=== PATIENT | female | born 2005 | race Caucasian/White ===

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

== ENCOUNTER → 2024-01-12 13:33 | Outpatient (CLI) | payer OTHER, MEDICAID, SELFPAY ==
[2024-01-12 15:16] LABS: Add Manual Diff / Slide Review NO; Basophils Absolute Auto 0 /uL (0-100); Basophils Percent Auto 0.3 % (0-2); Eosinophils Absolute Auto 100 /uL (0-450); Eosinophils Percent Auto 1.5 % (2-4); Hematocrit 49.3 % (36-46); Hemoglobin 16.8 g/dL (12.0-16.0); Lymphocytes Absolute Auto 2100 /uL (1100-4500); Lymphocytes Percent Auto 22.6 % (25-40); Mean Corpuscular Hemoglobin 32.4 PG (26-34); Mean Corpuscular Volume 95.2 fL (80-100); Monocytes Absolute Auto 500 /uL (0-900); Monocytes Percent Auto 5.2 % (3-14); Neutrophils Absolute Auto 6400 /uL (1500-7000); Neutrophils Percent Auto 70.4 % (50-75); Platelet Count 268 X10^3/uL (150-400); Red Blood Cell Count 5.18 X10^6/uL (4.0-5.2); Red Cell Distribution Width 16.1 % (11.6-14.8); White Blood Cell Count 9.2 X10^3/uL (4.5-11.0)
[2024-01-12 15:32] LABS: Alanine Aminotransferase 22 IU/L (<35); Albumin 4.5 g/dL (3.5-5.0); Albumin Globulin Ratio 1.5 (1.0-2.8); Alkaline Phosphatase 75 U/L (38-126); Aspartate Aminotransferase 32 IU/L (14-36); BUN Creatinine Ratio 18.8 (6-22); Bilirubin Total 0.7 mg/dL (0.2-1.3); Blood Urea Nitrogen 12 mg/dL (7-17); Calcium 9.2 mg/dL (8.4-10.2); Carbon Dioxide 27 mmol/L (22-32); Chloride 100 mmol/L (98-107); Estimated Glomerular Filt Rate > 60 mL/min (>60); Glucose 87 mg/dL (70-100); HEMOLYSIS < 15 (0-50); Potassium 3.6 mmol/L (3.4-5.1); Sodium 136 mmol/L (137-145); Total Protein 7.5 g/dL (6.3-8.2)
[2024-01-12 15:55] LABS: Progesterone, Total 4.19 ng/mL
[2024-01-12 16:10] LABS: Ferritin 19 ng/mL (6-137)
[2024-01-12 16:11] LABS: Estradiol, Total 51.7 pg/mL
== END ==
LOC: LAB 13:35
PROVIDERS: PCP Family Medicine; Referring Provider Naturopath; Visit Provider Naturopath
DX: F64.9 Gender identity disorder, unspecified (principal); N94.6 Dysmenorrhea, unspecified
CPT/HCPCS: 36415; 80053; 82670; 82728; 84144; 84402; 84403; 85025

== ENCOUNTER 2024-01-12 18:17 | Emergency (ER) | payer OTHER, MEDICAID, SELFPAY ==
[2024-01-12 18:28] VITALS: BP 138/100; PULSE 92; RESP 18; TEMP 36.8; O2SAT 99; BMI 23.4
[2024-01-12 19:11] LABS: Appearance Urine UA CLEAR; Bilirubin Urine UA NEGATIVE (NEGATIVE); Color Urine UA YELLOW; Glucose Urine UA NEGATIVE (Negative); Ketones Urine UA NEGATIVE (NEGATIVE); Leukocyte Esterase Urine UA 3+ (NEGATIVE); Nitrite Urine UA NEGATIVE (Negative); Occult Blood Urine UA NEGATIVE (Negative); Protein Urine UA NEGATIVE (Negative); Specific Gravity Urine UA <=1.005 (1.000-1.035); Urobilinogen Urine UA 0.2 E.U./dL (0.2)
[2024-01-12 19:15] LABS: pH Urine UA 6.5 (4.5-8.0)
[2024-01-12 19:19] LABS: Bacteria Urine Moderate (10-30); Culture Indicated Urine Specimen Cultured; RBC Urine 0-1/HPF (0-5/HPF); Squamous Epithelial Cell Urine 1-5 /HPF (0-5/HPF); Urine Volume 10mL (spun); WBC Urine 10-30/HPF (0-5/HPF)
--- NOTE | 2024-01-12 21:04 | DI.RAD.S_ITS ---
PROCEDURE: XR LUMBAR SPINE 2-3V INDICATIONS: LUMBAR BACK PAIN 'WANT TO KNOW IF I HAVE SCOLIOSIS' TECHNIQUE: 3 views of the lumbar spine were acquired. COMPARISON: [facility], [place], XR THORACIC SPINE 2V, 01/12/2024, 22:15. FINDINGS: Bones: 5 [id number] vertebrae are present. There is normal bony alignment. No vertebral body compression fractures. No suspicious bony lesions. Soft tissues: Overlying bowel gas pattern is normal. No suspicious soft tissue calcifications. IMPRESSION: No acute bony abnormality. Dictated by: Real De M.D. on 01/12/2024 at 22:58 Approved by: Real De M.D. on 01/12/2024 at 22:59
--- NOTE | 2024-01-12 21:04 | DI.RAD.S_ITS ---
PROCEDURE: XR THORACIC SPINE 2V INDICATIONS: lumbar back pain TECHNIQUE: 2 views of the thoracic spine were acquired. COMPARISON: [facility], [place], XR LUMBAR SPINE 2-3V, 01/12/2024, 22:15. FINDINGS: Bones: No fractures or dislocations. Minimal thoracic scoliosis. No suspicious bony lesions. 12 pairs of ribs are noted, and appear intact where visualized. Soft tissues: No paravertebral stripe thickening. IMPRESSION: Minimal thoracic scoliosis. Dictated by: Real De M.D. on 01/12/2024 at 22:56 Approved by: Real De M.D. on 01/12/2024 at 22:58
--- NOTE | 2024-01-12 21:05 | ED_ITS ---
HPI - Back Pain/Injury General Chief Complaint: Back Pain/Injury Stated Complaint: lower back px Time Seen by Provider: 01/12/24 20:17 Source: patient History of Present Illness HPI Narrative: 18yo FTM transgender patient presents for lower back pain. Patient states tylenol and ibuprofen don't work for pain, and occasionally he has to use a cane to ambulate. Patient states that he seen his primary care doctor for this issue, but ?nothing has been done?. States that he would like imaging to see if he has scoliosis Related Data Home Medications Medication Instructions Recorded Confirmed anastrozole 1 mg tablet 1 mg PO DAILY 08/12/23 11/20/23 testosterone cypionate 200 mg/mL 50 mg SUBCUT QWEEK 11/11/23 11/20/23 intramuscular oil Previous Rx's Medication Instructions Recorded oxcarbazepine 300 mg tablet See Rx Instructions PO BID #90 tabs 08/12/23 (Trileptal) propranolol 10 mg tablet 10 mg PO BID PRN anxiety, rapid 08/12/23 heart rate #60 tabs sertraline 100 mg tablet (Zoloft) 100 mg PO DAILY #90 tabs 10/06/23 dextroamphetamine-amphetamine ER 30 mg PO DAILY 30 days #30 caps 11/11/23 30 mg 24hr capsule,extend release (Adderall XR) lorazepam 0.5 mg tablet 0.25 - 0.5 mg (0.5 - 1 x 0.5 mg) 11/11/23 PO BID PRN anxiety/panic #30 tabs aripiprazole 5 mg tablet (Abilify) 5 mg PO DAILY #30 tabs 12/08/23 dextroamphetamine-amphetamine ER 30 mg PO DAILY #30 caps 12/08/23 30 mg 24hr capsule,extend release (Adderall XR) naltrexone 50 mg tablet 50 mg PO DAILY #30 tabs 12/08/23 methocarbamol 500 mg tablet 500 mg PO TID PRN muscle spasm #30 01/12/24 tabs methylprednisolone 4 mg tablets in See Rx Instructions PO .COMPLEX 01/12/24 a dose pack (Medrol ([place])) #21 ea Allergies Allergy/AdvReac Type Severity Reaction Status Date / Time [place] And Derivatives AdvReac Unknown Rash Uncoded 11/20/23 12:50 Patient History Medical History Alcohol addiction Bipolar 1 disorder Gender dysphoria Bulimia (~2020) History of bipolar disorder (~2017) Anorexia nervosa (~2019) Migraines (~2018) Fractures Chronic back pain (~2014) History of recurrent ear infection (~2014) Painful menstrual periods (~2017) History of self-harm ADHD (~2009) HCAMP (generalized anxiety disorder) (~2009) PTSD (post-traumatic stress disorder) (~2008) Major depression, single episode Family History Father Mental health problem Anxiety PTSD (post-traumatic stress disorder) Depression Substance use Mother Mental health problem Gastroparesis Gastritis History of bipolar disorder Depression History of anorexia nervosa History of bulimia PTSD (post-traumatic stress disorder) Anxiety Sister Mental health problem Autism PTSD (post-traumatic stress disorder) Anxiety ADHD Sister Mental health problem ADHD Grandmother Thyroid disorder History of anorexia nervosa Social History household members: friend(s) Smoking Status: Current every day smoker alcohol intake: former Smoking Status: Current every day smoker tobacco type: vaping alcohol intake frequency: a few times a month Alcohol type: beer and hard liquor Substance Use Type: marijuana Exam Initial Vital Signs Initial Vital Signs: Vital Signs Temperature 98.3 F 01/12/24 18:28 Pulse Rate 92 H 01/12/24 18:28 Respiratory Rate 18 01/12/24 18:28 Blood Pressure 138/100 H 01/12/24 18:28 Pulse Oximetry 99 01/12/24 18:28 Oxygen Delivery Method Room Air 01/12/24 18:28 Const: Awake, alert, no acute distress, nontoxic appearing MSK: Atraumatic, no midline tenderness, full range of motion, pulses equal Skin: Warm, Dry, intact, no rashes Neuro: AO x3, CN II-XII grossly intact, moves all extremities Course Orders Ordered: ED Orders 01/12/24 21:04 XR lumbar spine 2-3V Stat XR thoracic spine 2V Stat Discontinued Medications Ketorolac Tromethamine (Ketorolac 30 Mg/Ml Vial) 30 mg IM NOW ONE Stop: 01/12/24 21:06 Last Admin: 01/12/24 21:20 Dose: 30 mg Documented By: HAL Lidocaine (Lidocaine 5% Patch) 1 each TOP NOW ONE Stop: 01/12/24 21:06 Last Admin: 01/12/24 21:21 Dose: 1 each Documented By: HAL Methocarbamol (Methocarbamol 500 Mg Tablet) 750 mg PO NOW ONE Stop: 01/12/24 21:06 Last Admin: 01/12/24 21:19 Dose: 750 mg Documented By: HAL Vital Signs Vital signs: Vital Signs - 8 hr 01/12/24 23:12 Pulse Rate 94 H Respiratory Rate 16 Blood Pressure 133/85 Pulse Oximetry 100 Oxygen Delivery Method Room Air MDM - Back Pain/Injury Lab Data Labs: Lab Results 01/12/24 Range/Units 18:40 Urine Color Yellow Urine Appearance Clear Urine pH 6.5 (4.5-8.0) Ur Specific [place] <=1.005 (1.000-1.035) Urine Protein Negative (Negative) Urine Glucose (UA) Negative (Negative) g/dL Urine Ketones Negative (NEGATIVE) Urine Occult Blood Negative (Negative) Urine Nitrate Negative (Negative) Urine Bilirubin Negative (NEGATIVE) Urine Urobilinogen 0.2 (0.2) E.U./dL Ur Leukocyte Esterase 3+ H (NEGATIVE) Urine RBC 0-1/hpf (0-5/HPF) Urine WBC 10-30/hpf H (0-5/HPF) Ur Squamous Epith Cells 1-5 /hpf (0-5/HPF) Urine Bacteria Moderate (10-30) H (None) Ur Culture Indicated? Specimen cultured Vol Urine Centrifuged 10ml (spun) Point of Care Testing Test Results Negative Urine Dip Bedside Urine Glucose Negative Bedside Urine Bilirubin - Negative Bedside Urine Ketone - Negative Bedside Urine Occult Blood - Negative Bedside Urine Protein - Negative Bedside Urine Urobilinogen - Negative Bedside Urine Nitrite - Negative Bedside Urine Leukocytes +++ 500 Esterase MDM Narrative Medical decision making narrative: Lumbar back pain, patient states that they are most concerned about getting imaging to see if they truly have scoliosis that may be related to their lumbar back pain. No signs or symptoms of cauda equina, no midline tenderness. Patient given muscle relaxer and Toradol injection with improvement in pain. X- rays show mild thoracic scoliosis, no other acute findings. Patient given steroid pack and muscle relaxers, counseled on continued follow up with their primary care doctor. Note for work provided Discharge Plan Departure Patient Disposition: Home Clinical Impression: Lumbar back pain Instructions: DI for Low Back Pain Activity Restrictions/Additional Instructions: Your x-rays did show that you have a small amount of upper back curvature consistent with scoliosis. You can try muscle relaxers along with Tylenol and ibuprofen to see if this helps relieve your pain. Follow up with your primary care doctor Prescriptions: New methylprednisolone [Medrol ([place])] 4 mg tablets,dose pack See Rx Instructions .ROUTE .COMPLEX Qty: 21 0RF Rx Instructions: orally per package directions methocarbamol 500 mg tablet 500 mg PO TID PRN (Reason: muscle spasm) Qty: 30 0RF No Action sertraline [Zoloft] 100 mg tablet 100 mg PO DAILY Qty: 90 3RF testosterone cypionate 200 mg/mL oil 50 mg SUBCUT QWEEK lorazepam 0.5 mg tablet 0.25 - 0.5 mg PO BID PRN (Reason: anxiety/panic) Qty: 30 0RF dextroamphetamine-amphetamine [Adderall XR] 30 mg capsule,extended release 24hr 30 mg PO DAILY 30 Days Qty: 30 0RF Rx Instructions: rx 3/3 aripiprazole [Abilify] 5 mg tablet 5 mg PO DAILY Qty: 30 11RF naltrexone 50 mg tablet 50 mg PO DAILY Qty: 30 11RF dextroamphetamine-amphetamine [Adderall XR] 30 mg capsule,extended release 24hr 30 mg PO DAILY Qty: 30 0RF Rx Instructions: rx 1/1 anastrozole 1 mg tablet 1 mg PO DAILY oxcarbazepine [Trileptal] 300 mg tablet See Rx Instructions PO BID Qty: 90 11RF Hold Instructions: Home Medication placed on hold at Doctor's office Rx Instructions: 600 mg in the morning and 300 mg in the evening propranolol 10 mg tablet 10 mg PO BID PRN (Reason: anxiety, rapid heart rate) Qty: 60 11RF Referrals: Gabe Ayala DO [Primary Care Provider] - Stand Alone Forms: Patient Portal/API, Work Release Note
[2024-01-12] MEDS: methocarbamoL 500 MG TABLET 750 MG PO (21:19)
[2024-01-12] MEDS: KETOROLAC 30 MG/ML VIAL IM (21:20)
[2024-01-12] MEDS: LIDOCAINE 5% PATCH 1 EACH TOP (21:21)
[2024-01-12 23:12] VITALS: BP 133/85; PULSE 94; RESP 16; O2SAT 100
== END 2024-01-12 23:12 | disposition home or self-care (01) ==
PROVIDERS: Emergency Provider Emergency Medicine; PCP Family Medicine
DX: M54.50 Low back pain, unspecified (principal); F64.9 Gender identity disorder, unspecified; N94.6 Dysmenorrhea, unspecified
CPT/HCPCS: 36415; 72070; 72100; 80053; 81001; 81003; 81025; 82670; 82728; 84144; 84402; 84403; 85025; 87086; 96372; 99284; J1885

== ENCOUNTER 2024-01-18 01:47 | Emergency (ER) | payer OTHER, MEDICAID, SELFPAY ==
[2024-01-18 02:09] VITALS: BP 143/91; PULSE 85; RESP 16; TEMP 36.6; O2SAT 98; BMI 28.3
--- NOTE | 2024-01-18 02:17 | ED.PSYCH ---
HPI - Psych <López Hernandez, DO - Last Filed: 01/18/24 18:11> General Chief Complaint: Psychiatric Symptoms Stated Complaint: suicidal ideation, hurt himself Time Seen by Provider: 01/18/24 01:52 Source: patient Mode of arrival: Ambulatory Limitations: no limitations History of Present Illness HPI Narrative: Patient is a 18-year-old female to male transgender with a history of bipolar disorder who arrives the emergency department by private vehicle for evaluation of anxiety, insomnia, feelings that he was manic, inability to find his Ativan which she normally takes for anxiety and superficial scrapes to the left forearm. He states he did the scrapes the left forearm in order to hurt himself and not necessarily kill himself. He was trying to commit suicide 3 times in the past. Has had progressively worsening symptoms over the past couple months. He did have alcohol to drink tonight and potentially has been drinking more alcohol recently which maybe contributing to the presenting factors today. Related Data Home Medications Medication Instructions Recorded Confirmed anastrozole 1 mg tablet 1 mg PO DAILY 08/12/23 01/18/24 testosterone cypionate 200 mg/mL 35 mg SUBCUT QWEEK 11/11/23 01/18/24 intramuscular oil famotidine 40 mg tablet 40 mg PO DAILY 01/16/24 01/18/24 cetirizine 10 mg tablet (Zyrtec) 10 mg PO DAILY 01/18/24 01/18/24 Previous Rx's Medication Instructions Recorded propranolol 10 mg tablet 10 mg PO BID PRN anxiety, rapid 08/12/23 heart rate #60 tabs sertraline 100 mg tablet (Zoloft) 100 mg PO DAILY #90 tabs 10/06/23 dextroamphetamine-amphetamine ER 30 mg PO DAILY 30 days #30 caps 11/11/23 30 mg 24hr capsule,extend release (Adderall XR) lorazepam 0.5 mg tablet 0.25 - 0.5 mg (0.5 - 1 x 0.5 mg) 11/11/23 PO BID PRN anxiety/panic #30 tabs aripiprazole 5 mg tablet (Abilify) 5 mg PO DAILY #30 tabs 12/08/23 dextroamphetamine-amphetamine ER 30 mg PO DAILY #30 caps 12/08/23 30 mg 24hr capsule,extend release (Adderall XR) naltrexone 50 mg tablet 50 mg PO DAILY #30 tabs 12/08/23 methocarbamol 500 mg tablet 500 mg PO TID PRN muscle spasm #30 01/12/24 tabs methylprednisolone 4 mg tablets in See Rx Instructions PO .COMPLEX 01/12/24 a dose pack (Medrol (Kyaw)) #21 ea Allergies Allergy/AdvReac Type Severity Reaction Status Date / Time [place] And Derivatives AdvReac Unknown Rash Uncoded 01/16/24 09:54 Review of Systems <López Hernandez DO - Last Filed: 01/18/24 18:11> Review of Systems ROS Unobtainable: All systems reviewed & are unremarkable except as noted in HPI and below Patient History <DO Tammie Maldonado Last Filed: 01/18/24 18:11> Medical History Alcohol addiction Bipolar 1 disorder Gender dysphoria Bulimia (~2020) History of bipolar disorder (~2017) Anorexia nervosa (~2019) Migraines (~2018) Fractures Chronic back pain (~2014) History of recurrent ear infection (~2014) Painful menstrual periods (~2017) History of self-harm ADHD (~2009) CHAMP (generalized anxiety disorder) (~2009) PTSD (post-traumatic stress disorder) (~2008) Major depression, single episode Family History Father Mental health problem Anxiety PTSD (post-traumatic stress disorder) Depression Substance use Mother Mental health problem Gastroparesis Gastritis History of bipolar disorder Depression History of anorexia nervosa History of bulimia PTSD (post-traumatic stress disorder) Anxiety Sister Mental health problem Autism PTSD (post-traumatic stress disorder) Anxiety ADHD Sister Mental health problem ADHD Grandmother Thyroid disorder History of anorexia nervosa Social History household members: friend(s) Smoking Status: Current every day smoker alcohol intake: former Smoking Status: Current every day smoker tobacco type: vaping alcohol intake frequency: a few times a month Alcohol type: beer and hard liquor Substance Use Type: marijuana Exam <DO Tammie Maldonado Last Filed: 01/18/24 18:11> Initial Vital Signs Initial Vital Signs: Vital Signs Temperature 97.8 F 01/18/24 02:09 Pulse Rate 85 01/18/24 02:09 Respiratory Rate 16 01/18/24 02:09 Blood Pressure 143/91 H 01/18/24 02:09 Pulse Oximetry 98 01/18/24 02:09 Oxygen Delivery Method Room Air 01/18/24 02:09 Const General: cooperative, comfortable and No ill appearing HENMT Head: normal to inspection and normocephalic Resp Effort & Inspection: normal respiratory effort Cardio Rate: regular rate GI Inspection: normal to inspection Skin Other: Multiple Superficial abrasions volar aspect left forearm Neuro General: patient alert, patient awake, patient oriented x3 and moves all extremities Extrem General: capillary refill normal <Yessi Hinojosa MD - Last Filed: 01/19/24 13:12> Initial Vital Signs Initial Vital Signs: Vital Signs Temperature 97.8 F 01/18/24 02:09 Pulse Rate 85 01/18/24 02:09 Respiratory Rate 16 01/18/24 02:09 Blood Pressure 143/91 H 01/18/24 02:09 Pulse Oximetry 98 01/18/24 02:09 Oxygen Delivery Method Room Air 01/18/24 02:09 Course <López Hernandez DO - Last Filed: 01/18/24 18:11> Orders Ordered: Discontinued Medications Acetaminophen (Acetaminophen 325 Mg Tablet) 975 mg PO NOW ONE Stop: 01/18/24 08:11 Last Admin: 01/18/24 08:16 Dose: 975 mg Documented By: MIRANDA Lorazepam (Lorazepam 0.5 Mg Tablet) 1 mg PO NOW ONE Stop: 01/18/24 03:06 Last Admin: 01/18/24 03:13 Dose: 1 mg Documented By: Methocarbamol (Methocarbamol 500 Mg Tablet) 500 mg PO NOW ONE Stop: 01/18/24 16:32 Last Admin: 01/18/24 16:35 Dose: 500 mg Documented By: SB Vital Signs Vital signs: Vital Signs - 8 hr 01/18/24 11:56 01/18/24 15:46 01/18/24 16:49 Pulse Rate 82 78 81 Respiratory Rate 14 16 18 Blood Pressure 109/69 105/64 131/88 Pulse Oximetry 98 98 99 Oxygen Delivery Method Room Air Room Air Room Air <Yessi Hinojosa MD - Last Filed: 01/19/24 13:12> Orders Ordered: Discontinued Medications Acetaminophen (Acetaminophen 325 Mg Tablet) 975 mg PO NOW ONE Stop: 01/18/24 08:11 Last Admin: 01/18/24 08:16 Dose: 975 mg Documented By: MIRANDA Lorazepam (Lorazepam 0.5 Mg Tablet) 1 mg PO NOW ONE Stop: 01/18/24 03:06 Last Admin: 01/18/24 03:13 Dose: 1 mg Documented By: Methocarbamol (Methocarbamol 500 Mg Tablet) 500 mg PO NOW ONE Stop: 01/18/24 16:32 Last Admin: 01/18/24 16:35 Dose: 500 mg Documented By: SB Vital Signs Vital signs: Vital Signs - 8 hr 01/18/24 11:56 01/18/24 15:46 01/18/24 16:49 Pulse Rate 82 78 81 Respiratory Rate 14 16 18 Blood Pressure 109/69 105/64 131/88 Pulse Oximetry 98 98 99 Oxygen Delivery Method Room Air Room Air Room Air MDM - Psych <López Hernandez, - Last Filed: 01/18/24 18:11> Medical Records Attestation: I reviewed the patient's medical records. Lab Data Attestation: I reviewed the patient's lab results. 01/18/24 02:30 01/18/24 02:30 Labs: Lab Results 01/18/24 01/18/24 01/18/24 Range/Units 02:30 12:03 12:03 WBC 9.2 (4.5-11.0) X10^3/uL RBC 5.21 H (4.0-5.2) X10^6/uL Hgb 16.9 H (12.0-16.0) g/dL Hct 49.2 H (36-46) % MCV 94.5 (80-100) fL MCH 32.5 (26-34) PG MCHC 34.4 (30-36) % RDW 15.7 H (11.6-14.8) % Plt Count 279 (150-400) X10^3/uL Neut % (Auto) 75.2 H (50-75) % Lymph % (Auto) 19.5 L (25-40) % [place] % (Auto) 4.5 (3-14) % Eos % (Auto) 0.3 L (2-4) % Baso % (Auto) 0.5 (0-2) % Neut # (Auto) 6900 (1918-2096) /uL Lymph # (Auto) 1800 (8387-3355) /uL [place] # (Auto) 400 (0-900) /uL Eos # (Auto) 0 (0-450) /uL Baso # (Auto) 0 (0-100) /uL Sodium 138 (137-145) mmol/L Potassium 3.9 (3.4-5.1) mmol/L Chloride 104 (98-107) mmol/L Carbon Dioxide 23 (22-32) mmol/L BUN 10 (7-17) mg/dL Creatinine 0.64 (0.52-1.04) mg/dL Estimated GFR > 60 (>60) mL/min BUN/Creatinine Ratio 15.6 (6-22) Glucose 118 H (70-100) mg/dL Calcium 9.5 (8.4-10.2) mg/dL Total Bilirubin 0.5 (0.2-1.3) mg/dL AST 26 (14-36) IU/L ALT 23 (<35) IU/L Alkaline Phosphatase 76 (38-126) U/L Total Protein 7.7 (6.3-8.2) g/dL Albumin 4.7 (3.5-5.0) g/dL Globulin 3.0 (1.7-4.1) g/dL Albumin/Globulin Ratio 1.6 (1.0-2.8) Lipase 95 (23-300) U/L TSH 2.83 (0.47-4.68) uIU/mL Urine Color Yellow Urine Appearance Clear Urine pH 6.0 Normal (4.5-8.0) Ur Specific [place] 1.025 (1.000-1.035) Urine Protein Negative (Negative) Urine Glucose (UA) Negative (Negative) g/dL Urine Ketones Negative (NEGATIVE) Urine Occult Blood 3+ H (Negative) Urine Nitrate Negative (Negative) Urine Bilirubin Negative (NEGATIVE) Urine Urobilinogen 0.2 (0.2) E.U./dL Ur Leukocyte Esterase Trace H (NEGATIVE) Urine RBC 10-30/hpf H (0-5/HPF) Urine WBC 5-10/hpf H (0-5/HPF) Ur Squamous Epith Cells None seen (0-5/HPF) Urine Bacteria Occasional (0-1) (None) Ur Culture Indicated? Specimen cultured Vol Urine Centrifuged 10ml (spun) Salicylates < 1.0 (<20) mg/dL U Opiates 300ng/mL cut Negative (Negative) Ur Oxycodone Screen Negative (Negative) Urine Methadone Screen Negative (Negative) Acetaminophen < 10 (10-30) ug/mL Ur Barbiturates Screen Negative (Negative) U Tricyclic Antidepress Negative (Negative) Ur Phencyclidine Scrn Negative (Negative) Ur Amphetamines Screen Positive H (Negative) U Methamphetamines Scrn Negative (Negative) Ur MDMA Scrn (Ecstasy) Negative (Negative) U Benzodiazepines Scrn Positive H (Negative) Urine Cocaine Screen Negative (Negative) U Marijuana (THC) Screen Positive H (Negative) Urine Specific [place] Normal (Normal) Ethyl Alcohol 70 H ( - 10) mg/dL Ur Creatinine Normal (Normal) SARS-CoV-2 (PCR) (Negative) 01/18/24 Range/Units 12:20 WBC (4.5-11.0) X10^3/uL RBC (4.0-5.2) X10^6/uL Hgb (12.0-16.0) g/dL Hct (36-46) % MCV (80-100) fL MCH (26-34) PG MCHC (30-36) % RDW (11.6-14.8) % Plt Count (150-400) X10^3/uL Neut % (Auto) (50-75) % Lymph % (Auto) (25-40) % [place] % (Auto) (3-14) % Eos % (Auto) (2-4) % Baso % (Auto) (0-2) % Neut # (Auto) (0913-0752) /uL Lymph # (Auto) (4207-8042) /uL [place] # (Auto) (0-900) /uL Eos # (Auto) (0-450) /uL Baso # (Auto) (0-100) /uL Sodium (137-145) mmol/L Potassium (3.4-5.1) mmol/L Chloride (98-107) mmol/L Carbon Dioxide (22-32) mmol/L BUN (7-17) mg/dL Creatinine (0.52-1.04) mg/dL Estimated GFR (>60) mL/min BUN/Creatinine Ratio (6-22) Glucose (70-100) mg/dL Calcium (8.4-10.2) mg/dL Total Bilirubin (0.2-1.3) mg/dL AST (14-36) IU/L ALT (<35) IU/L Alkaline Phosphatase (38-126) U/L Total Protein (6.3-8.2) g/dL Albumin (3.5-5.0) g/dL Globulin (1.7-4.1) g/dL Albumin/Globulin Ratio (1.0-2.8) Lipase (23-300) U/L TSH (0.47-4.68) uIU/mL Urine Color Urine Appearance Urine pH (4.5-8.0) Ur Specific [place] (1.000-1.035) Urine Protein (Negative) Urine Glucose (UA) (Negative) g/dL Urine Ketones (NEGATIVE) Urine Occult Blood (Negative) Urine Nitrate (Negative) Urine Bilirubin (NEGATIVE) Urine Urobilinogen (0.2) E.U./dL Ur Leukocyte Esterase (NEGATIVE) Urine RBC (0-5/HPF) Urine WBC (0-5/HPF) Ur Squamous Epith Cells (0-5/HPF) Urine Bacteria (None) Ur Culture Indicated? Vol Urine Centrifuged Salicylates (<20) mg/dL U Opiates 300ng/mL cut (Negative) Ur Oxycodone Screen (Negative) Urine Methadone Screen (Negative) Acetaminophen (10-30) ug/mL Ur Barbiturates Screen (Negative) U Tricyclic Antidepress (Negative) Ur Phencyclidine Scrn (Negative) Ur Amphetamines Screen (Negative) U Methamphetamines Scrn (Negative) Ur MDMA Scrn (Ecstasy) (Negative) U Benzodiazepines Scrn (Negative) Urine Cocaine Screen (Negative) U Marijuana (THC) Screen (Negative) Urine Specific [place] (Normal) Ethyl Alcohol ( - 10) mg/dL Ur Creatinine (Normal) SARS-CoV-2 (PCR) Negative (Negative) Point of Care Testing Test Results Negative MDM Narrative Medical decision making narrative: Patient reports feeling depressed. Does have thoughts of suicide but no specific plan. Superficial cuts to left forearm. Patient was medically cleared. Social work consult placed. Care turned over to day provider to disposition. Dr. Hinojosa - Care of patient signed to me by Dr. Hernandez. Patient resting comfortably, no new complaints. Pending TRAFFIC ENGINEERING TECHNICIAN evaluation. Dr hernandez: Patient has been seen by social work. Has been accepted at [facility]. Continues to be medically cleared. Patient was stable for transport. <Yessi Hinojosa MD - Last Filed: 01/19/24 13:12> Lab Data Labs: Lab Results 01/18/24 01/18/24 01/18/24 Range/Units 02:30 12:03 12:03 WBC 9.2 (4.5-11.0) X10^3/uL RBC 5.21 H (4.0-5.2) X10^6/uL Hgb 16.9 H (12.0-16.0) g/dL Hct 49.2 H (36-46) % MCV 94.5 (80-100) fL MCH 32.5 (26-34) PG MCHC 34.4 (30-36) % RDW 15.7 H (11.6-14.8) % Plt Count 279 (150-400) X10^3/uL Neut % (Auto) 75.2 H (50-75) % Lymph % (Auto) 19.5 L (25-40) % [place] % (Auto) 4.5 (3-14) % Eos % (Auto) 0.3 L (2-4) % Baso % (Auto) 0.5 (0-2) % Neut # (Auto) 6900 (1742-6935) /uL Lymph # (Auto) 1800 (5011-5041) /uL [place] # (Auto) 400 (0-900) /uL Eos # (Auto) 0 (0-450) /uL Baso # (Auto) 0 (0-100) /uL Sodium 138 (137-145) mmol/L Potassium 3.9 (3.4-5.1) mmol/L Chloride 104 (98-107) mmol/L Carbon Dioxide 23 (22-32) mmol/L BUN 10 (7-17) mg/dL Creatinine 0.64 (0.52-1.04) mg/dL Estimated GFR > 60 (>60) mL/min BUN/Creatinine Ratio 15.6 (6-22) Glucose 118 H (70-100) mg/dL Calcium 9.5 (8.4-10.2) mg/dL Total Bilirubin 0.5 (0.2-1.3) mg/dL AST 26 (14-36) IU/L ALT 23 (<35) IU/L Alkaline Phosphatase 76 (38-126) U/L Total Protein 7.7 (6.3-8.2) g/dL Albumin 4.7 (3.5-5.0) g/dL Globulin 3.0 (1.7-4.1) g/dL Albumin/Globulin Ratio 1.6 (1.0-2.8) Lipase 95 (23-300) U/L TSH 2.83 (0.47-4.68) uIU/mL Urine Color Yellow Urine Appearance Clear Urine pH 6.0 Normal (4.5-8.0) Ur Specific [place] 1.025 (1.000-1.035) Urine Protein Negative (Negative) Urine Glucose (UA) Negative (Negative) g/dL Urine Ketones Negative (NEGATIVE) Urine Occult Blood 3+ H (Negative) Urine Nitrate Negative (Negative) Urine Bilirubin Negative (NEGATIVE) Urine Urobilinogen 0.2 (0.2) E.U./dL Ur Leukocyte Esterase Trace H (NEGATIVE) Urine RBC 10-30/hpf H (0-5/HPF) Urine WBC 5-10/hpf H (0-5/HPF) Ur Squamous Epith Cells None seen (0-5/HPF) Urine Bacteria Occasional (0-1) (None) Ur Culture Indicated? Specimen cultured Vol Urine Centrifuged 10ml (spun) Salicylates < 1.0 (<20) mg/dL U Opiates 300ng/mL cut Negative (Negative) Ur Oxycodone Screen Negative (Negative) Urine Methadone Screen Negative (Negative) Acetaminophen < 10 (10-30) ug/mL Ur Barbiturates Screen Negative (Negative) U Tricyclic Antidepress Negative (Negative) Ur Phencyclidine Scrn Negative (Negative) Ur Amphetamines Screen Positive H (Negative) U Methamphetamines Scrn Negative (Negative) Ur MDMA Scrn (Ecstasy) Negative (Negative) U Benzodiazepines Scrn Positive H (Negative) Urine Cocaine Screen Negative (Negative) U Marijuana (THC) Screen Positive H (Negative) Urine Specific [place] Normal (Normal) Ethyl Alcohol 70 H ( - 10) mg/dL Ur Creatinine Normal (Normal) SARS-CoV-2 (PCR) (Negative) 01/18/24 Range/Units 12:20 WBC (4.5-11.0) X10^3/uL RBC (4.0-5.2) X10^6/uL Hgb (12.0-16.0) g/dL Hct (36-46) % MCV (80-100) fL MCH (26-34) PG MCHC (30-36) % RDW (11.6-14.8) % Plt Count (150-400) X10^3/uL Neut % (Auto) (50-75) % Lymph % (Auto) (25-40) % [place] % (Auto) (3-14) % Eos % (Auto) (2-4) % Baso % (Auto) (0-2) % Neut # (Auto) (2878-1933) /uL Lymph # (Auto) (1418-8683) /uL [place] # (Auto) (0-900) /uL Eos # (Auto) (0-450) /uL Baso # (Auto) (0-100) /uL Sodium (137-145) mmol/L Potassium (3.4-5.1) mmol/L Chloride (98-107) mmol/L Carbon Dioxide (22-32) mmol/L BUN (7-17) mg/dL Creatinine (0.52-1.04) mg/dL Estimated GFR (>60) mL/min BUN/Creatinine Ratio (6-22) Glucose (70-100) mg/dL Calcium (8.4-10.2) mg/dL Total Bilirubin (0.2-1.3) mg/dL AST (14-36) IU/L ALT (<35) IU/L Alkaline Phosphatase (38-126) U/L Total Protein (6.3-8.2) g/dL Albumin (3.5-5.0) g/dL Globulin (1.7-4.1) g/dL Albumin/Globulin Ratio (1.0-2.8) Lipase (23-300) U/L TSH (0.47-4.68) uIU/mL Urine Color Urine Appearance Urine pH (4.5-8.0) Ur Specific [place] (1.000-1.035) Urine Protein (Negative) Urine Glucose (UA) (Negative) g/dL Urine Ketones (NEGATIVE) Urine Occult Blood (Negative) Urine Nitrate (Negative) Urine Bilirubin (NEGATIVE) Urine Urobilinogen (0.2) E.U./dL Ur Leukocyte Esterase (NEGATIVE) Urine RBC (0-5/HPF) Urine WBC (0-5/HPF) Ur Squamous Epith Cells (0-5/HPF) Urine Bacteria (None) Ur Culture Indicated? Vol Urine Centrifuged Salicylates (<20) mg/dL U Opiates 300ng/mL cut (Negative) Ur Oxycodone Screen (Negative) Urine Methadone Screen (Negative) Acetaminophen (10-30) ug/mL Ur Barbiturates Screen (Negative) U Tricyclic Antidepress (Negative) Ur Phencyclidine Scrn (Negative) Ur Amphetamines Screen (Negative) U Methamphetamines Scrn (Negative) Ur MDMA Scrn (Ecstasy) (Negative) U Benzodiazepines Scrn (Negative) Urine Cocaine Screen (Negative) U Marijuana (THC) Screen (Negative) Urine Specific [place] (Normal) Ethyl Alcohol ( - 10) mg/dL Ur Creatinine (Normal) SARS-CoV-2 (PCR) Negative (Negative) Point of Care Testing Test Results Negative MDM Narrative Medical decision making narrative: Patient reports feeling depressed. Does have thoughts of suicide but no specific plan. Superficial cuts to left forearm. Patient was medically cleared. Social work consult placed. Care turned over to day provider to disposition. Dr. Hinojosa - Care of patient signed to me by Dr. Hernandez. Patient resting comfortably, no new complaints. Pending TRAFFIC ENGINEERING TECHNICIAN evaluation. Discharge Plan Departure Patient Disposition: Xfer Psychiatric Hosp Clinical Impression: Suicidal ideation, Abrasion of skin, Deliberate self-cutting Prescriptions: No Action sertraline [Zoloft] 100 mg tablet 100 mg PO DAILY Qty: 90 3RF testosterone cypionate 200 mg/mL oil 35 mg SUBCUT QWEEK lorazepam 0.5 mg tablet 0.25 - 0.5 mg PO BID PRN (Reason: anxiety/panic) Qty: 30 0RF dextroamphetamine-amphetamine [Adderall XR] 30 mg capsule,extended release 24hr 30 mg PO DAILY 30 Days Qty: 30 0RF Rx Instructions: rx 3/3 aripiprazole [Abilify] 5 mg tablet 5 mg PO DAILY Qty: 30 11RF naltrexone 50 mg tablet 50 mg PO DAILY Qty: 30 11RF dextroamphetamine-amphetamine [Adderall XR] 30 mg capsule,extended release 24hr 30 mg PO DAILY Qty: 30 0RF Rx Instructions: rx 1/1 famotidine 40 mg tablet 40 mg PO DAILY anastrozole 1 mg tablet 1 mg PO DAILY propranolol 10 mg tablet 10 mg PO BID PRN (Reason: anxiety, rapid heart rate) Qty: 60 11RF cetirizine [Zyrtec] 10 mg Tablet 10 mg PO DAILY methylprednisolone [Medrol (Kyaw)] 4 mg tablets,dose pack See Rx Instructions .ROUTE .COMPLEX Qty: 21 0RF Rx Instructions: orally per package directions methocarbamol 500 mg tablet 500 mg PO TID PRN (Reason: muscle spasm) Qty: 30 0RF Referrals: Gabe Ayala DO [Primary Care Provider] -
[2024-01-18 02:43] LABS: Add Manual Diff / Slide Review NO; Basophils Absolute Auto 0 /uL (0-100); Basophils Percent Auto 0.5 % (0-2); Eosinophils Absolute Auto 0 /uL (0-450); Eosinophils Percent Auto 0.3 % (2-4); Hematocrit 49.2 % (36-46); Hemoglobin 16.9 g/dL (12.0-16.0); Lymphocytes Absolute Auto 1800 /uL (1100-4500); Lymphocytes Percent Auto 19.5 % (25-40); Mean Corpuscular HGB Conc 34.4 % (30-36); Mean Corpuscular Hemoglobin 32.5 PG (26-34); Mean Corpuscular Volume 94.5 fL (80-100); Monocytes Absolute Auto 400 /uL (0-900); Monocytes Percent Auto 4.5 % (3-14); Neutrophils Absolute Auto 6900 /uL (1500-7000); Neutrophils Percent Auto 75.2 % (50-75); Platelet Count 279 X10^3/uL (150-400); Red Blood Cell Count 5.21 X10^6/uL (4.0-5.2); Red Cell Distribution Width 15.7 % (11.6-14.8); White Blood Cell Count 9.2 X10^3/uL (4.5-11.0)
[2024-01-18 02:54] LABS: Acetaminophen < 10 ug/mL (10-30); Alanine Aminotransferase 23 IU/L (<35); Albumin 4.7 g/dL (3.5-5.0); Albumin Globulin Ratio 1.6 (1.0-2.8); Alkaline Phosphatase 76 U/L (38-126); Aspartate Aminotransferase 26 IU/L (14-36); BUN Creatinine Ratio 15.6 (6-22); Bilirubin Total 0.5 mg/dL (0.2-1.3); Blood Urea Nitrogen 10 mg/dL (7-17); Calcium 9.5 mg/dL (8.4-10.2); Carbon Dioxide 23 mmol/L (22-32); Chloride 104 mmol/L (98-107); Estimated Glomerular Filt Rate > 60 mL/min (>60); Ethanol (ETOH) 70 mg/dL; Glucose 118 mg/dL (70-100); HEMOLYSIS < 15 (0-50); Lipase 95 U/L (23-300); Potassium 3.9 mmol/L (3.4-5.1); Salicylate < 1.0 mg/dL (<20); Sodium 138 mmol/L (137-145); Total Protein 7.7 g/dL (6.3-8.2)
[2024-01-18] MEDS: LORazepam 0.5 MG TABLET 1 MG PO (03:13)
[2024-01-18 03:24] LABS: Thyroid Stimulating Hormone 2.83 uIU/mL (0.47-4.68)
[2024-01-18 08:11] VITALS: BP 130/70; PULSE 75; RESP 18; O2SAT 100
[2024-01-18] MEDS: ACETAMINOPHEN 325 MG TABLET 975 MG PO (08:16)
[2024-01-18 11:56] VITALS: BP 109/69; PULSE 82; RESP 14; O2SAT 98
--- NOTE | 2024-01-18 11:57 | PC.NURSE ---
GEOGRAPHY TEACHER Note: Patient encouraged to give urine sample. Patient denies having to use the restroom at this time.
[2024-01-18 12:19] LABS: UR Morphine/Opiate cutoff 300 Negative (Negative); Ur Creatinine Normal (Normal); Ur Specific Gravity Normal (Normal); Urine Amphetamines Positive (Negative); Urine Barbiturates Negative (Negative); Urine Benzodiazepines Positive (Negative); Urine Cocaine Negative (Negative); Urine MDMA Negative (Negative); Urine Methadone Negative (Negative); Urine Methamphetamines Negative (Negative); Urine Oxycodone Negative (Negative); Urine Phencyclidine Negative (Negative); Urine Tetrahydrocannabinol Positive (Negative); Urine Tricyclic Antidepressant Negative (Negative); Urine pH Normal (Normal)
[2024-01-18 12:27] LABS: Appearance Urine UA CLEAR; Bacteria Urine Occasional (0-1); Bilirubin Urine UA NEGATIVE (NEGATIVE); Color Urine UA YELLOW; Culture Indicated Urine Specimen Cultured; Glucose Urine UA NEGATIVE (Negative); Ketones Urine UA NEGATIVE (NEGATIVE); Leukocyte Esterase Urine UA TRACE (NEGATIVE); Nitrite Urine UA NEGATIVE (Negative); Occult Blood Urine UA 3+ (Negative); Protein Urine UA NEGATIVE (Negative); RBC Urine 10-30/HPF (0-5/HPF); Specific Gravity Urine UA 1.025 (1.000-1.035); Squamous Epithelial Cell Urine None Seen (0-5/HPF); Urine Volume 10mL (spun); Urobilinogen Urine UA 0.2 E.U./dL (0.2); WBC Urine 5-10/HPF (0-5/HPF)
--- NOTE | 2024-01-18 12:40 | CM.SWNOTE ---
ED HAND CROWN POUNCER Assessment Note HAND CROWN POUNCER - Community Outreach Manager Assessment HAND CROWN POUNCER/Community Outreach Manager Assessment Time Spent with Patient Start date 01/18/24 Visit Start Time 11:55 End date 01/18/24 Visit End Time 12:10 Total time Care Management spent on 15 minutes patient visit-in minutes Mental Health Screening Include Onset, Duration, Intensity Presenting Problem Patient presents to ED last night due to concern for increase in SI, relapse in self harm last night for the first time in a long time and afraid of keeping self safe. Patient has hx of suicide attempts, most recently 3 years ago. Patient presents seeking voluntary inpatient hospitalization. Precipitating Event(s) Patient states they are about to move into apartment on their own for the first time. Patient endorses increase in SI over the last 2 months, noticed increase in drinking in the last couple months and noticing lack of self control. Patient states they just started experiencing visual hallucinations for the first time as well. Patient endorses lack of sleep as well. Patient Strengths Patient has supports and patient is seeking help. Current Behavioral Health Provider(s) Patient denies any current Include Facility, Provider, Ph. # outpatient MH or EMILY providers but is interested in them. Psych. Hx Mental Health and Chemical Patient has hx of Bipolar 1 Dependency Disorder, ETOH use disorder, ADHD, CHAMP, PTSD, and Depression. Patient has hx of ETOH use, most recent use yesterday, patient endorses increase in ETOH use, daily Marijuana use and states they recently huffed CO2 from a can. Patient states they have been struggling with their self control and impulse control lately. Patient is prescribed Abilify and recently started the medication a month ago, patient also takes Sertraline and Adderall, patient endorses concern that the Sertraline does not help their depression anymore. Family Hx of Behavioral Abuse Patient has family hx of mental illness, patient's mother has Bipolar Disorder and patient's father struggled with alcohol disorder and patient states he almost from it. Psychiatric Hospitalizations (date(s)/ Patient was at [facility] location) in 2021 after suicide attempt. Psychosocial information & Support Patient is 18 y/o transgender Systems male (He/Him/His) who resides in [place]. 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 Substance Abuse Screening Include Onset, Duration, Intensity Presenting Problem Patient states that they have been drinking 4-5 vodka drinks a day in recent months. Patient presented with a BAL of 70 upon arrival. Rehab Facilities? ((Date(s), Location(s) Patient has a hx of going to ) detox in November 2023 for ETOH use. Legal Concerns Legal Matters - Outstanding Issues None reported Mental Status Orientation (Person/Place/Time) A/Ox4 Stated Mood mentally ill Affect (Congruent with Mood?) disthymic, full range, congruent with mood. Thought Content - Specify/Describe Patient denies auditory Obsessions, Delusions, Hallucinations hallucinations but states that yesterday they started experiencing visual hallucinations. Thought Processes (Mtqiwtc-Bcrbzefk-Utzp goal oriented, coherent Idwvfnni-Pvrfjxzf-Zoiazbumhr- Wkbokvempelrds-Ueptxwd-Dxclhhahrlyl- Thought Blocking) Speech (Jlrbdb-Xhjz-Netjcsm-Rapid-Soft- normal, soft Loud-Pressured) Motor (Effafd-Vexdeacly-Jsok-Other) normal Insight (Rqfd-Ptjh-Cjfn/Limited) fair/limited due to age Judgement (Vvpl-Zpkm-Jmdm/Limited) fair/limited due to age Impulse Control (Adequate-Impaired) adequate during assessment, patient endorses concern for their impulse control. Memory (Bicpaekgm-Pxjdmn-Dvmtue, intact, not formally assessed Impaired-Intact) Concentration (Intact-Impaired) intact Attention (Intact-Impaired) intact Behavior (Appropriate-Inappropriate) appropriate Additional Comment patient presents as calm, cooperative and communicative. Risk Assessment Suicidal Ideation (Plan) Yes Homicidal Ideation (Plan) No Comment Patient presents with increasing SI, no current thoughts of plans. Patient is fearful of acting on SI impulsively. Patient engaged in self harm for the first time in a long time last night with razor on left forearm. Patient endorses hx of 3 suicide attempts, patient overdosed at age 12, cut self in attempt to bleed out at age 14 and attempted to hang self at age 15. Intervention Intervention HAND CROWN POUNCER enters room to meet with patient. Patient presents with concern for increasing SI, recent self harm, recent increase in ETOH use and lack of self control. Patient endorses he is seeking voluntary inpatient hospitalization. It is the opinion of this HAND CROWN POUNCER that patient would be appropriate for and benefit from voluntary co-occurring hospitalization for safety, crisis stabilization and medication management. HAND CROWN POUNCER reviews this with ED provider Dr. Hinojosa who indicates agreement and understanding. Plan RA Plan HAND CROWN POUNCER to seek voluntary co- occurring placement for patient upon medical clearance. EDE GonzalezSW
[2024-01-18 12:42] LABS: COVID19 -Nasal RAPID Negative (Negative)
--- NOTE | 2024-01-18 15:34 | PC.NURSE ---
Addendum entered by Riley Riddle R.N. 01/18/24 15:48: This RN checks on patient and asks if he has 2 weeks of Anastrozole. He does not and does not have a way of getting some. He states I'm OK not taking them for 2 weeks. [facility] made aware and will talk to their provider. Original Note: Spoke to Alice DANIELS @ [facility] ([phone]). Pt needs to provide 2 wks of testosterone and 2 wks of Anastrozole in order to be admitted to their program. [facility] RN and [facility] aware. Will discuss with pt. Negative preg test results faxed to [phone]
[2024-01-18 15:46] VITALS: BP 105/64; PULSE 78; RESP 16; O2SAT 98
[2024-01-18] MEDS: methocarbamoL 500 MG TABLET PO (16:35)
[2024-01-18 16:49] VITALS: BP 131/88; PULSE 81; RESP 18; O2SAT 99
--- NOTE | 2024-01-18 18:17 | CM.SWNOTE ---
ED PLANNING ENGINEER Note PLANNING ENGINEER calls facilities with co-occurring treatment. PLANNING ENGINEER calls [facility], it is reported that they have beds and can review patient. PLANNING ENGINEER calls [facility], it is reported that they have beds and can review patient. [facility] speaks with RN and it is reported that patient will need to bring Testosterone and Estogen blocking rx with two week supply. Patient has Testosterone rx but is out of the other medication with out new refill. Patient states he is fine without rx for two weeks. [facility] states that they have rx for Testosterone and Estogen blocking medication at facility and they can accept patient. Patient endorses preference for [facility]. Patient accepted at [facility], arrival time of 2100. Intake -Candice, Accepting provider ALISHA Salcedo. RN-RN Ph. # [phone]. PLANNING ENGINEER informs [facility] of acceptance elsewhere. PLANNING ENGINEER calls [facility] and schedules transport for 1939. PLANNING ENGINEER to inform patient of this, patient is currently sleeping. PLANNING ENGINEER to provide patient with crisis resources, EMILY resources, and list of MH providers that accept patient's insurance. Plan: patient to transfer to [facility] in [place] for voluntary dual dx/co-occurring treatment this evening. EDE GonzalezSW
[2024-01-18 19:47] VITALS: BP 128/64; PULSE 73; RESP 16; O2SAT 95
--- NOTE | 2024-01-18 20:08 | PC.NURSE ---
This RN calls and gives report to Masood at [facility].
== END 2024-01-18 19:45 ==
PROVIDERS: Emergency Medicine; Emergency Provider Emergency Medicine; PCP Family Medicine
DX: R45.851 Suicidal ideations (principal); S50.812A Abrasion of left forearm, initial encounter; X78.9XXA Intentional self-harm by unspecified sharp object, initial encounter; Z11.52 Encounter for screening for COVID-19
CPT/HCPCS: 36415; 80053; 80305; 80320; 80329; 81001; 81025; 83690; 84443; 85025; 87086; 87635; 99284; G0480

== ENCOUNTER → 2024-02-20 14:29 | Outpatient (CLI) | payer OTHER, MEDICAID, SELFPAY | PROVIDERS: PCP Family Medicine; Referring Provider Internal Medicine; Visit Provider Internal Medicine | DX: Z23 Encounter for immunization (principal) | CPT/HCPCS: 90471; 90656 ==

== ENCOUNTER 2024-02-27 18:03 | Emergency (ER) | payer OTHER, MEDICAID, SELFPAY ==
[2024-02-27] VITALS (9 sets, daily range): BP systolic 128–152; BP diastolic 71–88; PULSE 62–100; RESP 16–18; TEMP 36.8; O2SAT 97–99; BMI 27.3
--- NOTE | 2024-02-27 18:15 | DI.RAD.S_ITS ---
PROCEDURE: XR CHEST 2V INDICATIONS: cough,SOB TECHNIQUE: 2 views of the chest were acquired. COMPARISON: None. FINDINGS: Surgical changes and devices: None. Lungs and pleura: Lungs are clear. No pleural effusions or pneumothorax. Linear atelectasis, right mid lung field. Mediastinum: Mediastinal contours are normal. Heart size is normal. Bones and chest wall: No suspicious bony abnormalities. Soft tissues appear unremarkable. IMPRESSION: Platelike atelectasis, right mid lung field. No focal infiltrates. Dictated by: Joshua Brooks M.D. on 02/27/2024 at 18:59 Approved by: Joshua Brooks M.D. on 02/27/2024 at 19:00
--- NOTE | 2024-02-27 18:22 | ED_ITS ---
HPI - SOB/Dyspnea General Chief Complaint: Shortness of Breath/Dyspnea Stated Complaint: SoB, Abd Pain Time Seen by Provider: 02/27/24 18:16 Source: patient Mode of arrival: Ambulatory Limitations: no limitations History of Present Illness HPI Narrative: 18-year-old female complains of week and a half of cough, some shortness of breath today. No history of asthma, no use of inhaler. Also complains of lower abdominal discomfort for the last couple of days. No nausea or vomiting or diarrhea. No black stools, no red stools. No hard stools. No vaginal discharge, no abnormal vaginal bleeding. No fevers or chills. No dysuria or frequency of urination. Related Data Home Medications Medication Instructions Recorded Confirmed testosterone cypionate 200 mg/mL 35 mg SUBCUT QWEEK 11/11/23 02/10/24 intramuscular oil cetirizine 10 mg tablet (Zyrtec) 10 mg PO DAILY 01/18/24 02/10/24 buspirone 10 mg tablet 10 mg PO 3XD anxiety 02/09/24 02/10/24 cyanocobalamin (vitamin B-12) 1,000 mcg PO DAILY 02/09/24 02/10/24 1,000 mcg tablet gabapentin 300 mg capsule 300 mg PO 3XD 02/09/24 02/10/24 lithium carbonate 300 mg capsule 300 mg PO 3XD depressive disorder 02/09/24 02/10/24 lorazepam 1 mg tablet 1 mg PO BID PRN anxiety attack 02/09/24 02/10/24 magnesium oxide 400 mg (241.3 mg 400 mg PO ONCE PM 02/09/24 02/10/24 magnesium) tablet olanzapine 5 mg tablet 5 mg PO ONCE PM psychosis 02/09/24 02/10/24 prazosin 2 mg capsule 2 mg PO ONCE PM nightmares 02/09/24 02/10/24 quetiapine 100 mg tablet 100 mg PO ONCE PM depressive 02/09/24 02/10/24 disorder sulindac 200 mg tablet 200 mg PO DAILY chronic pain 02/09/24 02/10/24 trazodone 100 mg tablet 100 mg PO ONCE PM insomnia 02/09/24 02/10/24 docusate sodium 100 mg capsule 100 mg PO DAILY 02/10/24 02/10/24 famotidine 40 mg tablet 40 mg PO DAILY 02/10/24 02/10/24 sertraline 100 mg tablet (Zoloft) 50 mg PO DAILY 02/10/24 Previous Rx's Medication Instructions Recorded aripiprazole 5 mg tablet (Abilify) 5 mg PO DAILY #30 tabs 12/08/23 methocarbamol 500 mg tablet 500 mg PO TID PRN muscle spasm #30 01/12/24 tabs albuterol sulfate 90 mcg/actuation 2 puff inhalation Q6H PRN 02/27/24 aerosol inhaler shortness of breath or wheezing #8.5 grams Allergies Allergy/AdvReac Type Severity Reaction Status Date / Time Snowflake [employer]ivatives Allergy Unknown mouth Verified 02/27/24 18:39 sores, nausea Review of Systems Review of Systems Narrative: see HPI Patient History Medical History Alcohol addiction Bipolar 1 disorder Gender dysphoria Bulimia (~2020) History of bipolar disorder (~2017) Anorexia nervosa (~2019) Migraines (~2018) Fractures Chronic back pain (~2014) History of recurrent ear infection (~2014) Painful menstrual periods (~2017) History of self-harm ADHD (~2009) CHAMP (generalized anxiety disorder) (~2009) PTSD (post-traumatic stress disorder) (~2008) Major depression, single episode Family History Father Mental health problem Anxiety PTSD (post-traumatic stress disorder) Depression Substance use Mother Mental health problem Gastroparesis Gastritis History of bipolar disorder Depression History of anorexia nervosa History of bulimia PTSD (post-traumatic stress disorder) Anxiety Sister Mental health problem Autism PTSD (post-traumatic stress disorder) Anxiety ADHD Sister Mental health problem ADHD Grandmother Thyroid disorder History of anorexia nervosa Social History household members: friend(s) Smoking Status: Current every day smoker alcohol intake: former Smoking Status: Current every day smoker tobacco type: vaping alcohol intake frequency: a few times a month Alcohol type: beer and hard liquor Substance Use Type: marijuana Exam Narrative Exam Narrative: GENERAL: Well-developed patient, in mild distress. HEAD: Atraumatic. Normocephalic. EYES: Pupils equal round and reactive. Extraocular motions intact. No scleral icterus. No injection or drainage. ENT: Nose without bleeding, purulent drainage. Throat without erythema, tonsillar hypertrophy or exudate. Airway patent. NECK: Trachea midline. Non tender CARDIOVASCULAR: Regular rate and rhythm without murmurs, gallops, or rubs. RESPIRATORY: Clear to auscultation. Breath sounds equal bilaterally. No wheezes, rales, or rhonchi. GASTROINTESTINAL: Abdomen soft, non-tender, nondistended. EXTREMITIES: No edema or joint tenderness. BACK: Nontender without deformity or crepitance. No flank tenderness. NEURO: AOx3. Motor functions grossly nonfocal SKIN: No rash or erythema of visible areas Initial Vital Signs Initial Vital Signs: Vital Signs Temperature 98.2 F 02/27/24 18:04 Pulse Rate 92 H 02/27/24 18:04 Respiratory Rate 17 02/27/24 18:04 Blood Pressure 152/88 H 02/27/24 18:04 Pulse Oximetry 97 02/27/24 18:04 Oxygen Delivery Method Room Air 02/27/24 18:04 Course Orders Ordered: ED Orders 02/27/24 18:08 Respiratory Panel (Film Array) Stat 02/27/24 18:15 Chest [XR chest 2V] Stat 02/27/24 18:56 CBC Auto Diff [Complete Blood Count AUTO DIFF] Stat CMP [Comprehensive Metabolic Panel] Stat 02/27/24 19:07 Urinalysis and Microscopic Stat Discontinued Medications Albuterol (Albuterol 2.5 Mg/3 Ml Neb (Adult)) 2.5 mg INH NOW ONE Stop: 02/27/24 18:38 Last Admin: 02/27/24 19:01 Dose: 2.5 mg Documented By: MARIA DOLORES Albuterol (Albuterol Hfa Prepack) 1 box [facility] DIRECTED ONE Stop: 02/27/24 19:28 Last Admin: 02/27/24 19:36 Dose: Not Given Documented By: MIRANDA Vital Signs Vital signs: Vital Signs - 8 hr 02/27/24 18:04 02/27/24 18:06 02/27/24 18:07 Temperature 98.2 F Pulse Rate 92 H 94 H Respiratory Rate 17 Blood Pressure 152/88 H Pulse Oximetry 97 97 99 Oxygen Delivery Method Room Air 02/27/24 18:07 02/27/24 18:30 02/27/24 18:30 Temperature Pulse Rate 88 Respiratory Rate Blood Pressure 152/88 H 128/71 Pulse Oximetry 97 Oxygen Delivery Method 02/27/24 18:39 02/27/24 18:39 02/27/24 19:00 Temperature Pulse Rate 62 83 Respiratory Rate Blood Pressure 131/71 Pulse Oximetry 98 97 Oxygen Delivery Method 02/27/24 19:01 02/27/24 19:30 02/27/24 20:00 Temperature Pulse Rate 77 100 H 89 Respiratory Rate 16 18 18 Blood Pressure Pulse Oximetry 97 98 97 Oxygen Delivery Method Room Air MDM - SOB/Dyspnea Lab Data Attestation: I reviewed the patient's lab results. Lab results narrative: White blood cell count 43416, hemoglobin 14.7, platelets [id number] adequate. CMP unremarkable. LFTs normal. Lipase normal. Urine dip negative. Urine test negative. Respiratory panel results pending 02/27/24 18:56 02/27/24 18:56 Labs: Lab Results 02/27/24 02/27/24 02/27/24 Range/Units 18:08 18:56 19:07 WBC 11.6 H (4.5-11.0) X10^3/uL RBC 4.61 (4.0-5.2) X10^6/uL Hgb 14.7 (12.0-16.0) g/dL Hct 43.7 (36-46) % MCV 94.8 (80-100) fL MCH 32.0 (26-34) PG MCHC 33.7 (30-36) % RDW 13.1 (11.6-14.8) % Plt Count 295 (150-400) X10^3/uL Neut % (Auto) 74.1 (50-75) % Lymph % (Auto) 18.6 L (25-40) % [place] % (Auto) 4.2 (3-14) % Eos % (Auto) 2.5 (2-4) % Baso % (Auto) 0.6 (0-2) % Neut # (Auto) 8600 H (6025-9976) /uL Lymph # (Auto) 2200 (7137-9006) /uL [place] # (Auto) 500 (0-900) /uL Eos # (Auto) 300 (0-450) /uL Baso # (Auto) 100 (0-100) /uL Sodium 136 L (137-145) mmol/L Potassium 3.7 (3.4-5.1) mmol/L Chloride 104 (98-107) mmol/L Carbon Dioxide 25 (22-32) mmol/L BUN 11 (7-17) mg/dL Creatinine 0.92 (0.52-1.04) mg/dL Estimated GFR > 60 (>60) mL/min BUN/Creatinine Ratio 12.0 (6-22) Glucose 98 (70-100) mg/dL Calcium 9.5 (8.4-10.2) mg/dL Total Bilirubin 0.4 (0.2-1.3) mg/dL AST 22 (14-36) IU/L ALT 20 (<35) IU/L Alkaline Phosphatase 71 (38-126) U/L Total Protein 6.9 (6.3-8.2) g/dL Albumin 4.5 (3.5-5.0) g/dL Globulin 2.4 (1.7-4.1) g/dL Albumin/Globulin Ratio 1.9 (1.0-2.8) Urine Color Yellow Urine Appearance Clear Urine pH 7.0 (4.5-8.0) Ur Specific [place] 1.010 (1.000-1.035) Urine Protein Negative (Negative) Urine Glucose (UA) Negative (Negative) g/dL Urine Ketones Negative (NEGATIVE) Urine Occult Blood Negative (Negative) Urine Nitrate Negative (Negative) Urine Bilirubin Negative (NEGATIVE) Urine Urobilinogen 0.2 (0.2) E.U./dL Ur Leukocyte Esterase Negative (NEGATIVE) Urine RBC None seen (0-5/HPF) Urine WBC 0-1/hpf (0-5/HPF) Ur Squamous Epith Cells 0-1 /hpf (0-5/HPF) Urine Bacteria None seen (None) Ur Culture Indicated? Cult not indicated Vol Urine Centrifuged 10ml (spun) Chlamy pneumoniae PCR Not detected (Not Detect) Adenovirus (PCR) Not detected (Not Detect) B. pertussis DNA (PCR) Not detected (Not Detect) B.parapertussis DNA PCR Not detected (Not Detecte) Coronavirus OC43 (PCR) Not detected (Not Detect) Coronavirus HKU1 (PCR) Not detected (Not Detect) Coronavirus 229E (PCR) Not detected (Not Detect) SARS-CoV-2 (PCR) Not detected (Not Detecte) Coronavirus NL63 (PCR) Not detected (Not Detect) Human Metapneumovir PCR Not detected (Not Detect) Influenza Type A (PCR) Not detected (Not Detect) Influenza Type B (PCR) Not detected (Not Detect) M. pneumoniae (PCR) Not detected (Not Detect) Parainfluenza 1 (PCR) Not detected (Not Detect) Parainfluenza 2 (PCR) Not detected (Not Detect) Parainfluenza 3 (PCR) Not detected (Not Detect) Parainfluenza 4 (PCR) Not detected (Not Detect) RSV (PCR) Not detected (Not Detect) Entero/Rhino (PCR) Not detected (Not Detect) Point of Care Testing Test Results Negative Urine Dip Bedside Urine Glucose Negative Bedside Urine Bilirubin - Negative Bedside Urine Ketone - Negative Urine Specific [place] 1.015 Bedside Urine Occult Blood - Negative Bedside Urine pH 7 Bedside Urine Protein - Negative Bedside Urine Urobilinogen - Negative Bedside Urine Nitrite - Negative Bedside Urine Leukocytes - Negative Esterase MDM Narrative Medical decision making narrative: 18-year-old with recent cough, lower abdominal discomfort recent couple of days, no tenderness on exam however, afebrile, sirs screen negative. Chest x-ray shows possible plate atelectasis without obvious infiltrate. Respiratory panel results still pending at this time. Trial of SVN albuterol. White blood cell count 36867 noted, hCG negative, urine dip negative, CMP negative. No tenderness on exam, hold advanced abdominopelvic imaging for now. Respiratory panel results still pending at this time. Respiratory panel negative Patient tolerated SVN albuterol well, we will give prescription for albuterol metered-dose inhaler to use at home, with spacer, 2 puffs 4 times daily for the next few days, encouraged to deep breathe and cough, to resolve the atelectasis mentioned on chest x-ray. Abdomen exam benign, lab workup unremarkable, no advanced abdominal imaging for now, patient agreeable. Advised to take Tylenol and or Motrin as needed for discomfort. Take inhaler use as above or shortness of breath symptoms. Recheck early next week if symptoms persist. Return precautions discussed. Discharged home, stable and improved Discharge Plan Departure Patient Disposition: Home Clinical Impression: Upper respiratory infection, Abdominal discomfort, Shortness of breath Activity Restrictions/Additional Instructions: Recent 1-1/2 weeks of cough, with some shortness of breath. Lungs clear on exam, no oxygen requirement, no fever on triage. Chest x-ray showed some small collapse atelectasis in segment, no pneumonia like changes. Trial of breathing treatment. Prescription for albuterol inhaler sent to your pharmacy. To use with spacer to maximize drug delivery. Use of inhaler with spacer 2 puffs 4 times daily for the next week or so. Should help open up aerated the lungs and help address shortness of breath symptoms. Respiratory panel results negative. Regarding your abdominal discomfort, you did not seem to have tenderness on exam, and screening laboratory studies including urinalysis reassuring, no imaging for now. Follow up abdominal discomfort with your regular doctor early next week if symptoms persist. Return to this/nearest emergency department for any change worsening symptoms or any concerns prior Prescriptions: New albuterol sulfate 90 mcg/actuation HFA aerosol inhaler 2 puff inhalation Q6H PRN (Reason: shortness of breath or wheezing) Qty: 8.5 0RF No Action testosterone cypionate 200 mg/mL oil 35 mg SUBCUT QWEEK aripiprazole [Abilify] 5 mg tablet 5 mg PO DAILY Qty: 30 11RF famotidine 40 mg tablet 40 mg PO DAILY Rx Instructions: 20mg 2 po daily sertraline [Zoloft] 100 mg tablet 50 mg PO DAILY prazosin 2 mg capsule 2 mg PO ONCE PM sulindac 200 mg tablet 200 mg PO DAILY lorazepam 1 mg tablet 1 mg PO BID PRN (Reason: anxiety attack) gabapentin 300 mg capsule 300 mg PO 3XD buspirone 10 mg tablet 10 mg PO 3XD lithium carbonate 300 mg capsule 300 mg PO 3XD trazodone 100 mg tablet 100 mg PO ONCE PM magnesium oxide 400 mg (241.3 mg magnesium) tablet 400 mg PO ONCE PM quetiapine 100 mg tablet 100 mg PO ONCE PM cyanocobalamin (vitamin B-12) 1,000 mcg tablet 1,000 mcg PO DAILY olanzapine 5 mg tablet 5 mg PO ONCE PM docusate sodium 100 mg capsule 100 mg PO DAILY cetirizine [Zyrtec] 10 mg Tablet 10 mg PO DAILY methocarbamol 500 mg tablet 500 mg PO TID PRN (Reason: muscle spasm) Qty: 30 0RF Referrals: Gabe Ayala DO [Primary Care Provider] - Stand Alone Forms: Patient Portal/API
[2024-02-27] MEDS: ALBUTEROL 2.5 MG/3 ML NEB (ADULT) INH (19:01)
[2024-02-27 19:04] LABS: Add Manual Diff / Slide Review NO; Basophils Absolute Auto 100 /uL (0-100); Basophils Percent Auto 0.6 % (0-2); Eosinophils Absolute Auto 300 /uL (0-450); Eosinophils Percent Auto 2.5 % (2-4); Hematocrit 43.7 % (36-46); Hemoglobin 14.7 g/dL (12.0-16.0); Lymphocytes Absolute Auto 2200 /uL (1100-4500); Lymphocytes Percent Auto 18.6 % (25-40); Mean Corpuscular HGB Conc 33.7 % (30-36); Mean Corpuscular Volume 94.8 fL (80-100); Monocytes Absolute Auto 500 /uL (0-900); Monocytes Percent Auto 4.2 % (3-14); Neutrophils Absolute Auto 8600 /uL (1500-7000); Neutrophils Percent Auto 74.1 % (50-75); Platelet Count 295 X10^3/uL (150-400); Red Blood Cell Count 4.61 X10^6/uL (4.0-5.2); Red Cell Distribution Width 13.1 % (11.6-14.8); White Blood Cell Count 11.6 X10^3/uL (4.5-11.0)
[2024-02-27 19:16] LABS: Appearance Urine UA CLEAR; Bilirubin Urine UA NEGATIVE (NEGATIVE); Color Urine UA YELLOW; Glucose Urine UA NEGATIVE (Negative); Ketones Urine UA NEGATIVE (NEGATIVE); Leukocyte Esterase Urine UA NEGATIVE (NEGATIVE); Nitrite Urine UA NEGATIVE (Negative); Occult Blood Urine UA NEGATIVE (Negative); Protein Urine UA NEGATIVE (Negative); Urobilinogen Urine UA 0.2 E.U./dL (0.2)
[2024-02-27 19:17] LABS: Alanine Aminotransferase 20 IU/L (<35); Albumin 4.5 g/dL (3.5-5.0); Albumin Globulin Ratio 1.9 (1.0-2.8); Alkaline Phosphatase 71 U/L (38-126); Aspartate Aminotransferase 22 IU/L (14-36); Bilirubin Total 0.4 mg/dL (0.2-1.3); Blood Urea Nitrogen 11 mg/dL (7-17); Calcium 9.5 mg/dL (8.4-10.2); Carbon Dioxide 25 mmol/L (22-32); Chloride 104 mmol/L (98-107); Estimated Glomerular Filt Rate > 60 mL/min (>60); Globulin 2.4 g/dL (1.7-4.1); Glucose 98 mg/dL (70-100); HEMOLYSIS < 15 (0-50); Potassium 3.7 mmol/L (3.4-5.1); Sodium 136 mmol/L (137-145); Total Protein 6.9 g/dL (6.3-8.2)
[2024-02-27 19:28] LABS: Bacteria Urine None Seen; Culture Indicated Urine Cult Not Indicated; RBC Urine None Seen (0-5/HPF); Squamous Epithelial Cell Urine 0-1 /HPF (0-5/HPF); Urine Volume 10mL (spun); WBC Urine 0-1/HPF (0-5/HPF)
[2024-02-27 20:08] LABS: Adenovirus Not Detected (Not Detect); B. parapertussis Not Detected (Not Detecte); Bordetella pertussis Not Detected (Not Detect); Chlamydophila pneumoniae Not Detected (Not Detect); Coronavirus 229E Not Detected (Not Detect); Coronavirus HKU1 Not Detected (Not Detect); Coronavirus NL 63 Not Detected (Not Detect); Coronavirus OC43 Not Detected (Not Detect); Human Metapneumovirus Not Detected (Not Detect); Human Rhinovirus/Enterovirus Not Detected (Not Detect); Influenza A Not Detected (Not Detect); Influenza B Not Detected (Not Detect); Mycoplasma pneumoniae Not Detected (Not Detect); Parainfluenza Virus 1 Not Detected (Not Detect); Parainfluenza Virus 2 Not Detected (Not Detect); Parainfluenza Virus 3 Not Detected (Not Detect); Parainfluenza Virus 4 Not Detected (Not Detect); Respiratory Syncytial Virus Not Detected (Not Detect); SARS- CoV-2 Not Detected (Not Detecte)
== END 2024-02-27 20:35 | disposition home or self-care (01) ==
PROVIDERS: Emergency Provider Emergency Medicine; PCP Family Medicine
DX: J06.9 Acute upper respiratory infection, unspecified (principal); R06.02 Shortness of breath; R10.30 Lower abdominal pain, unspecified; Z11.52 Encounter for screening for COVID-19
CPT/HCPCS: 36415; 71046; 80053; 81001; 81003; 81025; 85025; 87633; 94640; 99283; 99284; J7613

== ENCOUNTER → 2024-03-22 14:15 | Outpatient (CLI) | payer OTHER, MEDICAID, SELFPAY ==
[2024-03-22 16:11] LABS: Add Manual Diff / Slide Review NO; Basophils Absolute Auto 0 /uL (0-100); Basophils Percent Auto 0.3 % (0-2); Eosinophils Absolute Auto 100 /uL (0-450); Eosinophils Percent Auto 1.2 % (2-4); Hematocrit 47.2 % (36-46); Hemoglobin 15.8 g/dL (12.0-16.0); Lymphocytes Absolute Auto 2000 /uL (1100-4500); Lymphocytes Percent Auto 17.3 % (25-40); Mean Corpuscular HGB Conc 33.5 % (30-36); Mean Corpuscular Volume 95.7 fL (80-100); Monocytes Absolute Auto 600 /uL (0-900); Monocytes Percent Auto 4.8 % (3-14); Neutrophils Absolute Auto 8800 /uL (1500-7000); Neutrophils Percent Auto 76.4 % (50-75); Platelet Count 310 X10^3/uL (150-400); Red Blood Cell Count 4.93 X10^6/uL (4.0-5.2); White Blood Cell Count 11.6 X10^3/uL (4.5-11.0)
[2024-03-22 16:19] LABS: Hemoglobin A1C% w Est Avg Glu 4.9 % (4.0-6.0); Lithium < 0.2 mmol/L (0.6-1.2)
[2024-03-22 16:19] LABS: Alanine Aminotransferase 39 IU/L (<35); Albumin 4.8 g/dL (3.5-5.0); Alkaline Phosphatase 110 U/L (38-126); Aspartate Aminotransferase 44 IU/L (14-36); BUN Creatinine Ratio 12.3 (6-22); Bilirubin Total 1.2 mg/dL (0.2-1.3); Blood Urea Nitrogen 8 mg/dL (7-17); Carbon Dioxide 24 mmol/L (22-32); Chloride 99 mmol/L (98-107); Cholesterol 167 mg/dL (140-199); Estimated Glomerular Filt Rate > 60 mL/min (>60); Globulin 2.4 g/dL (1.7-4.1); Glucose 85 mg/dL (70-100); HDL Cholesterol 72 mg/dL (40-60); HEMOLYSIS < 15 (0-50); LDL Cholesterol Calculated 63 mg/dL (<100); Sodium 136 mmol/L (137-145); Total Protein 7.2 g/dL (6.3-8.2); Triglycerides 160 mg/dL (35-150)
[2024-03-22 16:52] LABS: Testosterone 155 ng/dL (5.71-77.0)
[2024-03-22 17:18] LABS: HIV 1 & 2 Ab/Ag 4th Gen Combo NEGATIVE (NEGATIVE); Hep C Virus Ab w/Reflex Quant NEGATIVE s/c (NEGATIVE)
== END ==
PROVIDERS: PCP Family Medicine; Referring Provider Naturopath; Visit Provider Naturopath
DX: F64.9 Gender identity disorder, unspecified (principal); F10.20 Alcohol dependence, uncomplicated; F31.9 Bipolar disorder, unspecified; R63.5 Abnormal weight gain; F90.9 Attention-deficit hyperactivity disorder, unspecified type; F43.10 Post-traumatic stress disorder, unspecified; F32.9 Major depressive disorder, single episode, unspecified
CPT/HCPCS: 36415; 80053; 80061; 80178; 83036; 84403; 85025; 86803; 87389

== ENCOUNTER 2024-03-29 22:07 | Emergency (ER) | payer OTHER, MEDICAID, SELFPAY ==
[2024-03-29 22:10] VITALS: BP 126/77; PULSE 88; RESP 18; TEMP 36.1; O2SAT 98; BMI 28.3
[2024-03-29 22:52] LABS: Ur Creatinine Normal (Normal); Ur Specific Gravity Normal (Normal); Urine Amphetamines Negative (Negative); Urine Barbiturates Negative (Negative); Urine Benzodiazepines Negative (Negative); Urine Cocaine Negative (Negative); Urine MDMA Negative (Negative); Urine Methadone Negative (Negative); Urine Methamphetamines Negative (Negative); Urine Opiates Negative (Negative); Urine Oxycodone Negative (Negative); Urine Phencyclidine Negative (Negative); Urine THC Positive (Negative); Urine Tricyclic Antidepressant Negative (Negative); Urine pH Normal (Normal)
[2024-03-29 23:06] LABS: Add Manual Diff / Slide Review NO; Basophils Absolute Auto 100 /uL (0-100); Basophils Percent Auto 0.8 % (0-2); Eosinophils Absolute Auto 200 /uL (0-450); Eosinophils Percent Auto 1.9 % (2-4); Hematocrit 43.7 % (36-46); Lymphocytes Absolute Auto 2400 /uL (1100-4500); Lymphocytes Percent Auto 28.9 % (25-40); Mean Corpuscular HGB Conc 34.2 % (30-36); Mean Corpuscular Hemoglobin 31.9 PG (26-34); Mean Corpuscular Volume 93.4 fL (80-100); Monocytes Absolute Auto 500 /uL (0-900); Monocytes Percent Auto 6.3 % (3-14); Neutrophils Absolute Auto 5100 /uL (1500-7000); Neutrophils Percent Auto 62.1 % (50-75); Platelet Count 268 X10^3/uL (150-400); Red Blood Cell Count 4.68 X10^6/uL (4.0-5.2); Red Cell Distribution Width 12.8 % (11.6-14.8); White Blood Cell Count 8.2 X10^3/uL (4.5-11.0)
[2024-03-29 23:11] LABS: Lithium < 0.2 mmol/L (0.6-1.2)
[2024-03-29 23:15] LABS: Acetaminophen < 10 ug/mL (10-30); Alanine Aminotransferase 22 IU/L (<35); Albumin 4.8 g/dL (3.5-5.0); Albumin Globulin Ratio 1.9 (1.0-2.8); Alkaline Phosphatase 72 U/L (38-126); Aspartate Aminotransferase 29 IU/L (14-36); BUN Creatinine Ratio 15.4 (6-22); Bilirubin Total 0.5 mg/dL (0.2-1.3); Blood Urea Nitrogen 10 mg/dL (7-17); Carbon Dioxide 21 mmol/L (22-32); Chloride 108 mmol/L (98-107); Estimated Glomerular Filt Rate > 60 mL/min (>60); Ethanol (ETOH) 135 mg/dL; Globulin 2.5 g/dL (1.7-4.1); Glucose 89 mg/dL (70-100); HEMOLYSIS 15 (0-50); Salicylate < 1.0 mg/dL (<20); Sodium 141 mmol/L (137-145); Total Protein 7.3 g/dL (6.3-8.2)
--- NOTE | 2024-03-29 23:59 | ED.PSYCH ---
HPI - Psych General Chief Complaint: Psychiatric Symptoms Stated Complaint: Alcohol Withdrawal, Mental Health Issues Time Seen by Provider: 03/29/24 23:59 Source: patient, RN notes reviewed and old records reviewed Mode of arrival: Ambulatory Limitations: no limitations History of Present Illness HPI Narrative: 18-year-old female to male transgender individual who goes by pronouns he/him with history of bipolar disease, chronic alcohol use and tobacco use, general anxiety and ADHD, PTSD. Who presents with complaint of suicidal ideation patient did have a plan to overdose. They have had thoughts of cutting himself as well. They state that there was an issue with the medications being sent to the pharmacy about 3 weeks whenever able to fill them and have had increasing symptoms since. They has been drinking about 7 shots of alcohol daily last drink was about 2200 this evening. Patient states they are feeling anxious but no other current withdrawal symptoms. They state that they has been using marijuana, alcohol since they were 13. They state they do smoke, drink about 7 shots daily for a long period of time. Recreational drugs include marijuana and inhalants denies any IV or injection drugs. Patient was taking Abilify/lithium/of the left and lorazepam but has not had them in the past 3 weeks. Patient is seeking inpatient placement and assistance. Related Data Home Medications Medication Instructions Recorded Confirmed testosterone cypionate 200 mg/mL 35 mg SUBCUT QWEEK 11/11/23 03/15/24 intramuscular oil cetirizine 10 mg tablet (Zyrtec) 10 mg PO DAILY 01/18/24 03/15/24 buspirone 10 mg tablet 10 mg PO 3XD anxiety 02/09/24 03/15/24 cyanocobalamin (vitamin B-12) 1,000 mcg PO DAILY 02/09/24 03/15/24 1,000 mcg tablet gabapentin 300 mg capsule 300 mg PO 3XD 02/09/24 03/15/24 lithium carbonate 300 mg capsule 300 mg PO 3XD depressive disorder 02/09/24 03/15/24 lorazepam 1 mg tablet 1 mg PO BID PRN anxiety attack 02/09/24 03/15/24 magnesium oxide 400 mg (241.3 mg 400 mg PO ONCE PM 02/09/24 03/15/24 magnesium) tablet olanzapine 5 mg tablet 5 mg PO ONCE PM psychosis 02/09/24 03/15/24 prazosin 2 mg capsule 2 mg PO ONCE PM nightmares 02/09/24 03/15/24 quetiapine 100 mg tablet 100 mg PO ONCE PM depressive 02/09/24 03/15/24 disorder sulindac 200 mg tablet 200 mg PO DAILY chronic pain 02/09/24 03/15/24 trazodone 100 mg tablet 100 mg PO ONCE PM insomnia 02/09/24 03/15/24 docusate sodium 100 mg capsule 100 mg PO DAILY 02/10/24 03/15/24 famotidine 40 mg tablet 40 mg PO DAILY 02/10/24 03/15/24 sertraline 100 mg tablet (Zoloft) 50 mg PO DAILY 02/10/24 03/15/24 Previous Rx's Medication Instructions Recorded aripiprazole 5 mg tablet (Abilify) 5 mg PO DAILY #30 tabs 12/08/23 methocarbamol 500 mg tablet 500 mg PO TID PRN muscle spasm #30 01/12/24 tabs albuterol sulfate 90 mcg/actuation 2 puff inhalation Q6H PRN 02/27/24 aerosol inhaler shortness of breath or wheezing #8.5 grams dextroamphetamine-amphetamine ER 30 mg PO DAILY #30 caps 03/15/24 30 mg 24hr capsule,extend release (Adderall XR) dextroamphetamine-amphetamine ER 30 mg PO DAILY 30 days #30 caps 03/15/24 30 mg 24hr capsule,extend release (Adderall XR) dextroamphetamine-amphetamine ER 30 mg PO DAILY 30 days #30 caps 03/15/24 30 mg 24hr capsule,extend release (Adderall XR) nicotine 21 mg/24 hr daily 1 patch transdermal DAILY #28 ea 03/23/24 transdermal patch Allergies Allergy/AdvReac Type Severity Reaction Status Date / Time [place] And Derivatives Allergy Unknown mouth Verified 03/15/24 10:18 sores, nausea Review of Systems Review of Systems ROS Unobtainable: All systems reviewed & are unremarkable except as noted in HPI and below Patient History Medical History Marijuana dependence Vapes nicotine containing substance Alcohol addiction Bipolar 1 disorder Gender dysphoria Bulimia (~2020) History of bipolar disorder (~2017) Anorexia nervosa (~2019) Migraines (~2018) Fractures Chronic back pain (~2014) History of recurrent ear infection (~2014) Painful menstrual periods (~2017) History of self-harm ADHD (~2009) CHAMP (generalized anxiety disorder) (~2009) PTSD (post-traumatic stress disorder) (~2008) Major depression, single episode Family History Father Mental health problem Anxiety PTSD (post-traumatic stress disorder) Depression Substance use Mother Mental health problem Gastroparesis Gastritis History of bipolar disorder Depression History of anorexia nervosa History of bulimia PTSD (post-traumatic stress disorder) Anxiety Sister Mental health problem Autism PTSD (post-traumatic stress disorder) Anxiety ADHD Sister Mental health problem ADHD Grandmother Thyroid disorder History of anorexia nervosa Social History household members: friend(s) Smoking Status: Current every day smoker alcohol intake: former Smoking Status: Current every day smoker tobacco type: vaping alcohol intake frequency: 3 or more drinks per day Alcohol type: hard liquor Substance Use Type: marijuana, inhalants and other Exam Narrative Exam Narrative: GENERAL: Alert and oriented x three, mild distress HEENT: Head normocephalic, atraumatic, EOMI, pupils reactive, face symmetric, moist mucous membranes NECK: Supple, full range of motion CARDIOVASCULAR: Regular rate and rhythm without murmurs, rubs or gallops. RESPIRATORY: Breath sounds equal bilaterally, no wheezes rales or rhonchi. ABDOMEN: Soft, nontender. Normoactive bowel sounds all 4 quadrants. No guarding or rebound, rigidity, no mass : No CVA tenderness EXTREMITIES: Normal range of motion, no clubbing or edema. Neurovascularly intact NEUROLOGICAL: Cranial nerves II through XII grossly intact. Moving all extremities SKIN: Warm, dry, no petechiae, no rashes or lesions. PSYCH: Positive SI, no HI, no hallucinations reported. Initial Vital Signs Initial Vital Signs: Vital Signs Temperature 96.9 F L 03/29/24 22:10 Pulse Rate 88 03/29/24 22:10 Respiratory Rate 18 03/29/24 22:10 Blood Pressure 126/77 03/29/24 22:10 Pulse Oximetry 98 03/29/24 22:10 Oxygen Delivery Method Room Air 03/29/24 22:10 Course Orders Ordered: ED Orders 03/29/24 22:25 Consult to CREAM SEPARATOR OPERATOR - Drawing In Machine Tender Helper Stat 03/29/24 22:45 Acetaminophen Stat Complete Blood Count AUTO DIFF Stat Comprehensive Metabolic Panel Stat Ethanol (ETOH) Stat Free T4, Direct Thyroxine Stat [place] Stat Salicylate Stat Thyroid Stimulating Hormone Stat Urine Drug Screen, Rapid Stat 03/29/24 23:40 COVID19 -Nasal RAPID Stat Discontinued Medications Phenobarbital (Phenobarbital 65 Mg/Ml Vial) 260 mg IV NOW ONE Stop: 03/30/24 00:07 Last Admin: 03/30/24 00:48 Dose: 260 mg Documented By: LING Vital Signs Vital signs: Vital Signs - 8 hr 03/29/24 22:10 03/30/24 00:16 03/30/24 01:00 Temperature 96.9 F L 97.4 F L Pulse Rate 88 88 87 Respiratory Rate 18 16 18 Blood Pressure 126/77 123/58 L 112/53 L Pulse Oximetry 98 94 99 Oxygen Delivery Method Room Air Room Air Room Air 03/30/24 01:22 03/30/24 01:30 03/30/24 01:30 Temperature Pulse Rate 83 88 Respiratory Rate Blood Pressure 103/53 L Pulse Oximetry 95 94 Oxygen Delivery Method 03/30/24 01:46 03/30/24 01:46 03/30/24 02:00 Temperature Pulse Rate 92 H Respiratory Rate Blood Pressure 104/56 L 108/55 L Pulse Oximetry 96 Oxygen Delivery Method 03/30/24 02:00 03/30/24 02:30 03/30/24 02:30 Temperature Pulse Rate 89 91 H Respiratory Rate Blood Pressure 106/58 L Pulse Oximetry 91 96 Oxygen Delivery Method 03/30/24 03:00 03/30/24 03:00 03/30/24 03:30 Temperature 98.5 F Pulse Rate 93 H 86 Respiratory Rate Blood Pressure 104/52 L Pulse Oximetry 93 95 Oxygen Delivery Method 03/30/24 03:30 03/30/24 04:00 03/30/24 04:00 Temperature Pulse Rate 92 H Respiratory Rate Blood Pressure 107/52 L 104/59 L Pulse Oximetry 94 Oxygen Delivery Method 03/30/24 04:30 03/30/24 04:30 03/30/24 04:53 Temperature Pulse Rate 81 Respiratory Rate Blood Pressure 104/56 L 100/59 L Pulse Oximetry 97 Oxygen Delivery Method 03/30/24 04:53 Temperature 98.5 F Pulse Rate 86 Respiratory Rate Blood Pressure Pulse Oximetry [address] [facility] - Psych Lab Data 03/29/24 22:45 03/29/24 22:45 Labs: Lab Results 03/29/24 03/29/24 Range/Units 22:45 23:40 WBC 8.2 (4.5-11.0) X10^3/uL RBC 4.68 (4.0-5.2) X10^6/uL Hgb 15.0 (12.0-16.0) g/dL Hct 43.7 (36-46) % MCV 93.4 (80-100) fL MCH 31.9 (26-34) PG MCHC 34.2 (30-36) % RDW 12.8 (11.6-14.8) % Plt Count 268 (150-400) X10^3/uL Neut % (Auto) 62.1 (50-75) % Lymph % (Auto) 28.9 (25-40) % [place] % (Auto) 6.3 (3-14) % Eos % (Auto) 1.9 L (2-4) % Baso % (Auto) 0.8 (0-2) % Neut # (Auto) 5100 (4764-1849) /uL Lymph # (Auto) 2400 (5649-9468) /uL [place] # (Auto) 500 (0-900) /uL Eos # (Auto) 200 (0-450) /uL Baso # (Auto) 100 (0-100) /uL Sodium 141 (137-145) mmol/L Potassium 4.0 (3.4-5.1) mmol/L Chloride 108 H (98-107) mmol/L Carbon Dioxide 21 L (22-32) mmol/L BUN 10 (7-17) mg/dL Creatinine 0.65 (0.52-1.04) mg/dL Estimated GFR > 60 (>60) mL/min BUN/Creatinine Ratio 15.4 (6-22) Glucose 89 (70-100) mg/dL Calcium 9.0 (8.4-10.2) mg/dL Total Bilirubin 0.5 (0.2-1.3) mg/dL AST 29 (14-36) IU/L ALT 22 (<35) IU/L Alkaline Phosphatase 72 (38-126) U/L Total Protein 7.3 (6.3-8.2) g/dL Albumin 4.8 (3.5-5.0) g/dL Globulin 2.5 (1.7-4.1) g/dL Albumin/Globulin Ratio 1.9 (1.0-2.8) TSH 3.60 (0.47-4.68) uIU/mL Free T4 0.90 (0.78-2.19) ng/dL Salicylates < 1.0 (<20) mg/dL U Opiates 300ng/mL cut Negative (Negative) Ur Oxycodone Screen Negative (Negative) Urine Methadone Screen Negative (Negative) Acetaminophen < 10 (10-30) ug/mL Ur Barbiturates Screen Negative (Negative) U Tricyclic Antidepress Negative (Negative) Ur Phencyclidine Scrn Negative (Negative) Ur Amphetamines Screen Negative (Negative) U Methamphetamines Scrn Negative (Negative) Ur MDMA Scrn (Ecstasy) Negative (Negative) U Benzodiazepines Scrn Negative (Negative) [place] < 0.2 L (0.6-1.2) mmol/L Urine Cocaine Screen Negative (Negative) U Marijuana (THC) Screen Positive H (Negative) Urine pH Normal (Normal) Urine Specific [place] Normal (Normal) Ethyl Alcohol 135 H ( - 10) mg/dL Ur Creatinine Normal (Normal) SARS-CoV-2 (PCR) Negative (Negative) Point of Care Testing Test Results Negative Urine Dip Bedside Urine Glucose Negative Bedside Urine Bilirubin - Negative Bedside Urine Ketone - Negative Urine Specific [place] 1.015 Bedside Urine Occult Blood - Negative Bedside Urine pH 6.5 Bedside Urine Protein - Negative Bedside Urine Urobilinogen - Negative Bedside Urine Nitrite - Negative Bedside Urine Leukocytes - Negative Esterase MDM Narrative Medical decision making narrative: 18-year-old female to male transgender individual goes by pronouns he/him presents complaining of being off the Abilify/lithium Zoloft and lorazepam for 3 weeks due to iron prescriptions patient states he had been drinking about 7 shots a day and feeling suicidal is seeking inpatient treatment. Last drink was at 2200. Labs show white count 8.2 hemoglobin of 15 platelets of 268. Chemistry shows sodium 141 potassium of 4 chloride of 108 CO2 of 21 BUN 10 creatinine 0.65, glucose 89 LFTs are negative TSH is 3.6 with a free T4 0.9. Tylenol, salicylates and are negative, ETOH is 135 UDS is positive for marijuana. [place] is less than 0.2 COVID swab is negative Point of care urine is negative urine is negative Patient's vital signs overall appropriate no hypotension or tachycardia thus far. Patient was given a dose of phenobarbital. Patient is medically cleared. Patient chart being evaluated for inpatient stay. Awaiting callback. Patient accepted by ALISHA Dudley at [place]. Transport being arranged. Patient agreeable to transfer. Discharge Plan Departure Patient Disposition: Xfer [facility] Clinical Impression: Suicidal ideation Prescriptions: No Action nicotine 21 mg/24 hr patch 24 hour 1 patch transdermal DAILY Qty: 28 1RF testosterone cypionate 200 mg/mL oil 35 mg SUBCUT QWEEK aripiprazole [Abilify] 5 mg tablet 5 mg PO DAILY Qty: 30 11RF famotidine 40 mg tablet 40 mg PO DAILY Rx Instructions: 20mg 2 po daily sertraline [Zoloft] 100 mg tablet 50 mg PO DAILY dextroamphetamine-amphetamine [Adderall XR] 30 mg capsule,extended release 24hr 30 mg PO DAILY Qty: 30 0RF Rx Instructions: rx 1/3 dextroamphetamine-amphetamine [Adderall XR] 30 mg capsule,extended release 24hr 30 mg PO DAILY 30 Days Qty: 30 0RF Rx Instructions: rx 2/3 dextroamphetamine-amphetamine [Adderall XR] 30 mg capsule,extended release 24hr 30 mg PO DAILY 30 Days Qty: 30 0RF Rx Instructions: rx 3/3 prazosin 2 mg capsule 2 mg PO ONCE PM sulindac 200 mg tablet 200 mg PO DAILY lorazepam 1 mg tablet 1 mg PO BID PRN (Reason: anxiety attack) gabapentin 300 mg capsule 300 mg PO 3XD buspirone 10 mg tablet 10 mg PO 3XD lithium carbonate 300 mg capsule 300 mg PO 3XD trazodone 100 mg tablet 100 mg PO ONCE PM magnesium oxide 400 mg (241.3 mg magnesium) tablet 400 mg PO ONCE PM quetiapine 100 mg tablet 100 mg PO ONCE PM cyanocobalamin (vitamin B-12) 1,000 mcg tablet 1,000 mcg PO DAILY olanzapine 5 mg tablet 5 mg PO ONCE PM Hold Instructions: Home Medication placed on hold at Doctor's office docusate sodium 100 mg capsule 100 mg PO DAILY cetirizine [Zyrtec] 10 mg Tablet 10 mg PO DAILY albuterol sulfate 90 mcg/actuation HFA aerosol inhaler 2 puff inhalation Q6H PRN (Reason: shortness of breath or wheezing) Qty: 8.5 0RF methocarbamol 500 mg tablet 500 mg PO TID PRN (Reason: muscle spasm) Qty: 30 0RF Referrals: Gabe Ayala DO [Primary Care Provider] -
[2024-03-30] VITALS (12 sets, daily range): BP systolic 100–123; BP diastolic 52–59; PULSE 81–93; RESP 16–18; TEMP 36.3–36.9; O2SAT 91–99
[2024-03-30 00:14] LABS: COVID19 -Nasal RAPID Negative (Negative)
[2024-03-30] MEDS: PHENobarbital 65 MG/ML VIAL 260 MG IV (00:48)
--- NOTE | 2024-03-30 01:15 | PC.NURSE ---
Intake packet sent to [facility] for admission review. Intake stated they would have the Clinician review packet and contact after
== END 2024-03-30 05:11 ==
PROVIDERS: Emergency Provider Emergency Medicine; PCP Family Medicine
DX: R45.851 Suicidal ideations (principal); Z79.899 Other long term (current) drug therapy; F12.20 Cannabis dependence, uncomplicated
CPT/HCPCS: 36415; 80053; 80178; 80305; 80320; 80329; 81003; 81025; 84439; 84443; 85025; 87635; 96374; 99285; G0480; J2560

== ENCOUNTER → 2024-04-26 17:09 | Outpatient (CLI) | payer OTHER, SELFPAY ==
[2024-04-26 18:29] LABS: Hemoglobin A1C% w Est Avg Glu 4.9 % (4.0-6.0)
[2024-04-26 19:28] LABS: Lithium 0.5 mmol/L (0.6-1.2)
[2024-04-26 20:20] LABS: Vitamin B12 289 pg/mL (239-931)
== END ==
LOC: LAB 17:10
PROVIDERS: Student in an Organized Health Care Education/Training Program; PCP Family Medicine; Referring Provider Family Medicine; Visit Provider Family Medicine
DX: Z51.81 Encounter for therapeutic drug level monitoring (principal); F31.9 Bipolar disorder, unspecified; F90.9 Attention-deficit hyperactivity disorder, unspecified type; F43.10 Post-traumatic stress disorder, unspecified; F32.9 Major depressive disorder, single episode, unspecified
CPT/HCPCS: 36415; 80178; 82607; 83036

== ENCOUNTER 2024-05-05 02:13 | Emergency (ER) | payer OTHER, SELFPAY ==
[2024-05-05 02:23] VITALS: BP 134/75; PULSE 84; RESP 15; TEMP 37.2; O2SAT 98
--- NOTE | 2024-05-05 03:50 | PC.NURSE ---
Started sitting for patient at 0345. Will continue to monitor.
--- NOTE | 2024-05-05 05:25 | PC.NURSE ---
This SACK KEEPER offered paper scrubs to change into and acquired urine sample. Pt gave belongings and this SACK KEEPER stored belongings bag away. Pt also gave a backpack that they hope their friend could metal pickling equipment operator sometime later today. Will continue to monitor.
[2024-05-05 05:59] LABS: Urine Amphetamines Negative (Negative); Urine Barbiturates Negative (Negative); Urine Benzodiazepines Negative (Negative); Urine Cocaine Negative (Negative); Urine MDMA Negative (Negative); Urine Methadone Negative (Negative); Urine Methamphetamines Negative (Negative); Urine Opiates Positive (Negative); Urine Oxycodone Negative (Negative); Urine Phencyclidine Negative (Negative); Urine THC Positive (Negative); Urine Tricyclic Antidepressant Negative (Negative)
[2024-05-05 06:50] LABS: Add Manual Diff / Slide Review NO; Basophils Absolute Auto 100 /uL (0-100); Basophils Percent Auto 0.6 % (0-2); Eosinophils Absolute Auto 200 /uL (0-450); Eosinophils Percent Auto 2.3 % (2-4); Hematocrit 42.9 % (36-46); Hemoglobin 14.5 g/dL (12.0-16.0); Lymphocytes Absolute Auto 3300 /uL (1100-4500); Lymphocytes Percent Auto 32.5 % (25-40); Mean Corpuscular HGB Conc 33.7 % (30-36); Mean Corpuscular Hemoglobin 31.1 PG (26-34); Mean Corpuscular Volume 92.2 fL (80-100); Monocytes Absolute Auto 700 /uL (0-900); Monocytes Percent Auto 6.5 % (3-14); Neutrophils Absolute Auto 5900 /uL (1500-7000); Neutrophils Percent Auto 58.1 % (50-75); Platelet Count 232 X10^3/uL (150-400); Red Blood Cell Count 4.65 X10^6/uL (4.0-5.2); Red Cell Distribution Width 13.3 % (11.6-14.8); White Blood Cell Count 10.1 X10^3/uL (4.5-11.0)
--- NOTE | 2024-05-05 06:53 | ED_ITS ---
HPI - Psych <Yessi Gutierres, DO - Last Filed: 05/05/24 18:33> General Chief Complaint: Psychiatric Symptoms Stated Complaint: SI, MANIC Time Seen by Provider: 05/05/24 05:12 Source: patient Mode of arrival: Ambulatory Limitations: no limitations History of Present Illness HPI Narrative: 18-year-old female to male transgender with a history of bipolar disorder presents stating I do not feel safe with myself I do not think my medication is working at all. Feeling manic. Patient reports delusions, paranoia. Patient does state they had about 5 shots 3 oz of alcohol earlier. Patient denies any intent at this time. Related Data Home Medications Medication Instructions Recorded Confirmed testosterone cypionate 200 mg/mL 35 mg SUBCUT QWEEK 11/11/23 04/19/24 intramuscular oil buspirone 10 mg tablet 10 mg PO 3XD anxiety 02/09/24 04/19/24 lithium carbonate 300 mg capsule 300 mg PO 3XD depressive disorder 02/09/24 04/19/24 lorazepam 1 mg tablet 1 mg PO BID PRN anxiety attack 02/09/24 04/19/24 prazosin 2 mg capsule 2 mg PO ONCE PM nightmares 02/09/24 04/19/24 sulindac 200 mg tablet 200 mg PO DAILY chronic pain 02/09/24 04/19/24 docusate sodium 100 mg capsule 100 mg PO DAILY 02/10/24 04/19/24 bupropion HCl 150 mg 24 hr tablet, 150 mg PO QAM 04/19/24 04/19/24 extended release trazodone 100 mg tablet 150 mg PO ONCE PM insomnia 04/19/24 04/19/24 Previous Rx's Medication Instructions Recorded aripiprazole 5 mg tablet (Abilify) 5 mg PO DAILY #30 tabs 12/08/23 methocarbamol 500 mg tablet 500 mg PO TID PRN muscle spasm #30 01/12/24 tabs albuterol sulfate 90 mcg/actuation 2 puff inhalation Q6H PRN 02/27/24 aerosol inhaler shortness of breath or wheezing #8.5 grams dextroamphetamine-amphetamine ER 30 mg PO DAILY #30 caps 03/15/24 30 mg 24hr capsule,extend release (Adderall XR) dextroamphetamine-amphetamine ER 30 mg PO DAILY 30 days #30 caps 03/15/24 30 mg 24hr capsule,extend release (Adderall XR) dextroamphetamine-amphetamine ER 30 mg PO DAILY 30 days #30 caps 03/15/24 30 mg 24hr capsule,extend release (Adderall XR) Allergies Allergy/AdvReac Type Severity Reaction Status Date / Time [place] And Derivatives Allergy Unknown mouth Verified 03/15/24 10:18 sores, nausea nicotine patch AdvReac Mild Rash Uncoded 04/19/24 13:39 Review of Systems <Yessi Gutierres DO - Last Filed: 05/05/24 18:33> Review of Systems ROS Unobtainable: All systems reviewed & are unremarkable except as noted in HPI and below Patient History <Yessi Gutierres DO - Last Filed: 05/05/24 18:33> Medical History Marijuana dependence Vapes nicotine containing substance Alcohol addiction Bipolar 1 disorder Gender dysphoria Bulimia (~2020) History of bipolar disorder (~2017) Anorexia nervosa (~2019) Migraines (~2018) Fractures Chronic back pain (~2014) History of recurrent ear infection (~2014) Painful menstrual periods (~2017) History of self-harm ADHD (~2009) CHAMP (generalized anxiety disorder) (~2009) PTSD (post-traumatic stress disorder) (~2008) Major depression, single episode Family History Father Mental health problem Anxiety PTSD (post-traumatic stress disorder) Depression Substance use Mother Mental health problem Gastroparesis Gastritis History of bipolar disorder Depression History of anorexia nervosa History of bulimia PTSD (post-traumatic stress disorder) Anxiety Sister Mental health problem Autism PTSD (post-traumatic stress disorder) Anxiety ADHD Sister Mental health problem ADHD Grandmother Thyroid disorder History of anorexia nervosa Social History household members: friend(s) Smoking Status: Current every day smoker alcohol intake: former Smoking Status: Current every day smoker tobacco type: vaping alcohol intake frequency: 3 or more drinks per day Alcohol type: hard liquor Exam <Yessi Gutierres DO - Last Filed: 05/05/24 18:33> Narrative Exam Narrative: GENERAL: Alert and oriented x three, mild distress HEENT: Head normocephalic, atraumatic, EOMI, pupils reactive, face symmetric, moist mucous membranes NECK: Supple, full range of motion CARDIOVASCULAR: Regular rate and rhythm without murmurs, rubs or gallops. RESPIRATORY: Breath sounds equal bilaterally, no wheezes rales or rhonchi. ABDOMEN: Soft, nontender. Normoactive bowel sounds all 4 quadrants. No guarding or rebound, rigidity, no mass EXTREMITIES: Normal range of motion. NEUROLOGICAL: Cranial nerves II through XII grossly intact. Moving all extremities SKIN: Warm, dry Initial Vital Signs Initial Vital Signs: Vital Signs Temperature 99.0 F 05/05/24 02:23 Pulse Rate 84 05/05/24 02:23 Respiratory Rate 15 05/05/24 02:23 Blood Pressure 134/75 05/05/24 02:23 Pulse Oximetry 98 05/05/24 02:23 Oxygen Delivery Method Room Air 05/05/24 02:23 <López Hernandez DO - Last Filed: 05/05/24 13:28> Initial Vital Signs Initial Vital Signs: Vital Signs Temperature 99.0 F 05/05/24 02:23 Pulse Rate 84 05/05/24 02:23 Respiratory Rate 15 05/05/24 02:23 Blood Pressure 134/75 05/05/24 02:23 Pulse Oximetry 98 05/05/24 02:23 Oxygen Delivery Method Room Air 05/05/24 02:23 Course <Yessi Gutierres DO - Last Filed: 05/05/24 18:33> Orders Ordered: Discontinued Medications Acetaminophen (Acetaminophen 325 Mg Tablet) 650 mg PO NOW ONE Stop: 05/05/24 10:09 Last Admin: 05/05/24 10:24 Dose: 650 mg Documented By: CLAIRE Vital Signs Vital signs: Vital Signs - 8 hr 05/05/24 14:06 Temperature 98.5 F Pulse Rate 63 Respiratory Rate 19 Blood Pressure 115/53 L Pulse Oximetry 99 Oxygen Delivery Method Room Air <López Hernandez DO - Last Filed: 05/05/24 13:28> Orders Ordered: Discontinued Medications Acetaminophen (Acetaminophen 325 Mg Tablet) 650 mg PO NOW ONE Stop: 05/05/24 10:09 Last Admin: 05/05/24 10:24 Dose: 650 mg Documented By: CLAIRE Vital Signs Vital signs: Vital Signs - 8 hr 05/05/24 14:06 Temperature 98.5 F Pulse Rate 63 Respiratory Rate 19 Blood Pressure 115/53 L Pulse Oximetry 99 Oxygen Delivery Method Room Air MDM - Psych <Yessi Gutierres, DO - Last Filed: 05/05/24 18:33> Lab Data 05/05/24 06:40 05/05/24 05:12 Labs: Lab Results 05/05/24 05/05/24 05/05/24 Range/Units 05:12 05:37 06:40 WBC 10.1 (4.5-11.0) X10^3/uL RBC 4.65 (4.0-5.2) X10^6/uL Hgb 14.5 (12.0-16.0) g/dL Hct 42.9 (36-46) % MCV 92.2 (80-100) fL MCH 31.1 (26-34) PG MCHC 33.7 (30-36) % RDW 13.3 (11.6-14.8) % Plt Count 232 (150-400) X10^3/uL Neut % (Auto) 58.1 (50-75) % Lymph % (Auto) 32.5 (25-40) % Divide % (Auto) 6.5 (3-14) % Eos % (Auto) 2.3 (2-4) % Baso % (Auto) 0.6 (0-2) % Neut # (Auto) 5900 (8898-5326) /uL Lymph # (Auto) 3300 (8512-0359) /uL Divide # (Auto) 700 (0-900) /uL Eos # (Auto) 200 (0-450) /uL Baso # (Auto) 100 (0-100) /uL Sodium 137 (137-145) mmol/L Potassium 3.6 (3.4-5.1) mmol/L Chloride 107 (98-107) mmol/L Carbon Dioxide 24 (22-32) mmol/L BUN 11 (7-17) mg/dL Creatinine 0.94 (0.52-1.04) mg/dL Estimated GFR > 60 (>60) mL/min BUN/Creatinine Ratio 11.7 (6-22) Glucose 97 (70-100) mg/dL Calcium 8.9 (8.4-10.2) mg/dL Total Bilirubin 0.3 (0.2-1.3) mg/dL AST 23 (14-36) IU/L ALT 17 (<35) IU/L Alkaline Phosphatase 58 (38-126) U/L Total Protein 6.5 (6.3-8.2) g/dL Albumin 4.1 (3.5-5.0) g/dL Globulin 2.4 (1.7-4.1) g/dL Albumin/Globulin Ratio 1.7 (1.0-2.8) U Opiates 300ng/mL cut Positive H (Negative) Ur Oxycodone Screen Negative (Negative) Urine Methadone Screen Negative (Negative) Ur Barbiturates Screen Negative (Negative) U Tricyclic Antidepress Negative (Negative) Ur Phencyclidine Scrn Negative (Negative) Ur Amphetamines Screen Negative (Negative) U Methamphetamines Scrn Negative (Negative) Ur MDMA Scrn (Ecstasy) Negative (Negative) U Benzodiazepines Scrn Negative (Negative) Urine Cocaine Screen Negative (Negative) U Marijuana (THC) Screen Positive H (Negative) Urine pH TNP Urine Specific Superior TNP Ethyl Alcohol < 10 ( - 10) mg/dL Ur Creatinine TNP SARS-CoV-2 (PCR) Negative (Negative) Point of Care Testing Test Results Negative Urine Dip Bedside Urine Glucose Negative Bedside Urine Bilirubin - Negative Bedside Urine Ketone - Negative Urine Specific Superior 1.020 Bedside Urine Occult Blood - Negative Bedside Urine pH 6.0 Bedside Urine Protein - Negative Bedside Urine Urobilinogen - Negative Bedside Urine Nitrite - Negative Bedside Urine Leukocytes - Negative Esterase <López Hernandez DO - Last Filed: 05/05/24 13:28> Medical Records Attestation: I reviewed the patient's medical records. Lab Data Attestation: I reviewed the patient's lab results. Labs: Lab Results 05/05/24 05/05/24 05/05/24 Range/Units 05:12 05:37 06:40 WBC 10.1 (4.5-11.0) X10^3/uL RBC 4.65 (4.0-5.2) X10^6/uL Hgb 14.5 (12.0-16.0) g/dL Hct 42.9 (36-46) % MCV 92.2 (80-100) fL MCH 31.1 (26-34) PG MCHC 33.7 (30-36) % RDW 13.3 (11.6-14.8) % Plt Count 232 (150-400) X10^3/uL Neut % (Auto) 58.1 (50-75) % Lymph % (Auto) 32.5 (25-40) % Divide % (Auto) 6.5 (3-14) % Eos % (Auto) 2.3 (2-4) % Baso % (Auto) 0.6 (0-2) % Neut # (Auto) 5900 (9749-1884) /uL Lymph # (Auto) 3300 (2788-3828) /uL Divide # (Auto) 700 (0-900) /uL Eos # (Auto) 200 (0-450) /uL Baso # (Auto) 100 (0-100) /uL Sodium 137 (137-145) mmol/L Potassium 3.6 (3.4-5.1) mmol/L Chloride 107 (98-107) mmol/L Carbon Dioxide 24 (22-32) mmol/L BUN 11 (7-17) mg/dL Creatinine 0.94 (0.52-1.04) mg/dL Estimated GFR > 60 (>60) mL/min BUN/Creatinine Ratio 11.7 (6-22) Glucose 97 (70-100) mg/dL Calcium 8.9 (8.4-10.2) mg/dL Total Bilirubin 0.3 (0.2-1.3) mg/dL AST 23 (14-36) IU/L ALT 17 (<35) IU/L Alkaline Phosphatase 58 (38-126) U/L Total Protein 6.5 (6.3-8.2) g/dL Albumin 4.1 (3.5-5.0) g/dL Globulin 2.4 (1.7-4.1) g/dL Albumin/Globulin Ratio 1.7 (1.0-2.8) U Opiates 300ng/mL cut Positive H (Negative) Ur Oxycodone Screen Negative (Negative) Urine Methadone Screen Negative (Negative) Ur Barbiturates Screen Negative (Negative) U Tricyclic Antidepress Negative (Negative) Ur Phencyclidine Scrn Negative (Negative) Ur Amphetamines Screen Negative (Negative) U Methamphetamines Scrn Negative (Negative) Ur MDMA Scrn (Ecstasy) Negative (Negative) U Benzodiazepines Scrn Negative (Negative) Urine Cocaine Screen Negative (Negative) U Marijuana (THC) Screen Positive H (Negative) Urine pH TNP Urine Specific Superior TNP Ethyl Alcohol < 10 ( - 10) mg/dL Ur Creatinine TNP SARS-CoV-2 (PCR) Negative (Negative) Point of Care Testing Test Results Negative Urine Dip Bedside Urine Glucose Negative Bedside Urine Bilirubin - Negative Bedside Urine Ketone - Negative Urine Specific Superior 1.020 Bedside Urine Occult Blood - Negative Bedside Urine pH 6.0 Bedside Urine Protein - Negative Bedside Urine Urobilinogen - Negative Bedside Urine Nitrite - Negative Bedside Urine Leukocytes - Negative Esterase MDM Narrative Medical decision making narrative: Dr Hernandez: Received turned over. Review patient's history and physical. Patient is medically cleared. Has been seen by social work. Has been accepted to [facility]. Patient is voluntary. Patient was stable for transport. Discharge Plan Departure Patient Disposition: Xfer Psychiatric Hosp Clinical Impression: Sara Prescriptions: No Action bupropion HCl 150 mg tablet extended release 24 hr 150 mg PO QAM testosterone cypionate 200 mg/mL oil 35 mg SUBCUT QWEEK aripiprazole [Abilify] 5 mg tablet 5 mg PO DAILY Qty: 30 11RF dextroamphetamine-amphetamine [Adderall XR] 30 mg capsule,extended release 24hr 30 mg PO DAILY Qty: 30 0RF Rx Instructions: rx 1/3 dextroamphetamine-amphetamine [Adderall XR] 30 mg capsule,extended release 24hr 30 mg PO DAILY 30 Days Qty: 30 0RF Rx Instructions: rx 2/3 dextroamphetamine-amphetamine [Adderall XR] 30 mg capsule,extended release 24hr 30 mg PO DAILY 30 Days Qty: 30 0RF Rx Instructions: rx 3/3 prazosin 2 mg capsule 2 mg PO ONCE PM sulindac 200 mg tablet 200 mg PO DAILY lorazepam 1 mg tablet 1 mg PO BID PRN (Reason: anxiety attack) buspirone 10 mg tablet 10 mg PO 3XD lithium carbonate 300 mg capsule 300 mg PO 3XD docusate sodium 100 mg capsule 100 mg PO DAILY trazodone 100 mg tablet 150 mg PO ONCE PM albuterol sulfate 90 mcg/actuation HFA aerosol inhaler 2 puff inhalation Q6H PRN (Reason: shortness of breath or wheezing) Qty: 8.5 0RF methocarbamol 500 mg tablet 500 mg PO TID PRN (Reason: muscle spasm) Qty: 30 0RF Referrals: Gabe Ayala DO [Primary Care Provider] -
[2024-05-05 07:08] LABS: COVID19 -Nasal RAPID Negative (Negative)
[2024-05-05 07:11] LABS: Alanine Aminotransferase 17 IU/L (<35); Albumin 4.1 g/dL (3.5-5.0); Albumin Globulin Ratio 1.7 (1.0-2.8); Alkaline Phosphatase 58 U/L (38-126); Aspartate Aminotransferase 23 IU/L (14-36); BUN Creatinine Ratio 11.7 (6-22); Bilirubin Total 0.3 mg/dL (0.2-1.3); Blood Urea Nitrogen 11 mg/dL (7-17); Calcium 8.9 mg/dL (8.4-10.2); Carbon Dioxide 24 mmol/L (22-32); Chloride 107 mmol/L (98-107); Estimated Glomerular Filt Rate > 60 mL/min (>60); Ethanol (ETOH) < 10 mg/dL; Globulin 2.4 g/dL (1.7-4.1); Glucose 97 mg/dL (70-100); HEMOLYSIS < 15 (0-50); Potassium 3.6 mmol/L (3.4-5.1); Sodium 137 mmol/L (137-145); Total Protein 6.5 g/dL (6.3-8.2)
[2024-05-05 09:53] VITALS: BP 110/72; PULSE 98; RESP 14; O2SAT 96
--- NOTE | 2024-05-05 09:55 | PC.NURSE ---
This BEARINGIZER provided the pt with their breakfast tray and got a set of VS. Pt stated that their entire body hurts and requested for some pain meds. Will continue to monitor by bedside.
[2024-05-05] MEDS: ACETAMINOPHEN 325 MG TABLET 650 MG PO (10:24)
[2024-05-05 10:26] VITALS: RESP 16; TEMP 36.7
--- NOTE | 2024-05-05 11:39 | PC.NURSE ---
LINECASTING MACHINE KEYBOARD OPERATOR in with patient. Will continue to monitor at bedside.
--- NOTE | 2024-05-05 12:16 | CM.SWNOTE ---
ED THOROUGHBRED HORSE FARM MANAGER Assessment Note: THOROUGHBRED HORSE FARM MANAGER - Straddle Buggy Operator Assessment THOROUGHBRED HORSE FARM MANAGER/Straddle Buggy Operator Assessment Time Spent with Patient Start date 05/05/24 Visit Start Time 11:15 End date 05/05/24 Visit End Time 11:35 Total time Care Management spent on 20 minutes patient visit-in minutes Mental Health Screening Include Onset, Duration, Intensity Presenting Problem Patient presented to the ED for suicidal ideation and requesting voluntary treatment to stabilize on medications. Patient states their medications are not working. Precipitating Event(s) Patient explains they have been not feeling well mentally for the past week and a half and recognized an increase on their suicidal thoughts. Patient Strengths Patient collaborates effectively with PCP (Dr. Gabe Ayala) and Psychatrist, is self-aware and can communicate needs. Current Behavioral Health Provider(s) Patient sees Dr. Hernandez Include Facility, Provider, Ph. # [facility] (ph#[phone]). Psych. Hx Mental Health and Chemical Patient has a psych hx of Dependency bipolar I disoder, ADHD, PTSD. Patient is prescribed lithium , wellbutrin, lorazapam, trazadone, abilify and prazosin. Family Hx of Behavioral Abuse Patient family has a hx of mental illness - mother has bipolar disorder and father struggled with ETOH disorder. Psychiatric Hospitalizations (date(s)/ [facility] - 2021, after a location) suicide attempt [facility] - January and March 2024, suicidal ideation Psychosocial information & Support Patient is a 18yo female to Systems male transgender individual ( He/Him/His) who resides in [facility]. 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 Legal Concerns Legal Matters - Outstanding Issues None reported. Mental Status Orientation (Person/Place/Time) AOx4 Stated Mood Jose Affect (Congruent with Mood?) Dysthymic, tearful, congruent with mood Thought Content - Specify/Describe Visual hallucinations: on and Obsessions, Delusions, Hallucinations off delayed vision Auditory hallucinations: Sometimes I can hear a voice telling me something bad will happen and they usually do happen. Patient denies AH are commands. Thought Processes (Vzsylwt-Epzfpzbo-Taby Coherent, goal directed Dyvpgmfd-Hrjncosj-Qelcrqkmzm- Ubisjrxqhtvyis-Avizqjr-Gxsqibrcneqw- Thought Blocking) Speech (Vaollz-Oefj-Zlpyhns-Rapid-Soft- Normal, soft Loud-Pressured) Motor (Thybkd-Yaxwrvclh-Womc-Other) Normal Insight (Ungr-Hvba-Ouop/Limited) Fair/limited Judgement (Cboe-Cenm-Wrrc/Limited) Fair/limited Impulse Control (Adequate-Impaired) Adequate during assessment, patient endorses concern for their impulse control Memory (Sjkprupju-Knddil-Apdgvb, Intact Impaired-Intact) Concentration (Intact-Impaired) Intact Attention (Intact-Impaired) Intact Behavior (Appropriate-Inappropriate) Appropriate Additional Comment Patient is calm, cooperative, and communicative during assessment. Risk Assessment Suicidal Ideation (Plan) Yes Homicidal Ideation (Plan) No Comment Patient presents with increasing SI, with plans to overdose on medications. Patient denies HI. Patient explains they have been having increased suicidal ideation in the last week and explains it to be lonely and hopeless due to negative family dynamics and recent relationship loss. Patient has a hx of 3 suicide attempts to include overdose at 12yo, self-lacerations at 14yo and attempt of hanging self at age 15. Intervention Intervention THOROUGHBRED HORSE FARM MANAGER meets with patient. Patient reports not doing well mentally and increased suicidal ideation. Patient identifies a need to reassess medications and restabilization. Patient explains suicidal ideation with plans to overdose; increased thoughts of hopelessness and loneliness. THOROUGHBRED HORSE FARM MANAGER and patient discuss next steps; reviewed pt previous inpatient hx and preferences. Patient explains they are agreeable to receive inpatient behavioral health hospitalization at this time. At this time, it is the opinion of this THOROUGHBRED HORSE FARM MANAGER that patient would benefit from inpatient psychiatric hospitalization for SI. THOROUGHBRED HORSE FARM MANAGER informs ED provider, Dr. Hernandez, who indicates agreement. THOROUGHBRED HORSE FARM MANAGER informs MARVIN Juares. Plan RA Plan ED THOROUGHBRED HORSE FARM MANAGER to seek voluntary placement for patient upon medical clearance. AMINATA Pinzon
--- NOTE | 2024-05-05 13:34 | CM.SWNOTE ---
ED AUTOMOTIVE TECHNOLOGY INSTRUCTOR Note: ED AUTOMOTIVE TECHNOLOGY INSTRUCTOR initiated bed search for inpatient BH treatment. AUTOMOTIVE TECHNOLOGY INSTRUCTOR calls [facility], it was reported that there are available beds. AUTOMOTIVE TECHNOLOGY INSTRUCTOR completed phone screening and sent a packet for review. AUTOMOTIVE TECHNOLOGY INSTRUCTOR calls [facility], it was reported that there are beds available. AUTOMOTIVE TECHNOLOGY INSTRUCTOR completed phone screening and sent a packet for review. AUTOMOTIVE TECHNOLOGY INSTRUCTOR recieved a call from [facility], spoke with Tera. It is reported that pt has been accepted for inpatient BH treatment. Accepting Provider: Dr. Anabel Wolff MD RN to RN Report#: [phone] AUTOMOTIVE TECHNOLOGY INSTRUCTOR called [facility] and coordinated a transport for pt at 1400, to arrive at [facility] at approximately 1500. Notified [facility] of confirmed transport time. AUTOMOTIVE TECHNOLOGY INSTRUCTOR notified pt of above, who is in agreement with plan, stated preference for [facility]. Plan: Pt to transfer to [facility] via [facility] at 1400 for inpatient BH treatment. AMINATA Piznon
[2024-05-05 14:06] VITALS: BP 115/53; PULSE 63; RESP 19; TEMP 36.9; O2SAT 99
--- NOTE | 2024-05-05 14:06 | PC.NURSE ---
;reassess; no change
--- NOTE | 2024-05-05 14:07 | PC.NURSE ---
reassess; no change
== END 2024-05-05 14:12 ==
PROVIDERS: Emergency Medicine; Emergency Provider Emergency Medicine; PCP Family Medicine
DX: F30.9 Manic episode, unspecified (principal)
CPT/HCPCS: 36415; 80053; 80305; 80320; 81003; 81025; 85025; 87635; 99283; 99284

== ENCOUNTER 2024-05-17 20:55 | Emergency (ER) | payer OTHER, SELFPAY ==
[2024-05-17 20:58] VITALS: BP 131/87; PULSE 80; RESP 18; TEMP 35.7; O2SAT 97; BMI 34.2
--- NOTE | 2024-05-17 21:43 | PC.NURSE ---
I called [facility] and they report they do not have beds for detox. I called [facility] on [address]. They report they have detox beds and to call back at [phone] to give report.
[2024-05-17 21:48] LABS: Add Manual Diff / Slide Review NO; Basophils Absolute Auto 100 /uL (0-100); Basophils Percent Auto 0.7 % (0-2); Eosinophils Absolute Auto 300 /uL (0-450); Eosinophils Percent Auto 2.1 % (2-4); Hematocrit 46.9 % (36-46); Hemoglobin 15.6 g/dL (12.0-16.0); Lymphocytes Absolute Auto 3500 /uL (1100-4500); Lymphocytes Percent Auto 27.6 % (25-40); Mean Corpuscular HGB Conc 33.2 % (30-36); Mean Corpuscular Hemoglobin 30.8 PG (26-34); Mean Corpuscular Volume 92.6 fL (80-100); Monocytes Absolute Auto 700 /uL (0-900); Monocytes Percent Auto 5.2 % (3-14); Neutrophils Absolute Auto 8100 /uL (1500-7000); Neutrophils Percent Auto 64.4 % (50-75); Platelet Count 366 X10^3/uL (150-400); Red Blood Cell Count 5.06 X10^6/uL (4.0-5.2); Red Cell Distribution Width 13.4 % (11.6-14.8); White Blood Cell Count 12.6 X10^3/uL (4.5-11.0)
--- NOTE | 2024-05-17 21:52 | ED.GENADULT ---
HPI - General Adult General Chief complaint: Toxicology Problem Stated complaint: Really Drunk, Not Doing Well Time Seen by Provider: 05/17/24 21:44 Source: patient Mode of arrival: Ambulatory History of Present Illness HPI narrative: Patient is here for evaluation of alcohol intoxication and wanting help with detox. Patient's last drink was approximately 45 minutes prior to coming to the emergency department. Patient does drink on a daily basis. Has not had any issues with alcohol withdrawal seizures in the past but has had some nausea and irritation. Has a tendon detox in the past that was approximately 1 year ago. Related Data Home Medications Medication Instructions Recorded Confirmed testosterone cypionate 200 mg/mL 35 mg SUBCUT QWEEK 11/11/23 04/19/24 intramuscular oil sulindac 200 mg tablet 200 mg PO DAILY chronic pain 02/09/24 04/19/24 docusate sodium 100 mg capsule 100 mg PO DAILY 02/10/24 05/17/24 Previous Rx's Medication Instructions Recorded aripiprazole 5 mg tablet (Abilify) 5 mg PO DAILY #30 tabs 12/08/23 methocarbamol 500 mg tablet 500 mg PO TID PRN muscle spasm #30 01/12/24 tabs albuterol sulfate 90 mcg/actuation 2 puff inhalation Q6H PRN 02/27/24 aerosol inhaler shortness of breath or wheezing #8.5 grams aripiprazole 400 mg intramuscular 400 mg IM QMONTH #1 ea 05/17/24 suspension,extended release (Abilify Maintena) divalproex 250 mg tablet,delayed 250 mg PO BID #60 tabs 05/17/24 release (Depakote) lithium carbonate 600 mg capsule 600 mg PO BID #60 caps 05/17/24 Allergies Allergy/AdvReac Type Severity Reaction Status Date / Time [place] And Derivatives Allergy Unknown mouth Verified 03/15/24 10:18 sores, nausea nicotine patch AdvReac Mild Rash Uncoded 04/19/24 13:39 Review of Systems Review of Systems ROS Unobtainable: All systems reviewed & are unremarkable except as noted in HPI and below Patient History Medical History Inhalant use disorder, mild, abuse Marijuana dependence Vapes nicotine containing substance Alcohol addiction Bipolar 1 disorder Gender dysphoria Bulimia (~2020) History of bipolar disorder (~2018) Anorexia nervosa (~2019) Migraines (~2019) Fractures Chronic back pain (~2014) History of recurrent ear infection (~2014) Painful menstrual periods (~2017) History of self-harm ADHD (~2009) CHAMP (generalized anxiety disorder) (~2009) PTSD (post-traumatic stress disorder) (~2008) Major depression, single episode Family History Father Mental health problem Anxiety PTSD (post-traumatic stress disorder) Depression Substance use Mother Mental health problem Gastroparesis Gastritis History of bipolar disorder Depression History of anorexia nervosa History of bulimia PTSD (post-traumatic stress disorder) Anxiety Sister Mental health problem Autism PTSD (post-traumatic stress disorder) Anxiety ADHD Sister Mental health problem ADHD Grandmother Thyroid disorder History of anorexia nervosa Social History household members: friend(s) Smoking Status: Current every day smoker alcohol intake: former Smoking Status: Current every day smoker tobacco type: cigarettes and vaping alcohol intake frequency: 3 or more drinks per day Alcohol type: hard liquor Exam Initial Vital Signs Initial Vital Signs: Vital Signs Temperature 96.3 F L 05/17/24 20:58 Pulse Rate 80 05/17/24 20:58 Respiratory Rate 18 05/17/24 20:58 Blood Pressure 131/87 05/17/24 20:58 Pulse Oximetry 97 05/17/24 20:58 Oxygen Delivery Method Room Air 05/17/24 20:58 Const General: cooperative and No ill appearing HENMT Head: normal to inspection and normocephalic Resp Effort & Inspection: normal respiratory effort Cardio Rate: regular rate GI Inspection: normal to inspection Neuro General: patient alert, patient awake, patient oriented x3 and moves all extremities Course Orders Ordered: ED Orders 05/17/24 21:37 Acetaminophen Stat Complete Blood Count AUTO DIFF Stat Comprehensive Metabolic Panel Stat Ethanol (ETOH) Stat Free T4, Direct Thyroxine Stat Salicylate Stat Thyroid Stimulating Hormone Stat Discontinued Medications Acetaminophen (Acetaminophen 325 Mg Tablet) 650 mg PO NOW ONE Stop: 05/17/24 21:53 Last Admin: 05/17/24 22:27 Dose: 650 mg Documented By: LING Vital Signs Vital signs: Vital Signs - 8 hr 05/18/24 05:35 Pulse Rate 60 Respiratory Rate 17 Blood Pressure 125/62 Pulse Oximetry 98 Oxygen Delivery Method Room Air Medical Decision Making Lab Data Lab results reviewed: Yes I reviewed the patient's lab results. 05/17/24 21:37 05/17/24 21:37 Labs: Lab Results 05/17/24 05/17/24 Range/Units 21:33 21:37 WBC 12.6 H (4.5-11.0) X10^3/uL RBC 5.06 (4.0-5.2) X10^6/uL Hgb 15.6 (12.0-16.0) g/dL Hct 46.9 H (36-46) % MCV 92.6 (80-100) fL MCH 30.8 (26-34) PG MCHC 33.2 (30-36) % RDW 13.4 (11.6-14.8) % Plt Count 366 (150-400) X10^3/uL Neut % (Auto) 64.4 (50-75) % Lymph % (Auto) 27.6 (25-40) % [place] % (Auto) 5.2 (3-14) % Eos % (Auto) 2.1 (2-4) % Baso % (Auto) 0.7 (0-2) % Neut # (Auto) 8100 H (4976-6458) /uL Lymph # (Auto) 3500 (3384-2017) /uL [place] # (Auto) 700 (0-900) /uL Eos # (Auto) 300 (0-450) /uL Baso # (Auto) 100 (0-100) /uL Sodium 141 (137-145) mmol/L Potassium 3.9 (3.4-5.1) mmol/L Chloride 105 (98-107) mmol/L Carbon Dioxide 22 (22-32) mmol/L BUN 10 (7-17) mg/dL Creatinine 0.83 (0.52-1.04) mg/dL Estimated GFR > 60 (>60) mL/min BUN/Creatinine Ratio 12.0 (6-22) Glucose 99 (70-100) mg/dL Calcium 9.4 (8.4-10.2) mg/dL Total Bilirubin 0.4 (0.2-1.3) mg/dL AST 30 (14-36) IU/L ALT 23 (<35) IU/L Alkaline Phosphatase 75 (38-126) U/L Total Protein 7.8 (6.3-8.2) g/dL Albumin 5.1 H (3.5-5.0) g/dL Globulin 2.7 (1.7-4.1) g/dL Albumin/Globulin Ratio 1.9 (1.0-2.8) TSH 5.53 H (0.47-4.68) uIU/mL Free T4 1.26 (0.78-2.19) ng/dL Salicylates < 1.0 (<20) mg/dL U Opiates 300ng/mL cut Negative (Negative) Ur Oxycodone Screen Negative (Negative) Urine Methadone Screen Negative (Negative) Acetaminophen < 10 (10-30) ug/mL Ur Barbiturates Screen Negative (Negative) U Tricyclic Antidepress Negative (Negative) Ur Phencyclidine Scrn Negative (Negative) Ur Amphetamines Screen Negative (Negative) U Methamphetamines Scrn Negative (Negative) Ur MDMA Scrn (Ecstasy) Negative (Negative) U Benzodiazepines Scrn Negative (Negative) Urine Cocaine Screen Negative (Negative) U Marijuana (THC) Screen Positive H (Negative) Urine pH Normal (Normal) Urine Specific [place] Normal (Normal) Ethyl Alcohol 123 H ( - 10) mg/dL Ur Creatinine Normal (Normal) Point of Care Testing Test Results Negative Urine Dip Bedside Urine Glucose Negative Bedside Urine Bilirubin - Negative Bedside Urine Ketone - Negative Urine Specific [place] 1.015 Bedside Urine Occult Blood - Negative Bedside Urine pH 6.0 Bedside Urine Protein - Negative Bedside Urine Urobilinogen - Negative Bedside Urine Nitrite - Negative Bedside Urine Leukocytes - Negative Esterase Point of care testing: Point of Care Testing Test Results Negative Urine Dip Bedside Urine Glucose Negative Bedside Urine Bilirubin - Negative Bedside Urine Ketone - Negative Urine Specific [place] 1.015 Bedside Urine Occult Blood - Negative Bedside Urine pH 6.0 Bedside Urine Protein - Negative Bedside Urine Urobilinogen - Negative Bedside Urine Nitrite - Negative Bedside Urine Leukocytes - Negative Esterase MDM Narrative Medical decision making narrative: No signs of withdrawal. Patient was alert and oriented. Is voluntary. Patient was medically cleared. Attempted to contact multiple places without success. Patient has been accepted to detox. Patient has had no signs of alcohol withdrawal. Discharge Plan Departure Patient Disposition: Home Clinical Impression: Alcohol intoxication Instructions: DI for Alcohol Use Disorder Activity Restrictions/Additional Instructions: No driving for the next 24 hours or in the future if you drink alcohol. You have been accepted to [facility] located at [address] [place] [address] in [place]. I recommend that you proceed directly to the detox facility from the emergency department. Prescriptions: No Action lithium carbonate 600 mg capsule 600 mg PO BID Qty: 60 3RF divalproex [Depakote] 250 mg tablet,delayed release (DR/EC) 250 mg PO BID Qty: 60 3RF Abilify Maintena 400 mg suspension,extended rel recon 400 mg IM QMONTH Qty: 1 3RF testosterone cypionate 200 mg/mL oil 35 mg SUBCUT QWEEK aripiprazole [Abilify] 5 mg tablet 5 mg PO DAILY Qty: 30 11RF sulindac 200 mg tablet 200 mg PO DAILY docusate sodium 100 mg capsule 100 mg PO DAILY albuterol sulfate 90 mcg/actuation HFA aerosol inhaler 2 puff inhalation Q6H PRN (Reason: shortness of breath or wheezing) Qty: 8.5 0RF methocarbamol 500 mg tablet 500 mg PO TID PRN (Reason: muscle spasm) Qty: 30 0RF Referrals: Gabe Ayala DO [Primary Care Provider] - Stand Alone Forms: Patient Portal/API/Survey
[2024-05-17 21:53] LABS: UR Morphine/Opiate cutoff 300 Negative (Negative); Ur Creatinine Normal (Normal); Ur Specific Gravity Normal (Normal); Urine Amphetamines Negative (Negative); Urine Barbiturates Negative (Negative); Urine Benzodiazepines Negative (Negative); Urine Cocaine Negative (Negative); Urine MDMA Negative (Negative); Urine Methadone Negative (Negative); Urine Methamphetamines Negative (Negative); Urine Oxycodone Negative (Negative); Urine Phencyclidine Negative (Negative); Urine Tetrahydrocannabinol Positive (Negative); Urine Tricyclic Antidepressant Negative (Negative); Urine pH Normal (Normal)
[2024-05-17 21:58] LABS: Acetaminophen < 10 ug/mL (10-30); Alanine Aminotransferase 23 IU/L (<35); Albumin 5.1 g/dL (3.5-5.0); Albumin Globulin Ratio 1.9 (1.0-2.8); Alkaline Phosphatase 75 U/L (38-126); Aspartate Aminotransferase 30 IU/L (14-36); Bilirubin Total 0.4 mg/dL (0.2-1.3); Blood Urea Nitrogen 10 mg/dL (7-17); Calcium 9.4 mg/dL (8.4-10.2); Carbon Dioxide 22 mmol/L (22-32); Chloride 105 mmol/L (98-107); Estimated Glomerular Filt Rate > 60 mL/min (>60); Ethanol (ETOH) 123 mg/dL; Globulin 2.7 g/dL (1.7-4.1); Glucose 99 mg/dL (70-100); HEMOLYSIS < 15 (0-50); Potassium 3.9 mmol/L (3.4-5.1); Salicylate < 1.0 mg/dL (<20); Sodium 141 mmol/L (137-145); Total Protein 7.8 g/dL (6.3-8.2)
[2024-05-17 22:26] LABS: Free T4, Direct Thyroxine 1.26 ng/dL (0.78-2.19)
[2024-05-17] MEDS: ACETAMINOPHEN 325 MG TABLET 650 MG PO (22:27)
[2024-05-17 22:41] LABS: Thyroid Stimulating Hormone 5.53 uIU/mL (0.47-4.68)
--- NOTE | 2024-05-17 22:46 | PC.NURSE ---
Information faxed to [facility]. Phone screening in progress at this time.
--- NOTE | 2024-05-17 23:55 | PC.NURSE ---
Call made to [facility] and they said the provder is reviewing the patient's information at this time.
--- NOTE | 2024-05-18 00:38 | PC.NURSE ---
I called Sakina Kumari again at this time, the provider is still reviewing the chart of the patient.
[2024-05-18 05:35] VITALS: BP 125/62; PULSE 60; RESP 17; O2SAT 98
--- NOTE | 2024-05-18 05:57 | PC.NURSE ---
F/u with Kimberly garrido and the Provider has not made a determination on accepting Pt for detox. Telephone screener indicated that there would be a determination sometime around 5 to 7 am
--- NOTE | 2024-05-18 06:51 | PC.NURSE ---
Spoke with Jostin WONG, at [facility] and facility has accepted pt with admitting Dr. Sherri Shelby. Bed will be ready at [address] hernandez is printing hard scripts of the daily medications the patient takes and those will be filled at [facility]- Per MARVIN Frankel . Dr. Hernandez discharged patient. Pt stable, VSS, CIWA 0.
[2024-05-18 06:59] VITALS: BP 130/68; PULSE 63; RESP 16; O2SAT 100
== END 2024-05-18 07:38 | disposition home or self-care (01) ==
PROVIDERS: Emergency Provider Emergency Medicine; PCP Family Medicine
DX: F10.129 Alcohol abuse with intoxication, unspecified (principal); F12.90 Cannabis use, unspecified, uncomplicated; Y90.6 Blood alcohol level of 120-199 mg/100 ml
CPT/HCPCS: 36415; 80053; 80305; 80320; 80329; 81003; 81025; 84439; 84443; 85025; 99215; 99284; G0480

== ENCOUNTER 2024-06-28 19:47 | Emergency (ER) | payer OTHER, SELFPAY ==
[2024-06-28 20:00] VITALS: BP 129/65; PULSE 90; RESP 18; TEMP 36.6; O2SAT 99; BMI 33.5
--- NOTE | 2024-06-28 20:39 | DI.RAD.S_ITS ---
PROCEDURE: XR HIP W PEL IF DONE LT 2V INDICATIONS: pain to hip into pelvis, worse to stand/ambulate/bear weight TECHNIQUE: AP pelvis with lateral view(s) of the left hip(s). COMPARISON: None. FINDINGS: Bones: No fractures or dislocations. Pubic symphysis appears widened measuring 10 mm Pelvic ring appears intact. No suspicious bony lesions. Soft tissues: The visualized bowel gas pattern is normal. No suspicious soft tissue calcifications. IMPRESSION: No acute osseous abnormality. If pain persists with conservative management, consider repeat x-ray in 10-14 days or cross-sectional imaging. Pubic symphysis appears widened measuring approximately 10 mm, correlate with prior trauma. Dictated by: Hammad Patel M.D. on 06/28/2024 at 21:55 Approved by: Hammad Patel M.D. on 06/28/2024 at 21:56
[2024-06-28 21:32] LABS: Appearance Urine UA CLEAR; Bilirubin Urine UA NEGATIVE (NEGATIVE); Color Urine UA YELLOW; Glucose Urine UA NEGATIVE (Negative); Ketones Urine UA NEGATIVE (NEGATIVE); Leukocyte Esterase Urine UA NEGATIVE (NEGATIVE); Nitrite Urine UA NEGATIVE (Negative); Occult Blood Urine UA TRACE-INTACT (Negative); Protein Urine UA NEGATIVE (Negative); Urobilinogen Urine UA 0.2 E.U./dL (0.2)
[2024-06-28 21:34] LABS: pH Urine UA 7.5 (4.5-8.0)
[2024-06-28 21:41] LABS: Bacteria Urine Occasional (0-1); Culture Indicated Urine Cult Not Indicated; RBC Urine 0-1/HPF (0-5/HPF); Squamous Epithelial Cell Urine 1-5 /HPF (0-5/HPF); Urine Volume 10mL (spun); WBC Urine 0-1/HPF (0-5/HPF)
[2024-06-28 22:27] LABS: Add Manual Diff / Slide Review NO; Basophils Absolute Auto 100 /uL (0-100); Basophils Percent Auto 0.5 % (0-2); Eosinophils Absolute Auto 400 /uL (0-450); Eosinophils Percent Auto 3.8 % (2-4); Hematocrit 46.6 % (36-46); Hemoglobin 15.7 g/dL (12.0-16.0); Lymphocytes Absolute Auto 2500 /uL (1100-4500); Lymphocytes Percent Auto 21.6 % (25-40); Mean Corpuscular HGB Conc 33.8 % (30-36); Mean Corpuscular Hemoglobin 30.5 PG (26-34); Mean Corpuscular Volume 90.3 fL (80-100); Monocytes Absolute Auto 500 /uL (0-900); Monocytes Percent Auto 4.6 % (3-14); Neutrophils Absolute Auto 8100 /uL (1500-7000); Neutrophils Percent Auto 69.5 % (50-75); Platelet Count 312 X10^3/uL (150-400); Red Blood Cell Count 5.16 X10^6/uL (4.0-5.2); Red Cell Distribution Width 13.8 % (11.6-14.8); White Blood Cell Count 11.6 X10^3/uL (4.5-11.0)
[2024-06-28 22:44] LABS: Alanine Aminotransferase 33 IU/L (<35); Albumin 4.9 g/dL (3.5-5.0); Albumin Globulin Ratio 1.6 (1.0-2.8); Alkaline Phosphatase 88 U/L (38-126); Aspartate Aminotransferase 40 IU/L (14-36); BUN Creatinine Ratio 8.2 (6-22); Bilirubin Total 0.7 mg/dL (0.2-1.3); Blood Urea Nitrogen 8 mg/dL (7-17); Calcium 9.7 mg/dL (8.4-10.2); Carbon Dioxide 20 mmol/L (22-32); Chloride 107 mmol/L (98-107); Estimated Glomerular Filt Rate > 60 mL/min (>60); Glucose 87 mg/dL (70-100); HEMOLYSIS 23 (0-50); Lipase 84 U/L (23-300); Potassium 3.7 mmol/L (3.4-5.1); Sodium 139 mmol/L (137-145); Total Protein 7.9 g/dL (6.3-8.2)
[2024-06-29] VITALS (7 sets, daily range): BP systolic 115–125; BP diastolic 69–82; PULSE 76–101; RESP 17; TEMP 36.6; O2SAT 95–100
--- NOTE | 2024-06-29 00:26 | ED.ABDPAIN ---
HPI - Abdominal Pain General Chief Complaint: Abdominal Pain Stated Complaint: Severe Abdominal/legg pain Time Seen by Provider: 06/29/24 00:26 Source: patient Mode of arrival: Wheelchair History of Present Illness HPI narrative: 19-year-old female with a past medical history of bipolar type 1, marijuana dependence, chronic low back pain, and left leg pain, chronically uses cane, PTSD major depression disorder comes into the ED from home for evaluation of abdominal pain and hip pain. She states that she has been having exacerbation of the left hip pain and feels like it is radiates to her abdomen ongoing persistent for the past 3 days, also stating she has been having some loose stools and nausea, she states that she has not having any other symptoms such as headache visual disturbances chest pain shortness of breath fever chills or any other GI/ symptoms at this time. Related Data Home Medications Medication Instructions Recorded Confirmed testosterone cypionate 200 mg/mL 35 mg SUBCUT QWEEK 11/11/23 04/19/24 intramuscular oil sulindac 200 mg tablet 200 mg PO DAILY chronic pain 02/09/24 04/19/24 docusate sodium 100 mg capsule 100 mg PO DAILY 02/10/24 05/17/24 Previous Rx's Medication Instructions Recorded aripiprazole 5 mg tablet (Abilify) 5 mg PO DAILY #30 tabs 12/08/23 methocarbamol 500 mg tablet 500 mg PO TID PRN muscle spasm #30 01/12/24 tabs albuterol sulfate 90 mcg/actuation 2 puff inhalation Q6H PRN 02/27/24 aerosol inhaler shortness of breath or wheezing #8.5 grams aripiprazole 400 mg intramuscular 400 mg IM QMONTH #1 ea 05/17/24 suspension,extended release (Abilify Maintena) divalproex 250 mg tablet,delayed 250 mg PO BID #60 tabs 05/17/24 release (Depakote) lithium carbonate 600 mg capsule 600 mg PO BID #60 caps 05/17/24 aripiprazole 5 mg tablet (Abilify) See Rx Instructions .Route 05/18/24 .COMPLEX #30 tabs divalproex 250 mg tablet,delayed 250 mg PO BID #30 tabs 05/18/24 release (Depakote) lithium carbonate 600 mg capsule 600 mg PO BID #60 caps 06/02/24 trazodone 150 mg tablet 150 mg PO BEDTIME PRN insomnia #30 06/02/24 tabs cyclobenzaprine 10 mg tablet 10 mg PO BEDTIME PRN muscle spasm 06/29/24 1 week #7 tabs naproxen 500 mg tablet (Naprosyn) 500 mg PO BID PRN pain 1 week #14 06/29/24 tabs Allergies Allergy/AdvReac Type Severity Reaction Status Date / Time testosterone Allergy Intermediate Rash Verified 06/28/24 20:52 [place] And Derivatives Allergy Unknown mouth Verified 03/15/24 10:18 sores, nausea nicotine patch AdvReac Mild Rash Uncoded 04/19/24 13:39 Review of Systems Review of Systems Narrative: General: Denies fever, chills, weight loss HEENT: Denies headache, eye drainage, eye irritation, head trauma, sore throat, voice change Cardiovascular: Denies any chest pain, palpitations, shortness of breath, tachycardia Respiratory: Denies any shortness of breath, cough, wheeze, stridor GI/: Positive abdominal pain, nausea, denies vomiting, diarrhea, bright red blood per rectum, melanotic stools, urinary frequency, urinary retention, dysuria, hematuria MSK: Positive left hip pain Skin: Denies any rashes, lesions, discoloration Neuro: Denies any headache, lightheadedness, dizziness, fainting, weakness Psych: Denies SI/HI Patient History Medical History Inhalant use disorder, mild, abuse Marijuana dependence Vapes nicotine containing substance Alcohol addiction Bipolar 1 disorder Gender dysphoria Bulimia (~2020) History of bipolar disorder (~2017) Anorexia nervosa (~2019) Migraines (~2018) Fractures Chronic back pain (~2014) History of recurrent ear infection (~2014) Painful menstrual periods (~2017) History of self-harm ADHD (~2009) CHAMP (generalized anxiety disorder) (~2009) PTSD (post-traumatic stress disorder) (~2008) Major depression, single episode Family History Father Mental health problem Anxiety PTSD (post-traumatic stress disorder) Depression Substance use Mother Mental health problem Gastroparesis Gastritis History of bipolar disorder Depression History of anorexia nervosa History of bulimia PTSD (post-traumatic stress disorder) Anxiety Sister Mental health problem Autism PTSD (post-traumatic stress disorder) Anxiety ADHD Sister Mental health problem ADHD Grandmother Thyroid disorder History of anorexia nervosa Social History household members: friend(s) Smoking Status: Current every day smoker alcohol intake: former Smoking Status: Current every day smoker tobacco type: cigarettes and vaping alcohol intake frequency: 3 or more drinks per day Alcohol type: hard liquor Exam Narrative Exam Narrative: General: Cooperative, comfortable, well-developed, not in acute distress HEENT: Normocephalic, atraumatic, PERRLA, normal sclera, eyelids normal, Neck: Active full range of motion, atraumatic Chest: Normal to inspection, negative crepitus, no overlying erythema ecchymosis Respiratory: Normal respiratory effort, not in acute respiratory distress, clear to auscultation bilaterally negative cough, wheeze, tachypnea, rhonchi, rales Cardiology: Regular rate rhythm negative gallop, murmur, rubs GI/: Normal to inspection, soft, nonrigid, mild tenderness to palpation lower abdomen, exam deferred MSK: Decreased active passive range of motion of the left hip however neurovascularly intact, patient is able to stand bear with a cane which is baseline Skin: No rashes lesions noted Neuro: Alert awake oriented x3, moves all 4 extremities spontaneously, cranial nerves intact, able to answer all questions appropriately follows commands appropriately Psych: Cooperative, negative suicidal or homicidal ideations Initial Vital Signs Initial Vital Signs: Vital Signs Temperature 97.8 F 06/28/24 20:00 Pulse Rate 90 06/28/24 20:00 Respiratory Rate 18 06/28/24 20:00 Blood Pressure 129/65 06/28/24 20:00 Pulse Oximetry 99 06/28/24 20:00 Oxygen Delivery Method Room Air 06/28/24 20:00 Course Orders Ordered: ED Orders 06/28/24 20:39 XR hip w pel if done LT 2V Stat 06/28/24 21:00 Urinalysis and Microscopic Stat 06/28/24 22:07 Complete Blood Count AUTO DIFF Stat Comprehensive Metabolic Panel Stat Lipase Stat 06/29/24 00:38 CT abdomen pelvis w con Stat Ondansetron HCl (Ondansetron 4 Mg/2 Ml Inj) 4 mg IV NOW PRN PRN Reason: Nausea And Vomiting Ondansetron HCl (Ondansetron 4 Mg Odt) 4 mg PO NOW PRN PRN Reason: Nausea And Vomiting Discontinued Medications Morphine Sulfate (Morphine 4 Mg/Ml Inj) 4 mg IV NOW ONE Stop: 06/29/24 00:39 Last Admin: 06/29/24 01:26 Dose: 4 mg Documented By: CLAIRE Ondansetron HCl (Ondansetron 4 Mg/2 Ml Inj) 4 mg IV NOW ONE Stop: 06/29/24 00:39 Last Admin: 06/29/24 01:26 Dose: 4 mg Documented By: CLAIRE Vital Signs Vital signs: Vital Signs - 8 hr 06/28/24 20:00 06/29/24 00:03 Temperature 97.8 F 97.8 F Pulse Rate 90 76 Respiratory Rate 18 17 Blood Pressure 129/65 115/69 Pulse Oximetry 99 97 Oxygen Delivery Method Room Air Room Air MDM - Abdominal Pain Differential Diagnosis Differential diagnosis: Likely abdominal pain, acute appendicitis, constipation, diverticulitis and small bowel obstruction Lab Data 06/28/24 22:07 06/28/24 22:07 Labs: Lab Results 06/28/24 06/28/24 Range/Units 21:00 22:07 WBC 11.6 H (4.5-11.0) X10^3/uL RBC 5.16 (4.0-5.2) X10^6/uL Hgb 15.7 (12.0-16.0) g/dL Hct 46.6 H (36-46) % MCV 90.3 (80-100) fL MCH 30.5 (26-34) PG MCHC 33.8 (30-36) % RDW 13.8 (11.6-14.8) % Plt Count 312 (150-400) X10^3/uL Neut % (Auto) 69.5 (50-75) % Lymph % (Auto) 21.6 L (25-40) % [place] % (Auto) 4.6 (3-14) % Eos % (Auto) 3.8 (2-4) % Baso % (Auto) 0.5 (0-2) % Neut # (Auto) 8100 H (7744-6947) /uL Lymph # (Auto) 2500 (2495-1994) /uL [place] # (Auto) 500 (0-900) /uL Eos # (Auto) 400 (0-450) /uL Baso # (Auto) 100 (0-100) /uL Sodium 139 (137-145) mmol/L Potassium 3.7 (3.4-5.1) mmol/L Chloride 107 (98-107) mmol/L Carbon Dioxide 20 L (22-32) mmol/L BUN 8 (7-17) mg/dL Creatinine 0.97 (0.52-1.04) mg/dL Estimated GFR > 60 (>60) mL/min BUN/Creatinine Ratio 8.2 (6-22) Glucose 87 (70-100) mg/dL Calcium 9.7 (8.4-10.2) mg/dL Total Bilirubin 0.7 (0.2-1.3) mg/dL AST 40 H (14-36) IU/L ALT 33 (<35) IU/L Alkaline Phosphatase 88 (38-126) U/L Total Protein 7.9 (6.3-8.2) g/dL Albumin 4.9 (3.5-5.0) g/dL Globulin 3.0 (1.7-4.1) g/dL Albumin/Globulin Ratio 1.6 (1.0-2.8) Lipase 84 (23-300) U/L Urine Color Yellow Urine Appearance Clear Urine pH 7.5 (4.5-8.0) Ur Specific [place] 1.010 (1.000-1.035) Urine Protein Negative (Negative) Urine Glucose (UA) Negative (Negative) g/dL Urine Ketones Negative (NEGATIVE) Urine Occult Blood Trace-intact (Negative) Urine Nitrate Negative (Negative) Urine Bilirubin Negative (NEGATIVE) Urine Urobilinogen 0.2 (0.2) E.U./dL Ur Leukocyte Esterase Negative (NEGATIVE) Urine RBC 0-1/hpf (0-5/HPF) Urine WBC 0-1/hpf (0-5/HPF) Ur Squamous Epith Cells 1-5 /hpf (0-5/HPF) Urine Bacteria Occasional (0-1) (None) Ur Culture Indicated? Cult not indicated Vol Urine Centrifuged 10ml (spun) Point of care testing: Point of Care Testing Test Results Negative Imaging Data Extremity x-ray #1: Radiologist's Impression: [address] [address] XRay Report Signed Patient: Lb Quiles MR#: [id number] : 2005 Acct:[id number] Age/Sex: 19 / F Date of Service: 06/28/24 Loc: ED Accession Number: [id number] Procedure: XR hip w pel if done LT 2V Ordering Provider: Tigre Anders D.O. PROCEDURE: XR HIP W PEL IF DONE LT 2V INDICATIONS: pain to hip into pelvis, worse to stand/ambulate/bear weight TECHNIQUE: AP pelvis with lateral view(s) of the left hip(s). COMPARISON: None. FINDINGS: Bones: No fractures or dislocations. Pubic symphysis appears widened measuring 10 mm Pelvic ring appears intact. No suspicious bony lesions. Soft tissues: The visualized bowel gas pattern is normal. No suspicious soft tissue calcifications. IMPRESSION: No acute osseous abnormality. If pain persists with conservative management, consider repeat x-ray in 10-14 days or cross-sectional imaging. Pubic symphysis appears widened measuring approximately 10 mm, correlate with prior trauma. CT scan - abdomen/pelvis: Radiologist's Impression: [place] [address] CT Scan Report Signed Patient: Lb Quiles MR#: [id number] : 2005 Acct:[id number] Age/Sex: 19 / F Date of Service: 06/29/24 Loc: ED Accession Number: [id number] Procedure: CT abdomen pelvis w con Ordering Provider: Tigre Anders D.O. PROCEDURE: CT ABDOMEN PELVIS W CON INDICATIONS: lower abd pain TECHNIQUE: After the administration of intravenous contrast, axial sections acquired from the lung bases to the pubic symphysis. Coronal and sagittal reformats were performed. For radiation dose reduction, the following was used: automated exposure control, adjustment of mA and/or kV according to patient size. COMPARISON: None. FINDINGS: Image quality: Diagnostic. Lower Chest: No significant findings. ABDOMEN: Liver: No solid mass. Gallbladder: No radiopaque gallstones or wall thickening. Biliary ducts: No biliary dilation. Pancreas: No ductal dilation. Spleen: Size is within normal limits. Adrenal Glands: No adrenal nodules. Kidneys and Ureters: No hydronephrosis. No solid mass. No complex renal cystic lesion which requires follow up. Stomach and Bowel: Normal colonic caliber, without significant wall thickening. Normal appendix. Peritoneum: No abnormal intraperitoneal fluid. No free air. Ventral Wall: No significant ventral hernia. Abdominal Nodes: No retroperitoneal or mesenteric adenopathy by size criteria. Vessels: Aorta and inferior vena cava are normal in size. PELVIS: Pelvic Organs: Right ovarian simple appearing cyst measuring 4.3 cm. Bladder: No bladder wall thickening, accounting for underdistention. Pelvic Nodes: No enlarged lymph nodes. Miscellaneous: No inguinal hernias are seen. Bones: No aggressive osseous abnormality. IMPRESSION: 1. No acute findings within the abdomen or pelvis to explain patient's symptoms. 2. Right ovarian simple appearing cyst measuring 4.3 cm. MDM Narrative Medical decision making narrative: 19-year-old female with a past medical history of chronic left hip and low back pain requires it may use of cane at baseline comes into the ED for flare-up of this, states it has been ongoing persistent for approximately 1 year but has not seen orthopedic surgery for this. States he was feeling like the pain was starting to radiate inches at lower abdomen therefore given worsening symptoms decided come into the ED for further evaluation treatment. The lab work unremarkable CT scan only showing right simple ovarian cyst measuring 4.3 cm, x-ray of the hip also showing no acute findings. Patient urinalysis without signs of infection patient was instructed to follow up with Orthopedic surgery and primary care in outpatient setting. Patient will be sent home with symptomatic relief was given strict return precautions verbalized understanding of this and agrees to being discharged home with outpatient follow up Discharge Plan Departure Patient Disposition: Home Clinical Impression: Chronic left hip pain, Abdominal pain Instructions: DI for Hip Pain Activity Restrictions/Additional Instructions: Please follow up with primary care and orthopedic surgery in outpatient setting Please read the discharge instructions sheet carefully and bring all papers to all doctor follow-up visits, as it may contain information that your doctor may want to see. Disease processes change and evolve, if your symptoms worsen or if you develop any new symptoms that are concerning to you please return for evaluation. Your evaluation today does not show any evidence of any life-threatening/serious illnesses requiring admission to the hospital or surgery. Please follow-up with your doctor for re-evaluation in approximately 1 day. Seek immediate medical attention for any worrisome symptoms. *If you do not have a primary care provider please contact the [facility] Resource line at [phone]. They will ask some questions about your medical history and help get you set up with a doctor in the community. Prescriptions: New cyclobenzaprine 10 mg tablet 10 mg PO BEDTIME PRN (Reason: muscle spasm) 7 Days Qty: 7 0RF naproxen [Naprosyn] 500 mg tablet 500 mg PO BID PRN (Reason: pain) 7 Days Qty: 14 0RF No Action lithium carbonate 600 mg capsule 600 mg PO BID Qty: 60 3RF divalproex [Depakote] 250 mg tablet,delayed release (DR/EC) 250 mg PO BID Qty: 60 3RF Abilify Maintena 400 mg suspension,extended rel recon 400 mg IM QMONTH Qty: 1 3RF lithium carbonate 600 mg capsule 600 mg PO BID Qty: 60 0RF trazodone 150 mg tablet 150 mg PO BEDTIME PRN (Reason: insomnia) Qty: 30 0RF testosterone cypionate 200 mg/mL oil 35 mg SUBCUT QWEEK aripiprazole [Abilify] 5 mg tablet 5 mg PO DAILY Qty: 30 11RF sulindac 200 mg tablet 200 mg PO DAILY docusate sodium 100 mg capsule 100 mg PO DAILY albuterol sulfate 90 mcg/actuation HFA aerosol inhaler 2 puff inhalation Q6H PRN (Reason: shortness of breath or wheezing) Qty: 8.5 0RF aripiprazole [Abilify] 5 mg tablet See Rx Instructions .ROUTE .COMPLEX Qty: 30 0RF Rx Instructions: 1T PO QAM and 2T PO QPM divalproex [Depakote] 250 mg tablet,delayed release (DR/EC) 250 mg PO BID Qty: 30 0RF methocarbamol 500 mg tablet 500 mg PO TID PRN (Reason: muscle spasm) Qty: 30 0RF Referrals: Gabe Ayala DO [Primary Care Provider] - Jostin Barreto MD [Physician] - Stand Alone Forms: Patient Portal/API/Survey
--- NOTE | 2024-06-29 00:38 | DI.CT.S_ITS ---
PROCEDURE: CT ABDOMEN PELVIS W CON INDICATIONS: lower abd pain TECHNIQUE: After the administration of intravenous contrast, axial sections acquired from the lung bases to the pubic symphysis. Coronal and sagittal reformats were performed. For radiation dose reduction, the following was used: automated exposure control, adjustment of mA and/or kV according to patient size. COMPARISON: None. FINDINGS: Image quality: Diagnostic. Lower Chest: No significant findings. ABDOMEN: Liver: No solid mass. Gallbladder: No radiopaque gallstones or wall thickening. Biliary ducts: No biliary dilation. Pancreas: No ductal dilation. Spleen: Size is within normal limits. Adrenal Glands: No adrenal nodules. Kidneys and Ureters: No hydronephrosis. No solid mass. No complex renal cystic lesion which requires follow up. Stomach and Bowel: Normal colonic caliber, without significant wall thickening. Normal appendix. Peritoneum: No abnormal intraperitoneal fluid. No free air. Ventral Wall: No significant ventral hernia. Abdominal Nodes: No retroperitoneal or mesenteric adenopathy by size criteria. Vessels: Aorta and inferior vena cava are normal in size. PELVIS: Pelvic Organs: Right ovarian simple appearing cyst measuring 4.3 cm. Bladder: No bladder wall thickening, accounting for underdistention. Pelvic Nodes: No enlarged lymph nodes. Miscellaneous: No inguinal hernias are seen. Bones: No aggressive osseous abnormality. IMPRESSION: 1. No acute findings within the abdomen or pelvis to explain patient's symptoms. 2. Right ovarian simple appearing cyst measuring 4.3 cm. Dictated by: Hammad Patel M.D. on 06/29/2024 at 1:33 Approved by: Hammad Patel M.D. on 06/29/2024 at 1:37
[2024-06-29] MEDS: MORPHINE 4 MG/ML INJ IV (01:26)
[2024-06-29] MEDS: ONDANSETRON 4 MG/2 ML INJ IV (01:26)
--- NOTE | 2024-06-29 01:32 | PC.NURSE ---
Care transferred to Natalie Courtney RN
== END 2024-06-29 02:21 | disposition home or self-care (01) ==
PROVIDERS: Emergency Provider Student in an Organized Health Care Education/Training Program; PCP Family Medicine
DX: M25.552 Pain in left hip (principal); R10.9 Unspecified abdominal pain; N83.291 Other ovarian cyst, right side
CPT/HCPCS: 36415; 73502; 74177; 80053; 81001; 81025; 83690; 85025; 96374; 96375; 99284; J2270; J2405; Q9967

== ENCOUNTER 2024-07-03 15:20 | Emergency (ER) | payer OTHER, SELFPAY ==
[2024-07-03] VITALS (11 sets, daily range): BP systolic 102–115; BP diastolic 56–70; PULSE 90–103; RESP 18; TEMP 36.5; O2SAT 100; BMI 33.2
[2024-07-03 18:03] LABS: Appearance Urine UA CLEAR; Bilirubin Urine UA NEGATIVE (NEGATIVE); Color Urine UA YELLOW; Glucose Urine UA NEGATIVE (Negative); Ketones Urine UA NEGATIVE (NEGATIVE); Leukocyte Esterase Urine UA NEGATIVE (NEGATIVE); Nitrite Urine UA NEGATIVE (Negative); Occult Blood Urine UA 2+ (Negative); Protein Urine UA NEGATIVE (Negative); Urobilinogen Urine UA 0.2 E.U./dL (0.2)
[2024-07-03 18:06] LABS: Pregnancy Test Urine Negative (Negative)
[2024-07-03 18:12] LABS: Bacteria Urine Moderate (10-30); Culture Indicated Urine Specimen Cultured; RBC Urine 5-10/HPF (0-5/HPF); Squamous Epithelial Cell Urine 10-30 /HPF (0-5/HPF); Transitional Epi Cells Urine 1-5/HPF (0-5/HPF); Urine Volume 10mL (spun); WBC Urine 5-10/HPF (0-5/HPF)
--- NOTE | 2024-07-03 19:00 | ED.ABDPAIN ---
HPI - Abdominal Pain General Chief Complaint: Weakness Stated Complaint: In pain all over, fatigue, shaking; poss MS Time Seen by Provider: 07/03/24 19:00 Source: patient Mode of arrival: Ambulatory History of Present Illness HPI narrative: 19-year-old female with history of bipolar marijuana dependence chronic low back pain/left leg pain requires cane at baseline PTSD major depression disorder comes into the ED from home for persistent abdominal pain, states that he has been also experiencing pain ?everywhere since the age of 16, does take cyclobenzaprine and naproxen to help with the symptoms but is now having diffuse tingling sensation over the whole-body sees Dr. Gallegos. Review of records show that patient was seen here by me on 06/29/2024 for flare-up of the left chronic hip pain with radiation to the abdomen. Patient had CT scan that showed a right simple ovarian cyst x-ray negative of the left hip, urinalysis without any signs of infection and was instructed to follow up with Orthopedic surgery in outpatient setting. Patient states his primary care doctor was possibly concern for multiple sclerosis but has not had any lab work imaging and would like some imaging of the brain here. Time of evaluation patient NIH of 0 no focal deficits at baseline. However patient denies any chest pain shortness of breath Related Data Home Medications Medication Instructions Recorded Confirmed testosterone cypionate 200 mg/mL 35 mg SUBCUT QWEEK 11/11/23 04/19/24 intramuscular oil sulindac 200 mg tablet 200 mg PO DAILY chronic pain 02/09/24 04/19/24 docusate sodium 100 mg capsule 100 mg PO DAILY 02/10/24 05/17/24 Previous Rx's Medication Instructions Recorded aripiprazole 5 mg tablet (Abilify) 5 mg PO DAILY #30 tabs 12/08/23 methocarbamol 500 mg tablet 500 mg PO TID PRN muscle spasm #30 01/12/24 tabs albuterol sulfate 90 mcg/actuation 2 puff inhalation Q6H PRN 02/27/24 aerosol inhaler shortness of breath or wheezing #8.5 grams aripiprazole 400 mg intramuscular 400 mg IM QMONTH #1 ea 05/17/24 suspension,extended release (Abilify Maintena) divalproex 250 mg tablet,delayed 250 mg PO BID #60 tabs 05/17/24 release (Depakote) lithium carbonate 600 mg capsule 600 mg PO BID #60 caps 05/17/24 aripiprazole 5 mg tablet (Abilify) See Rx Instructions .Route 05/18/24 .COMPLEX #30 tabs divalproex 250 mg tablet,delayed 250 mg PO BID #30 tabs 05/18/24 release (Depakote) lithium carbonate 600 mg capsule 600 mg PO BID #60 caps 06/02/24 trazodone 150 mg tablet 150 mg PO BEDTIME PRN insomnia #30 06/02/24 tabs cyclobenzaprine 10 mg tablet 10 mg PO BEDTIME PRN muscle spasm 06/29/24 1 week #7 tabs naproxen 500 mg tablet (Naprosyn) 500 mg PO BID PRN pain 1 week #14 06/29/24 tabs diazepam 2 mg tablet (Valium) 2 mg PO BID PRN muscle spasm 3 07/03/24 days #6 tabs Allergies Allergy/AdvReac Type Severity Reaction Status Date / Time testosterone Allergy Intermediate Rash Verified 06/28/24 20:52 [place] And Derivatives Allergy Unknown mouth Verified 03/15/24 10:18 sores, nausea nicotine patch AdvReac Mild Rash Uncoded 04/19/24 13:39 Review of Systems Review of Systems Narrative: General: Diffuse body aches HEENT: Positive headache, denies eye drainage, eye irritation, head trauma, sore throat, voice change Cardiovascular: Denies any chest pain, palpitations, shortness of breath, tachycardia Respiratory: Denies any shortness of breath, cough, wheeze, stridor GI/: Denies any abdominal pain, nausea, vomiting, diarrhea, bright red blood per rectum, melanotic stools, urinary frequency, urinary retention, dysuria, hematuria MSK: Denies any joint pain, muscle pains, swelling Skin: Denies any rashes, lesions, discoloration Neuro: Denies any headache, lightheadedness, dizziness, fainting, weakness Psych: Denies SI/HI Patient History Medical History Inhalant use disorder, mild, abuse Marijuana dependence Vapes nicotine containing substance Alcohol addiction Bipolar 1 disorder Gender dysphoria Bulimia (~2020) History of bipolar disorder (~2017) Anorexia nervosa (~2019) Migraines (~2018) Fractures Chronic back pain (~2014) History of recurrent ear infection (~2014) Painful menstrual periods (~2018) History of self-harm ADHD (~2009) CHAMP (generalized anxiety disorder) (~2009) PTSD (post-traumatic stress disorder) (~2008) Major depression, single episode Family History Father Mental health problem Anxiety PTSD (post-traumatic stress disorder) Depression Substance use Mother Mental health problem Gastroparesis Gastritis History of bipolar disorder Depression History of anorexia nervosa History of bulimia PTSD (post-traumatic stress disorder) Anxiety Sister Mental health problem Autism PTSD (post-traumatic stress disorder) Anxiety ADHD Sister Mental health problem ADHD Grandmother Thyroid disorder History of anorexia nervosa Social History household members: friend(s) Smoking Status: Current every day smoker alcohol intake: former Smoking Status: Current every day smoker tobacco type: vaping alcohol intake frequency: 3 or more drinks per day Alcohol type: hard liquor Exam Narrative Exam Narrative: General: Cooperative, comfortable, well-developed, not in acute distress HEENT: Normocephalic, atraumatic, PERRLA, normal sclera, eyelids normal, Neck: Active full range of motion, atraumatic Chest: Normal to inspection, negative crepitus, no overlying erythema ecchymosis Respiratory: Normal respiratory effort, not in acute respiratory distress, clear to auscultation bilaterally negative cough, wheeze, tachypnea, rhonchi, rales Cardiology: Regular rate rhythm negative gallop, murmur, rubs GI/: Normal to inspection, soft, nonrigid, no tenderness to palpation, exam deferred MSK: Full range of active range of motion of all 4 extremities, atraumatic Skin: No rashes lesions noted Neuro: NIH of 0, no focal deficits, patient walks with a cane at baseline Alert awake oriented x3, moves all 4 extremities spontaneously, cranial nerves intact, able to answer all questions appropriately follows commands appropriately Psych: Cooperative, negative suicidal or homicidal ideations Initial Vital Signs Initial Vital Signs: Vital Signs Temperature 97.7 F 07/03/24 15:31 Pulse Rate 103 H 07/03/24 15:31 Respiratory Rate 18 07/03/24 15:31 Blood Pressure 114/59 L 07/03/24 15:31 Pulse Oximetry 100 07/03/24 15:31 Oxygen Delivery Method Room Air 07/03/24 15:31 Course Orders Ordered: ED Orders 07/03/24 17:34 Test Urine Stat Urinalysis and Microscopic Stat Urine Culture Stat 07/03/24 19:11 CT head/brain wo con Stat 07/03/24 19:22 CBC Auto Diff [Complete Blood Count AUTO DIFF] Stat CMP [Comprehensive Metabolic Panel] Stat Discontinued Medications Dexamethasone (Dexamethasone 10 Mg/Ml Vial) 10 mg IV NOW ONE Stop: 07/03/24 19:12 Last Admin: 07/03/24 19:27 Dose: 10 mg Documented By: Diphenhydramine HCl (Diphenhydramine 50 Mg/Ml Vial) 25 mg IV NOW ONE Stop: 07/03/24 19:12 Last Admin: 07/03/24 19:28 Dose: 25 mg Documented By: Sodium Chloride (Normal Saline 0.9%) 1,000 mls @ 1,000 mls/hr IV BOLUS ONE Stop: 07/03/24 20:10 Last Infusion: 07/03/24 20:19 Dose: Infused Documented By: Admin: 07/03/24 19:29 Dose: 1,000 mls/hr Documented By: Metoclopramide HCl (Metoclopramide 10 Mg/2 Ml Inj) 10 mg IV NOW ONE Stop: 07/03/24 19:12 Last Admin: 07/03/24 19:29 Dose: 10 mg Documented By: Vital Signs Vital signs: Vital Signs - 8 hr 07/03/24 15:31 07/03/24 16:01 07/03/24 16:02 Temperature 97.7 F Pulse Rate 103 H 96 H 95 H Respiratory Rate 18 Blood Pressure 114/59 L Pulse Oximetry 100 100 100 Oxygen Delivery Method Room Air 07/03/24 16:02 07/03/24 16:30 07/03/24 16:30 Temperature Pulse Rate 90 Respiratory Rate Blood Pressure 109/57 L 110/56 L Pulse Oximetry 100 Oxygen Delivery Method 07/03/24 17:00 07/03/24 17:00 07/03/24 17:30 Temperature Pulse Rate 100 H Respiratory Rate Blood Pressure 110/59 L 102/57 L Pulse Oximetry 100 Oxygen Delivery Method 07/03/24 17:30 07/03/24 17:31 07/03/24 19:13 Temperature Pulse Rate 96 H 95 H Respiratory Rate Blood Pressure 109/70 Pulse Oximetry 100 100 Oxygen Delivery Method 07/03/24 19:13 07/03/24 19:30 07/03/24 20:00 Temperature Pulse Rate 94 H 90 90 Respiratory Rate 18 Blood Pressure Pulse Oximetry 100 100 100 Oxygen Delivery Method 07/03/24 20:22 07/03/24 20:22 Temperature Pulse Rate 99 H Respiratory Rate Blood Pressure 115/65 Pulse Oximetry 100 Oxygen Delivery Method MDM - Abdominal Pain Differential Diagnosis Differential diagnosis: Likely other (Electrolyte abnormality, migraine, headache) Lab Data 07/03/24 19:22 07/03/24 19:22 Labs: Lab Results 07/03/24 07/03/24 Range/Units 17:34 19:22 WBC 9.1 (4.5-11.0) X10^3/uL RBC 4.85 (4.0-5.2) X10^6/uL Hgb 14.8 (12.0-16.0) g/dL Hct 43.3 (36-46) % MCV 89.2 (80-100) fL MCH 30.6 (26-34) PG MCHC 34.3 (30-36) % RDW 13.4 (11.6-14.8) % Plt Count 318 (150-400) X10^3/uL Neut % (Auto) 69.6 (50-75) % Lymph % (Auto) 20.6 L (25-40) % [place] % (Auto) 4.5 (3-14) % Eos % (Auto) 4.7 H (2-4) % Baso % (Auto) 0.6 (0-2) % Neut # (Auto) 6300 (4588-0359) /uL Lymph # (Auto) 1900 (2507-9100) /uL [place] # (Auto) 400 (0-900) /uL Eos # (Auto) 400 (0-450) /uL Baso # (Auto) 100 (0-100) /uL Sodium 138 (137-145) mmol/L Potassium 3.3 L (3.4-5.1) mmol/L Chloride 106 (98-107) mmol/L Carbon Dioxide 21 L (22-32) mmol/L BUN 9 (7-17) mg/dL Creatinine 1.03 (0.52-1.04) mg/dL Estimated GFR > 60 (>60) mL/min BUN/Creatinine Ratio 8.7 (6-22) Glucose 85 (70-100) mg/dL Calcium 9.4 (8.4-10.2) mg/dL Total Bilirubin 0.5 (0.2-1.3) mg/dL AST 28 (14-36) IU/L ALT 28 (<35) IU/L Alkaline Phosphatase 78 (38-126) U/L Total Protein 7.0 (6.3-8.2) g/dL Albumin 4.5 (3.5-5.0) g/dL Globulin 2.5 (1.7-4.1) g/dL Albumin/Globulin Ratio 1.8 (1.0-2.8) Urine Color Yellow Urine Appearance Clear Urine pH 7.0 (4.5-8.0) Ur Specific [place] 1.010 (1.000-1.035) Urine Protein Negative (Negative) Urine Glucose (UA) Negative (Negative) g/dL Urine Ketones Negative (NEGATIVE) Urine Occult Blood 2+ H (Negative) Urine Nitrate Negative (Negative) Urine Bilirubin Negative (NEGATIVE) Urine Urobilinogen 0.2 (0.2) E.U./dL Ur Leukocyte Esterase Negative (NEGATIVE) Urine RBC 5-10/hpf H (0-5/HPF) Urine WBC 5-10/hpf H (0-5/HPF) Ur Squamous Epith Cells 10-30 /hpf H D (0-5/HPF) Ur Transition Epith Cell 1-5/hpf (0-5/HPF) Urine Bacteria Moderate (10-30) H (None) Ur Culture Indicated? Specimen cultured Vol Urine Centrifuged 10ml (spun) Urine Test Negative (Negative) Imaging Data CT scan - head: Radiologist's Impression: [address] [address] [address] Scan Report Signed Patient: Lb Quilse MR#: [id number] : 2005 Acct:[id number] Age/Sex: 19 / F Date of Service: 07/03/24 Loc: ED Accession Number: [id number] Procedure: CT head/brain wo con Ordering Provider: Tigre Anders D.O. PROCEDURE: CT HEAD/BRAIN WO CON INDICATIONS: headache TECHNIQUE: Noncontrast 4.5 mm thick angled axial sections acquired from the foramen magnum to the vertex, with coronal and sagittal reformats. For radiation dose reduction, the following was used: automated exposure control, adjustment of mA and/or kV according to patient size. COMPARISON: None. FINDINGS: Image quality: Diagnostic. CSF spaces: Basal cisterns are patent. No extra-axial fluid collections. Ventricles are normal in size and shape. Brain: No midline shift. No intracranial masses or hemorrhage. [place]-white matter interface is normal. Skull and face: Calvarium and visualized facial bones are intact, without suspicious lesions. Sinuses: Visualized sinuses and mastoids are clear. IMPRESSION: No acute intracranial pathology. MDM Narrative Medical decision making narrative: 19-year-old female with a past medical history of bipolar type 1, chronic low back pain with leg pain chronically using cane, headache, intermittent ?diffuse body pains for the past 3 years comes into the ED from home for a ?flare-up of this patient was seen here on 06/29/2024 for abdominal pain had CT scan which did not show any acute findings, patient presenting stating this is not the concern now having diffuse body aches pains tingling but denies any visual disturbances chest pain shortness of breath at time evaluation NIH of 0, no focal deficits noted. Patient states that he was told that he might have multiple sclerosis by his primary care doctor but has not been worked up for this and is requesting imaging of his head. Patient had lab work CT scan performed here without any acute findings. Lab work unremarkable, urinalysis not consistent with acute urinary tract infection, patient will be instructed to follow up with primary care for continued evaluation treatment of symptoms will be sent home with symptomatic medications, strict return precautions given verbalized understanding of this and agrees to being discharged home with outpatient follow up Discharge Plan Departure Patient Disposition: Home Clinical Impression: Complaints of total body pain Activity Restrictions/Additional Instructions: Please follow up with your primary care doctor for continued evaluation treatment of your symptoms Please read the discharge instructions sheet carefully and bring all papers to all doctor follow-up visits, as it may contain information that your doctor may want to see. Disease processes change and evolve, if your symptoms worsen or if you develop any new symptoms that are concerning to you please return for evaluation. Your evaluation today does not show any evidence of any life-threatening/serious illnesses requiring admission to the hospital or surgery. Please follow-up with your doctor for re-evaluation in approximately 1 day. Seek immediate medical attention for any worrisome symptoms. *If you do not have a primary care provider please contact the [facility] Resource line at [phone]. They will ask some questions about your medical history and help get you set up with a doctor in the community. Prescriptions: New diazepam [Valium] 2 mg tablet 2 mg PO BID PRN (Reason: muscle spasm) 3 Days Qty: 6 0RF No Action lithium carbonate 600 mg capsule 600 mg PO BID Qty: 60 3RF divalproex [Depakote] 250 mg tablet,delayed release (DR/EC) 250 mg PO BID Qty: 60 3RF Abilify Maintena 400 mg suspension,extended rel recon 400 mg IM QMONTH Qty: 1 3RF lithium carbonate 600 mg capsule 600 mg PO BID Qty: 60 0RF trazodone 150 mg tablet 150 mg PO BEDTIME PRN (Reason: insomnia) Qty: 30 0RF testosterone cypionate 200 mg/mL oil 35 mg SUBCUT QWEEK aripiprazole [Abilify] 5 mg tablet 5 mg PO DAILY Qty: 30 11RF sulindac 200 mg tablet 200 mg PO DAILY docusate sodium 100 mg capsule 100 mg PO DAILY albuterol sulfate 90 mcg/actuation HFA aerosol inhaler 2 puff inhalation Q6H PRN (Reason: shortness of breath or wheezing) Qty: 8.5 0RF aripiprazole [Abilify] 5 mg tablet See Rx Instructions .ROUTE .COMPLEX Qty: 30 0RF Rx Instructions: 1T PO QAM and 2T PO QPM divalproex [Depakote] 250 mg tablet,delayed release (DR/EC) 250 mg PO BID Qty: 30 0RF methocarbamol 500 mg tablet 500 mg PO TID PRN (Reason: muscle spasm) Qty: 30 0RF cyclobenzaprine 10 mg tablet 10 mg PO BEDTIME PRN (Reason: muscle spasm) 7 Days Qty: 7 0RF naproxen [Naprosyn] 500 mg tablet 500 mg PO BID PRN (Reason: pain) 7 Days Qty: 14 0RF Referrals: Gabe Ayala DO [Primary Care Provider] - Stand Alone Forms: Patient Portal/API/Survey
--- NOTE | 2024-07-03 19:11 | DI.CT.S_ITS ---
PROCEDURE: CT HEAD/BRAIN WO CON INDICATIONS: headache TECHNIQUE: Noncontrast 4.5 mm thick angled axial sections acquired from the foramen magnum to the vertex, with coronal and sagittal reformats. For radiation dose reduction, the following was used: automated exposure control, adjustment of mA and/or kV according to patient size. COMPARISON: None. FINDINGS: Image quality: Diagnostic. CSF spaces: Basal cisterns are patent. No extra-axial fluid collections. Ventricles are normal in size and shape. Brain: No midline shift. No intracranial masses or hemorrhage. [place]-white matter interface is normal. Skull and face: Calvarium and visualized facial bones are intact, without suspicious lesions. Sinuses: Visualized sinuses and mastoids are clear. IMPRESSION: No acute intracranial pathology. Dictated by: Shaun Nicholas M.D. on 07/03/2024 at 19:55 Approved by: Shaun Nicholas M.D. on 07/03/2024 at 19:56
[2024-07-03] MEDS: DEXAMETHASONE 10 MG/ML VIAL IV (19:27)
[2024-07-03] MEDS: diphenhydrAMINE 50 MG/ML VIAL 25 MG IV (19:28)
[2024-07-03] MEDS: SODIUM CHLORIDE 0.9% 1,000 ML 1000 ML IV (19:29)
[2024-07-03] MEDS: METOCLOPRAMIDE 10 MG/2 ML INJ IV (19:29)
[2024-07-03 19:33] LABS: Add Manual Diff / Slide Review NO; Basophils Absolute Auto 100 /uL (0-100); Basophils Percent Auto 0.6 % (0-2); Eosinophils Absolute Auto 400 /uL (0-450); Eosinophils Percent Auto 4.7 % (2-4); Hematocrit 43.3 % (36-46); Hemoglobin 14.8 g/dL (12.0-16.0); Lymphocytes Absolute Auto 1900 /uL (1100-4500); Lymphocytes Percent Auto 20.6 % (25-40); Mean Corpuscular HGB Conc 34.3 % (30-36); Mean Corpuscular Hemoglobin 30.6 PG (26-34); Mean Corpuscular Volume 89.2 fL (80-100); Monocytes Absolute Auto 400 /uL (0-900); Monocytes Percent Auto 4.5 % (3-14); Neutrophils Absolute Auto 6300 /uL (1500-7000); Neutrophils Percent Auto 69.6 % (50-75); Platelet Count 318 X10^3/uL (150-400); Red Blood Cell Count 4.85 X10^6/uL (4.0-5.2); Red Cell Distribution Width 13.4 % (11.6-14.8); White Blood Cell Count 9.1 X10^3/uL (4.5-11.0)
[2024-07-03 19:41] LABS: Alanine Aminotransferase 28 IU/L (<35); Albumin 4.5 g/dL (3.5-5.0); Albumin Globulin Ratio 1.8 (1.0-2.8); Alkaline Phosphatase 78 U/L (38-126); Aspartate Aminotransferase 28 IU/L (14-36); BUN Creatinine Ratio 8.7 (6-22); Bilirubin Total 0.5 mg/dL (0.2-1.3); Blood Urea Nitrogen 9 mg/dL (7-17); Calcium 9.4 mg/dL (8.4-10.2); Carbon Dioxide 21 mmol/L (22-32); Chloride 106 mmol/L (98-107); Estimated Glomerular Filt Rate > 60 mL/min (>60); Globulin 2.5 g/dL (1.7-4.1); Glucose 85 mg/dL (70-100); HEMOLYSIS < 15 (0-50); Potassium 3.3 mmol/L (3.4-5.1); Sodium 138 mmol/L (137-145)
== END 2024-07-03 20:55 | disposition home or self-care (01) ==
PROVIDERS: Emergency Medicine; Emergency Provider Student in an Organized Health Care Education/Training Program; PCP Family Medicine
DX: R51.9 Headache, unspecified (principal); R20.2 Paresthesia of skin; R10.9 Unspecified abdominal pain; M54.50 Low back pain, unspecified; G89.29 Other chronic pain
CPT/HCPCS: 36415; 70450; 80053; 81001; 81025; 85025; 87086; 96361; 96374; 96375; 99284; J1100; J1200; J2765

== ENCOUNTER → 2024-07-20 11:21 | Outpatient (CLI) | payer OTHER, SELFPAY ==
[2024-07-21 03:40] LABS: Valproic Acid (Depakene) Total 35 ug/mL (50-100)
== END ==
LOC: LAB 11:22
PROVIDERS: PCP Family Medicine; Referring Provider Student in an Organized Health Care Education/Training Program; Visit Provider Student in an Organized Health Care Education/Training Program
DX: F31.9 Bipolar disorder, unspecified (principal)
CPT/HCPCS: 36415; 80164

== ENCOUNTER → 2024-07-22 09:11 | Outpatient (CLI) | payer OTHER, SELFPAY ==
--- NOTE | 2024-07-22 09:13 | DI.RAD.S_ITS ---
PROCEDURE: XR HIP W PEL IF DONE NIKHIL MIN 4V INDICATIONS: low back pain, hip pain TECHNIQUE: AP pelvis with lateral view(s) of the bilateral hip(s). [facility], 20:40. FINDINGS: Bones: No fractures or dislocations. Moderate diastasis of the pubic symphysis. Pelvic ring appears otherwise intact. No suspicious bony lesions. Soft tissues: The visualized bowel gas pattern is normal. No suspicious soft tissue calcifications. IMPRESSION: No evidence of acute osseous abnormality. Moderate diastasis of the pubic symphysis noted. Dictated by: Isaiah Fischer M.D. on 07/22/2024 at 19:36 Approved by: Isaiah Fischer M.D. on 07/22/2024 at 19:37
[2024-07-22 10:31] LABS: Erythrocyte Sedimentation Rate 3 MM/HR (0-20)
[2024-07-22 10:37] LABS: C-Reactive Protein Quant 0.5 mg/dL (<1.0)
[2024-07-22 10:43] LABS: Rheumatoid Factor < 8.6 IU/mL (<12.0)
[2024-07-22 10:45] LABS: Lithium 3.1 mmol/L (0.6-1.2)
[2024-07-23 23:09] LABS: CCP Antibodies IgG/IgA 5 units (0-19)
[2024-07-26 14:35] LABS: ANA Screen, IFA Negative (.)
== END ==
PROVIDERS: PCP Family Medicine; Referring Provider Family Medicine; Visit Provider Family Medicine
DX: M25.50 Pain in unspecified joint (principal); R25.1 Tremor, unspecified; M54.50 Low back pain, unspecified; M25.559 Pain in unspecified hip; E05.90 Thyrotoxicosis, unspecified without thyrotoxic crisis or storm; S33.30XA Dislocation of unspecified parts of lumbar spine and pelvis, initial encounter
CPT/HCPCS: 36415; 73522; 80178; 84443; 85651; 86038; 86140; 86200; 86430

== ENCOUNTER → 2024-07-26 13:17 | Outpatient (CLI) | payer OTHER, SELFPAY ==
[2024-07-26 14:01] LABS: Lithium 0.7 mmol/L (0.6-1.2)
[2024-07-26 14:04] LABS: BUN Creatinine Ratio 7.9 (6-22); Blood Urea Nitrogen 6 mg/dL (7-17); Calcium 10.2 mg/dL (8.4-10.2); Carbon Dioxide 17 mmol/L (22-32); Chloride 111 mmol/L (98-107); Estimated Glomerular Filt Rate > 60 mL/min (>60); Glucose 114 mg/dL (70-100); HEMOLYSIS < 15 (0-50); Potassium 3.7 mmol/L (3.4-5.1); Sodium 140 mmol/L (137-145)
[2024-07-26 14:20] LABS: Free T4, Direct Thyroxine 0.73 ng/dL (0.78-2.19)
[2024-07-27 18:08] LABS: Anti Thyroglobulin Antibody <1.0 IU/mL (0.0-0.9); Thyroid Peroxidase Antibodies 14 IU/mL (0-34)
== END ==
PROVIDERS: PCP Family Medicine; Referring Provider Student in an Organized Health Care Education/Training Program; Visit Provider Student in an Organized Health Care Education/Training Program
DX: F31.9 Bipolar disorder, unspecified (principal); E03.9 Hypothyroidism, unspecified; F41.1 Generalized anxiety disorder; F90.9 Attention-deficit hyperactivity disorder, unspecified type; F64.9 Gender identity disorder, unspecified; Z79.899 Other long term (current) drug therapy
CPT/HCPCS: 36415; 80048; 80178; 84439; 84481; 86376; 86800; 99214

== ENCOUNTER → 2024-08-09 15:25 | Outpatient (CLI) | payer OTHER, SELFPAY ==
--- NOTE | 2024-08-09 15:26 | DI.US.S_ITS ---
PROCEDURE: US PELVIC COMPLETE INDICATIONS: pelvic pain TECHNIQUE: Real-time scanning was performed of the pelvic organs, with image documentation. Additional endovaginal scanning was necessary due to incomplete visualization of the adnexal and endometrial structures by transabdominal scanning. COMPARISON: [facility], , US PELVIC COMPLETE, 12/04/2023, 3:29. FINDINGS: Uterus: Uterus is anteverted and normal in size at 7.7 x 2.9 x 4.3 cm. The myometrium is homogeneous. The endometrium measures 8 mm combined thickness. No endometrial mass or fluid. Ovaries: The right ovary measures 3.1 x 2.6 x 1.7 cm. The left ovary measures 5.4 x 3.3 x 2.7 cm. Simple cyst is seen in left ovary measures 4.8 x 3.4 x 2.9 cm in size. Less than 12 follicles can be seen in each ovary. No adnexal masses are seen. Other: No pathologic free abdominal or pelvic fluid. IMPRESSION: 1. Simple cyst is seen in left ovary as above. No solid appearing ovarian lesion. No evidence of ovarian torsion. 2. No endometrial mass or fluid. We strive to produce accurate, complete, and clear reports of imaging services. To assist us in improving patient care, this report was composed using standard report templates and voice recognition software. Therefore, it may contain abnormal punctuation, insertions and/or omissions. Occasional wrong-word or sound-alike substitutions may occur. Though we review the report and make efforts to correct it, we do recommend that the report be read carefully in proper context to recognize any text inaccuracies. Dictated by: Seng Escobar M.D. on 08/09/2024 at 17:36 Approved by: Seng Escobar M.D. on 08/09/2024 at 17:38
--- NOTE | 2024-08-09 15:26 | DI.MRI.S_ITS ---
PROCEDURE: MR LUMBAR SPINE WO CON INDICATIONS: radicular LBP TECHNIQUE: Noncontrast sagittal T1 spin echo and T2 fast echo, sagittal STIR, and T2 fast spin echo through the lumbar spine. In cases with scoliosis, additional coronal T2 fast spin echo may be performed. COMPARISON: [facility], CR, XR LUMBAR SPINE 2-3V, 01/12/2024, 22:15. FINDINGS: Image quality: Excellent. Alignment and Curvature: There is normal bony alignment. Bone Marrow: Marrow is of normal overall signal. No acute vertebral body compression fractures. Spinal Cord: Conus medullaris terminates at the L1-L2 level. Visualized cord demonstrates normal signal and size. Paraspinous Soft Tissues: No paravertebral masses. T11-T12: Annulus tear plus focal [id number] left paracentral disc protrusion mildly indenting on the left ventral cord. Reference sagittal image 9 of series 2 and axial image 3 of series 6. No central canal stenosis. No foraminal stenosis. T12-L1: Normal appearance. L1-L2: Normal appearance. L2-L3: Minimal disc bulge. No canal stenosis or foraminal stenosis. L3-L4: Disc bulge. No canal stenosis or foraminal stenosis. L4-L5: Disc bulge. Early facet hypertrophy. No canal stenosis or foraminal stenosis. L5-S1: No canal stenosis or foraminal stenosis. IMPRESSION: 1. There is a [id number] focal left paracentral disc protrusion at T11-T12 mildly indenting on the left ventral cord. There is no canal stenosis or foraminal stenosis. 2. No canal stenosis or foraminal stenosis at other levels. 3. Multilevel disc bulges. 4. Early facet arthropathy at L4-L5. Dictated by: Joshua Brooks M.D. on 08/10/2024 at 10:22 Approved by: Joshua Brooks M.D. on 08/10/2024 at 10:25
== END ==
PROVIDERS: PCP Family Medicine; Referring Provider Family Medicine; Visit Provider Family Medicine
DX: N83.292 Other ovarian cyst, left side (principal); M54.41 Lumbago with sciatica, right side; M54.42 Lumbago with sciatica, left side; R10.2 Pelvic and perineal pain; R11.0 Nausea; F31.9 Bipolar disorder, unspecified; F41.1 Generalized anxiety disorder; F90.9 Attention-deficit hyperactivity disorder, unspecified type; F64.9 Gender identity disorder, unspecified
CPT/HCPCS: 72148; 76856; 99214

== ENCOUNTER 2024-08-31 16:20 | Emergency (ER) | payer OTHER, SELFPAY ==
[2024-08-31] VITALS (20 sets, daily range): BP systolic 97–121; BP diastolic 48–68; PULSE 89–105; RESP 16–25; TEMP 37.3; O2SAT 96–100; BMI 31.2
--- NOTE | 2024-08-31 16:48 | EKG_ITS ---
[address] [address] Test Date: 2024-08-31 Pat Name: Lb Quiles Department: Room: Gender: Female Rn Surgery Icu: RAMU : 2005 Requested By: Order Number: [id number] Reading MD: Tigre Vaca Measurements Intervals [place] Rate: 100 P: 49 CO: 126 QRS: 75 QRSD: 80 T: 10 QT: 336 QTc: 433 Interpretive Statements Normal sinus rhythm Electronically Signed On 09-01-2024 17:39:52 PDT by Tigre Vaca
--- NOTE | 2024-08-31 17:14 | PC.NURSE ---
EGG GRADER Note: Patient changed into scrubs and non-skid socks. Belongings bagged, backpack locked up.
[2024-08-31 17:17] LABS: Ur Creatinine Normal (Normal)
[2024-08-31 17:18] LABS: UR Morphine/Opiate cutoff 300 Negative (Negative); Ur Specific Gravity Normal (Normal); Urine Amphetamines Negative (Negative); Urine Barbiturates Negative (Negative); Urine Benzodiazepines Negative (Negative); Urine Cocaine Negative (Negative); Urine MDMA Negative (Negative); Urine Methadone Negative (Negative); Urine Methamphetamines Negative (Negative); Urine Oxycodone Negative (Negative); Urine Phencyclidine Negative (Negative); Urine Tetrahydrocannabinol Positive (Negative); Urine Tricyclic Antidepressant Negative (Negative); Urine pH Normal (Normal)
[2024-08-31 17:20] LABS: COVID19 -Nasal RAPID Negative (Negative)
[2024-08-31 17:31] LABS: Add Manual Diff / Slide Review NO; Basophils Absolute Auto 100 /uL (0-100); Basophils Percent Auto 0.9 % (0-2); Eosinophils Absolute Auto 400 /uL (0-450); Eosinophils Percent Auto 5.3 % (2-4); Hemoglobin 13.7 g/dL (12.0-16.0); Lymphocytes Absolute Auto 2400 /uL (1100-4500); Lymphocytes Percent Auto 31.2 % (25-40); Mean Corpuscular HGB Conc 33.5 % (30-36); Mean Corpuscular Hemoglobin 30.9 PG (26-34); Mean Corpuscular Volume 92.2 fL (80-100); Monocytes Absolute Auto 400 /uL (0-900); Monocytes Percent Auto 5.3 % (3-14); Neutrophils Absolute Auto 4500 /uL (1500-7000); Neutrophils Percent Auto 57.3 % (50-75); Platelet Count 211 X10^3/uL (150-400); Red Blood Cell Count 4.45 X10^6/uL (4.0-5.2); Red Cell Distribution Width 14.9 % (11.6-14.8); White Blood Cell Count 7.8 X10^3/uL (4.5-11.0)
[2024-08-31] MEDS: ACTIVATED CHARCOAL 50 GM/240 ML 72 GM PO (17:32)
[2024-08-31 17:47] LABS: Acetaminophen < 10 ug/mL (10-30); Alanine Aminotransferase 41 IU/L (<35); Albumin 4.3 g/dL (3.5-5.0); Alkaline Phosphatase 57 U/L (38-126); Ammonia (NH3) 26 umol/L (9-30); Aspartate Aminotransferase 33 IU/L (14-36); BUN Creatinine Ratio 11.9 (6-22); Bilirubin Total 0.3 mg/dL (0.2-1.3); Blood Urea Nitrogen 13 mg/dL (7-17); Carbon Dioxide 19 mmol/L (22-32); Chloride 113 mmol/L (98-107); Estimated Glomerular Filt Rate > 60 mL/min (>60); Ethanol (ETOH) < 10 mg/dL; Globulin 2.2 g/dL (1.7-4.1); Glucose 109 mg/dL (70-99); HEMOLYSIS < 15 (0-50); Salicylate < 1.0 mg/dL (<20); Sodium 144 mmol/L (137-145); Total Protein 6.5 g/dL (6.3-8.2)
[2024-08-31 18:08] LABS: Free T4, Direct Thyroxine 0.77 ng/dL (0.78-2.19)
--- NOTE | 2024-08-31 18:17 | ED_ITS ---
HPI - Psych General Chief Complaint: Psychiatric Symptoms Stated Complaint: SI Time Seen by Provider: 08/31/24 18:17 Source: patient Mode of arrival: Ambulatory Related Data Home Medications Medication Instructions Recorded Confirmed prednisone 20 mg tablet mg PO 07/22/24 07/22/24 testosterone 2 pump topical DAILY 08/31/24 08/31/24 Previous Rx's Medication Instructions Recorded aripiprazole 5 mg tablet (Abilify) 5 mg PO DAILY #30 tabs 12/08/23 albuterol sulfate 90 mcg/actuation 2 puff inhalation Q6H PRN 02/27/24 aerosol inhaler shortness of breath or wheezing #8.5 grams aripiprazole 400 mg intramuscular 400 mg IM QMONTH #1 ea 05/17/24 suspension,extended release (Abilify Maintena) topiramate 100 mg tablet (Topamax) 100 mg PO BID #60 tabs 07/08/24 aripiprazole 10 mg tablet 10 mg PO BEDTIME #30 tabs 07/12/24 ondansetron 4 mg disintegrating 4 mg PO Q8H PRN nausea and 07/22/24 tablet vomiting #30 tabs levothyroxine 50 mcg tablet 50 mcg PO DAILY #30 tabs 07/26/24 divalproex 500 mg tablet,delayed 500 mg PO BID #60 tabs 08/09/24 release quetiapine 100 mg tablet 100 mg PO BEDTIME PRN anxiety #30 08/09/24 tabs Allergies Allergy/AdvReac Type Severity Reaction Status Date / Time testosterone Allergy Intermediate Rash Verified 07/22/24 08:16 adhesive Allergy Mild Rash Verified 08/31/24 16:27 [place] And Derivatives Allergy Unknown mouth Verified 07/22/24 08:16 sores, nausea nicotine patch AdvReac Mild Rash Uncoded 07/22/24 08:16 Patient History Medical History (Updated 07/26/24 @ 20:20 by Gabe Ayala DO) Hypothyroidism [place] use Cyst of ovary Primary dysmenorrhea Abnormal uterine bleeding (AUB) Inhalant use disorder, mild, abuse Marijuana dependence Vapes nicotine containing substance Alcohol addiction Bipolar 1 disorder Gender dysphoria Bulimia (~2020) History of bipolar disorder (~2017) Anorexia nervosa (~2019) Migraines (~2018) Fractures Chronic back pain (~2014) History of recurrent ear infection (~2014) Painful menstrual periods (~2018) History of self-harm ADHD (~2009) CHAMP (generalized anxiety disorder) (~2009) PTSD (post-traumatic stress disorder) (~2008) Major depression, single episode Family History (Updated 07/16/24 @ 15:33 by Soheila Brandon MA) Father Mental health problem Anxiety PTSD (post-traumatic stress disorder) Depression Substance use Mother Mental health problem Gastroparesis Gastritis History of bipolar disorder Depression History of anorexia nervosa History of bulimia PTSD (post-traumatic stress disorder) Anxiety Sister Mental health problem Autism PTSD (post-traumatic stress disorder) Anxiety ADHD Sister Mental health problem ADHD Grandmother Thyroid disorder History of anorexia nervosa Social History household members: friend(s) Smoking Status: Current every day smoker alcohol intake: former Smoking Status: Current every day smoker tobacco type: vaping alcohol intake frequency: 3 or more drinks per day Alcohol type: hard liquor Exam Initial Vital Signs Initial Vital Signs: Vital Signs Temperature 99.2 F 08/31/24 16:31 Pulse Rate 105 H 08/31/24 16:31 Respiratory Rate 16 08/31/24 16:31 Blood Pressure 121/68 08/31/24 16:31 Pulse Oximetry 98 08/31/24 16:31 Oxygen Delivery Method Room Air 08/31/24 16:31 Course Orders Ordered: ED Orders 08/31/24 16:36 Consult to PHYSICAL LABORATORY ASSISTANT - [employer] Stat 08/31/24 16:44 Urine Drug Screen, Rapid Stat 08/31/24 16:47 EKG-12 Lead Stat 08/31/24 16:48 COVID19 -Nasal RAPID Stat 08/31/24 17:20 Acetaminophen Stat Ammonia (NH3) Stat Complete Blood Count AUTO DIFF Stat Comprehensive Metabolic Panel Stat Ethanol (ETOH) Stat Free T4, Direct Thyroxine Stat Salicylate Stat Thyroid Stimulating Hormone Stat Valproic Acid (Depakene) Total Stat 08/31/24 18:47 EKG-12 Lead Stat Discontinued Medications Charcoal (Activated Charcoal 50 Gm/240 Ml) 72 gm PO NOW ONE Stop: 08/31/24 17:31 Last Admin: 08/31/24 17:32 Dose: 72 gm Documented By: MPO Vital Signs Vital signs: Vital Signs - 8 hr 08/31/24 16:31 08/31/24 17:04 08/31/24 17:04 Temperature 99.2 F Pulse Rate 105 H 97 H Respiratory Rate 16 23 Blood Pressure 121/68 118/56 L Pulse Oximetry 98 97 Oxygen Delivery Method Room Air Room Air 08/31/24 17:30 08/31/24 17:33 08/31/24 18:00 Temperature Pulse Rate 94 H 95 H 99 H Respiratory Rate 18 22 22 Blood Pressure 118/56 L 107/54 L 114/60 Pulse Oximetry 100 100 99 Oxygen Delivery Method Room Air Room Air 08/31/24 18:01 08/31/24 18:15 08/31/24 18:30 Temperature Pulse Rate 100 H 103 H Respiratory Rate 16 22 Blood Pressure 114/60 106/56 L Pulse Oximetry 99 100 Oxygen Delivery Method Room Air 08/31/24 18:30 08/31/24 18:45 Temperature Pulse Rate 98 H 100 H Respiratory Rate 25 H 24 Blood Pressure Pulse Oximetry 99 98 Oxygen Delivery Method MDM - Psych Lab Data 08/31/24 17:20 08/31/24 17:20 Labs: Lab Results 08/31/24 08/31/24 08/31/24 Range/Units 16:44 16:48 17:20 WBC 7.8 (4.5-11.0) X10^3/uL RBC 4.45 (4.0-5.2) X10^6/uL Hgb 13.7 (12.0-16.0) g/dL Hct 41.0 (36-46) % MCV 92.2 (80-100) fL MCH 30.9 (26-34) PG MCHC 33.5 (30-36) % RDW 14.9 H (11.6-14.8) % Plt Count 211 (150-400) X10^3/uL Neut % (Auto) 57.3 (50-75) % Lymph % (Auto) 31.2 (25-40) % [place] % (Auto) 5.3 (3-14) % Eos % (Auto) 5.3 H (2-4) % Baso % (Auto) 0.9 (0-2) % Neut # (Auto) 4500 (6997-6080) /uL Lymph # (Auto) 2400 (7190-8290) /uL [place] # (Auto) 400 (0-900) /uL Eos # (Auto) 400 (0-450) /uL Baso # (Auto) 100 (0-100) /uL Sodium 144 (137-145) mmol/L Potassium 4.0 (3.4-5.1) mmol/L Chloride 113 H (98-107) mmol/L Carbon Dioxide 19 L (22-32) mmol/L BUN 13 (7-17) mg/dL Creatinine 1.09 H (0.52-1.04) mg/dL Estimated GFR > 60 (>60) mL/min BUN/Creatinine Ratio 11.9 (6-22) Glucose 109 H (70-99) mg/dL Calcium 9.0 (8.4-10.2) mg/dL Total Bilirubin 0.3 (0.2-1.3) mg/dL AST 33 (14-36) IU/L ALT 41 H (<35) IU/L Alkaline Phosphatase 57 (38-126) U/L Ammonia 26 (9-30) umol/L Total Protein 6.5 (6.3-8.2) g/dL Albumin 4.3 (3.5-5.0) g/dL Globulin 2.2 (1.7-4.1) g/dL Albumin/Globulin Ratio 2.0 (1.0-2.8) TSH 0.711 (0.47-4.68) uIU/mL Free T4 0.77 L (0.78-2.19) ng/dL Salicylates < 1.0 (<20) mg/dL U Opiates 300ng/mL cut Negative (Negative) Ur Oxycodone Screen Negative (Negative) Urine Methadone Screen Negative (Negative) Acetaminophen < 10 (10-30) ug/mL Ur Barbiturates Screen Negative (Negative) U Tricyclic Antidepress Negative (Negative) Ur Phencyclidine Scrn Negative (Negative) Ur Amphetamines Screen Negative (Negative) U Methamphetamines Scrn Negative (Negative) Ur MDMA Scrn (Ecstasy) Negative (Negative) U Benzodiazepines Scrn Negative (Negative) Urine Cocaine Screen Negative (Negative) U Marijuana (THC) Screen Positive H (Negative) Urine pH Normal (Normal) Urine Specific [place] Normal (Normal) Ethyl Alcohol < 10 ( - 10) mg/dL Ur Creatinine Normal (Normal) SARS-CoV-2 (PCR) Negative (Negative) Urine Dip Bedside Urine Glucose Negative Bedside Urine Bilirubin - Negative Bedside Urine Ketone - Negative Urine Specific [place] 1.015 Bedside Urine Occult Blood - Negative Bedside Urine pH 5.5 Bedside Urine Protein - Negative Bedside Urine Urobilinogen - Negative Bedside Urine Nitrite - Negative Bedside Urine Leukocytes - Negative Esterase Discharge Plan Departure Prescriptions: No Action aripiprazole 10 mg tablet 10 mg PO BEDTIME Qty: 30 0RF Abilify Maintena 400 mg suspension,extended rel recon 400 mg IM QMONTH Qty: 1 3RF quetiapine 100 mg tablet 100 mg PO BEDTIME PRN (Reason: anxiety) Qty: 30 2RF divalproex 500 mg tablet,delayed release (DR/EC) 500 mg PO BID Qty: 60 3RF levothyroxine 50 mcg tablet 50 mcg PO DAILY Qty: 30 11RF aripiprazole [Abilify] 5 mg tablet 5 mg PO DAILY Qty: 30 11RF topiramate [Topamax] 100 mg tablet 100 mg PO BID Qty: 60 0RF Rx Instructions: thru outside provider prednisone 20 mg tablet PO ondansetron 4 mg tablet,disintegrating 4 mg PO Q8H PRN (Reason: nausea and vomiting) Qty: 30 4RF albuterol sulfate 90 mcg/actuation HFA aerosol inhaler 2 puff inhalation Q6H PRN (Reason: shortness of breath or wheezing) Qty: 8.5 0RF testosterone 20.25 mg/1.25 gram (1.62 %) gel in metered-dose pump 2 pump topical DAILY Referrals: Gabe Ayala DO [Primary Care Provider] -
[2024-08-31 18:22] LABS: Thyroid Stimulating Hormone 0.711 uIU/mL (0.47-4.68)
--- NOTE | 2024-08-31 18:22 | PC.NURSE ---
Addendum entered by Sukhwinder Britton R.N. 08/31/24 18:58: EKG performed at bedside by nurse. Addendum entered by Sukhwinder Britton R.N. 08/31/24 18:30: Patient vomiting, 100mL black emesis. Original Note: Assumed patient care for 1:1 with patient. Introduced myself, encouraged patient to call with any needs. Patient is lying in bed with a friend at bedside. Patient is drinking charcoal at this time, resting, calm. Call light w/in reach.
--- NOTE | 2024-08-31 18:39 | CM.SWNOTE ---
ED EXECUTIVE ASST Assessment EXECUTIVE ASST - Supervisor Cereal Assessment Document 08/31/24 18:14 LN (Rec: 08/31/24 18:38 LN [id number]) EXECUTIVE ASST/Supervisor Cereal Assessment Time Spent with Patient Start date 08/31/24 Visit Start Time 17:55 End date 08/31/24 Visit End Time 18:20 Total time Care Management spent on 25 minutes patient visit-in minutes Mental Health Screening Include Onset, Duration, Intensity Presenting Problem Patient presents to ED on foot with friend after suicide attempt 15 minutes prior. Patient overdosed on 30 tablets of 500 mg Depakote XR and 10 tablets of 300 mg Gabapentin. Patient states they told their friend after the overdose. Patient states that they felt useless and did not feel like they could reach out before taking the pills. Patient is voluntary for inpatient hospitalization upon medical clearance. Precipitating Event(s) Patient endorses they have been very stressed, experiencing SI for the last few weeks. Patient states that they are concerned about money, no employment, feel useless, and worried about not being able to contribute to society. Patient Strengths Patient is 100 days sober from ETOH, patient sees a psychiatrist regularly, patient is seeking help today and planning to move with their mother in the coming months for more support. Current Behavioral Health Provider(s) Patient sees Psychiatrist Dr. Julio Workman, Provider, Ph. # Ramo at [facility] (Ph. # [phone] ) patient's most recent appt was on 08/09/24, patient has upcoming appts in September. Patient gives consent for EXECUTIVE ASST to inform Dr. Ralph of patient's presentation to ED, EXECUTIVE ASST calls clinic and leaves VM . Psych. Hx Mental Health and Chemical Patient has hx of Bipolar 1 Dependency Disorder, ADHD, PTSD, ETOH and substance use disorder, Anxiety, Gender Dysphoria, SI, and hx of suicidal attempts. Patient endorses that they are 100 days sober and have been attending AA. Family Hx of Behavioral Abuse Patient's family has significant hx of EMILY and mental illness. Psychiatric Hospitalizations (date(s)/ Most recently patient was location) voluntary at [facility] in July 2024 due to concern for SI, [facility] [place] [facility] . Patient was voluntary at [facility] in May 2024, voluntary at [place] in January and March 2024 and at [facility] in 2021. Psychosocial information & Support Patient is 19 y/o transgender Systems male (He/Him/His) patient is currently staying with a friend in [place] as they lost their housing. Patient endorses plan to move to [place] in October to reside with mother to be closer to supports and for financial reasons. School/Work Unemployed currently Legal Concerns Legal Matters - Outstanding Issues None reported Mental Status Orientation (Person/Place/Time) A/Ox4 Stated Mood stressed Affect (Congruent with Mood?) flat, fatigued, dysthymic, congruent with mood Thought Content - Specify/Describe None reported. Patient has hx Obsessions, Delusions, Hallucinations of hearing a voice telling him that something bad will happen, but denies AH commands . Thought Processes (Lakgwii-Bqvcgieh-Jseq coherent, goal directed Ihsmvogr-Vkbhtfvy-Efqlmvywaq- Moyjqwreaznjck-Ilvewaa-Kpptoydpwkje- Thought Blocking) Speech (Ryccgt-Obdl-Qxfqgax-Rapid-Soft- soft/quiet Loud-Pressured) Motor (Roilxb-Xrsrcckzf-Moii-Other) slow/tired Insight (Elgj-Ncfg-Gsyy/Limited) fair/limited Judgement (Ppzc-Pvoq-Nkyu/Limited) fair/limited Impulse Control (Adequate-Impaired) adequate during assessment Memory (Tqgrrzdkl-Qbsmpq-Zhuhti, intact, not formally assessed Impaired-Intact) Concentration (Intact-Impaired) intact Attention (Intact-Impaired) intact Behavior (Appropriate-Inappropriate) appropriate Additional Comment Patient presents as calm, cooperative and communicative. Risk Assessment Suicidal Ideation (Plan) Yes Homicidal Ideation (Plan) No Comment Patient endorses increase in SI in recent weeks, patient endorses that they remembered that they had access to medication and overdosed on pills with intent to kill self . Patient has hx of SI with plan to overdose and hx of overdose at age 12. Patient has hx of laceration attempt at age 14 and attempt to hang self at age 15. Intervention Intervention EXECUTIVE ASST enters room to meet with patient, present with patient is patient's friend. Patient gives consent for friend to be present. Patient endorses increase in frequent SI, significant life stressors and feelings of hopelessness. Patient endorses more frequent sleeping as well. Patient states that they felt useless and that they could not reach out for help and overdosed on their prescribed medication. Patient is voluntary for Inpatient hospitalization and seeking help upon medical clearance. Per poison control, patient requires 12 hours of observation prior to medical clearance. It is the opinion of this EXECUTIVE ASST that patient is appropriate for and will benefit from voluntary inpatient hospitalization for safety, crisis stabilization and medication management. EXECUTIVE ASST reviews this with RN, EXECUTIVE ASST to review this with ED provider. Plan RA Plan ED team to seek voluntary inpatient hospitalization upon medical clearance. EDE GonzalezSW
--- NOTE | 2024-08-31 18:55 | EKG_ITS ---
[address] [address] Test Date: 2024-08-31 Pat Name: Lb Quiles Department: [facility] Room: Gender: Female Scrap Preparer: MATT : 2005 Requested By: Order Number: [id number] Reading MD: Tigre Vaca Measurements Intervals [place] Rate: 99 P: 57 DC: 130 QRS: 73 QRSD: 84 T: 20 QT: 344 QTc: 441 Interpretive Statements Normal sinus rhythm Electronically Signed On 09-01-2024 17:39:57 PDT by Tigre Vaca
--- NOTE | 2024-08-31 19:13 | PC.NURSE ---
Chest ride and fall observed. Pt arousable to touch and sound, but sleepy. Answers all questions appropriately. A&Ox4.
--- NOTE | 2024-08-31 19:40 | ED.PSYCH ---
HPI - Psych General Chief Complaint: Psychiatric Symptoms Stated Complaint: SI Time Seen by Provider: 08/31/24 18:17 Source: patient Mode of arrival: Ambulatory History of Present Illness HPI Narrative: 19-year-old female with history of depression followed by local psychiatrist Dr. Banuelos, took ingestion non accidental of her own Depakote 50 mg tablets about 30 tablets, along with Gabapentin 300 mg strength tablets she states 15 tablets, taken together at the same time at 4:10 p.m. today. She feels a little sleepy. She was trying to hurt herself. She has recent money social stressors. No spasm, shaking, seizure activity. Related Data Home Medications Medication Instructions Recorded Confirmed prednisone 20 mg tablet mg PO 07/22/24 07/22/24 testosterone 2 pump topical DAILY 08/31/24 08/31/24 Previous Rx's Medication Instructions Recorded aripiprazole 5 mg tablet (Abilify) 5 mg PO DAILY #30 tabs 12/08/23 albuterol sulfate 90 mcg/actuation 2 puff inhalation Q6H PRN 02/27/24 aerosol inhaler shortness of breath or wheezing #8.5 grams aripiprazole 400 mg intramuscular 400 mg IM QMONTH #1 ea 05/17/24 suspension,extended release (Abilify Maintena) topiramate 100 mg tablet (Topamax) 100 mg PO BID #60 tabs 07/08/24 aripiprazole 10 mg tablet 10 mg PO BEDTIME #30 tabs 07/12/24 ondansetron 4 mg disintegrating 4 mg PO Q8H PRN nausea and 07/22/24 tablet vomiting #30 tabs levothyroxine 50 mcg tablet 50 mcg PO DAILY #30 tabs 07/26/24 divalproex 500 mg tablet,delayed 500 mg PO BID #60 tabs 08/09/24 release quetiapine 100 mg tablet 100 mg PO BEDTIME PRN anxiety #30 08/09/24 tabs Allergies Allergy/AdvReac Type Severity Reaction Status Date / Time testosterone Allergy Intermediate Rash Verified 07/22/24 08:16 adhesive Allergy Mild Rash Verified 08/31/24 16:27 [place] And Derivatives Allergy Unknown mouth Verified 07/22/24 08:16 sores, nausea nicotine patch AdvReac Mild Rash Uncoded 07/22/24 08:16 Patient History Medical History (Updated 09/01/24 @ 07:40 by Patel Preston MD) Hypothyroidism [place] use Cyst of ovary Primary dysmenorrhea Abnormal uterine bleeding (AUB) Inhalant use disorder, mild, abuse Marijuana dependence Vapes nicotine containing substance Alcohol addiction Bipolar 1 disorder Gender dysphoria Bulimia (~2020) History of bipolar disorder (~2018) Anorexia nervosa (~2019) Migraines (~2018) Fractures Chronic back pain (~2014) History of recurrent ear infection (~2014) Painful menstrual periods (~2017) History of self-harm ADHD (~2009) CHAMP (generalized anxiety disorder) (~2009) PTSD (post-traumatic stress disorder) (~2008) Major depression, single episode Family History (Updated 07/16/24 @ 15:33 by Soheila Brandon MA) Father Mental health problem Anxiety PTSD (post-traumatic stress disorder) Depression Substance use Mother Mental health problem Gastroparesis Gastritis History of bipolar disorder Depression History of anorexia nervosa History of bulimia PTSD (post-traumatic stress disorder) Anxiety Sister Mental health problem Autism PTSD (post-traumatic stress disorder) Anxiety ADHD Sister Mental health problem ADHD Grandmother Thyroid disorder History of anorexia nervosa Social History household members: friend(s) Smoking Status: Current every day smoker alcohol intake: former Smoking Status: Current every day smoker tobacco type: vaping alcohol intake frequency: 3 or more drinks per day Alcohol type: hard liquor Exam Narrative Exam Narrative: GENERAL: Well-developed patient, in mild distress. HEAD: Atraumatic. Normocephalic. EYES: Pupils equal round and reactive. Extraocular motions intact. No scleral icterus. No injection or drainage. ENT: Nose without bleeding, purulent drainage. Throat without erythema, tonsillar hypertrophy or exudate. Airway patent. NECK: Trachea midline. Non tender CARDIOVASCULAR: Regular rate and rhythm without murmurs, gallops, or rubs. RESPIRATORY: Clear to auscultation. Breath sounds equal bilaterally. No wheezes, rales, or rhonchi. GASTROINTESTINAL: Abdomen soft, non-tender, nondistended. EXTREMITIES: No edema or joint tenderness. BACK: Nontender without deformity or crepitance. No flank tenderness. NEURO: AOx3. Motor functions grossly nonfocal, no rigidity, no seizure activity SKIN: No rash or erythema of visible areas Initial Vital Signs Initial Vital Signs: Vital Signs Temperature 99.2 F 08/31/24 16:31 Pulse Rate 105 H 08/31/24 16:31 Respiratory Rate 16 08/31/24 16:31 Blood Pressure 121/68 08/31/24 16:31 Pulse Oximetry 98 08/31/24 16:31 Oxygen Delivery Method Room Air 08/31/24 16:31 Course Orders Ordered: Discontinued Medications Charcoal (Activated Charcoal 50 Gm/240 Ml) 72 gm PO NOW ONE Stop: 08/31/24 17:31 Last Admin: 08/31/24 17:32 Dose: 72 gm Documented By: DAVID Sodium Chloride (Normal Saline 0.9%) 1,000 mls @ 1,000 mls/hr IV BOLUS ONE Stop: 09/01/24 09:02 Last Infusion: 09/01/24 08:51 Dose: 0 mls/hr Documented By: Admin: 09/01/24 08:20 Dose: 1,000 mls/hr Documented By: BONIFACIO Vital Signs Vital signs: Vital Signs - 8 hr 09/01/24 07:30 09/01/24 07:30 09/01/24 07:59 Temperature Pulse Rate 77 78 Respiratory Rate 19 19 Blood Pressure 91/53 L Pulse Oximetry 99 99 09/01/24 08:00 09/01/24 08:00 09/01/24 08:13 Temperature 98 F Pulse Rate 82 Respiratory Rate 20 Blood Pressure 97/56 L 97/56 L Pulse Oximetry 98 09/01/24 08:30 09/01/24 08:30 Temperature Pulse Rate 84 Respiratory Rate 22 Blood Pressure 99/53 L Pulse Oximetry 99 MDM - Psych Lab Data Attestation: I reviewed the patient's lab results. Lab results narrative: White blood cell count 7800, hemoglobin 13.7, platelets adequate. Renal function normal. Glucose 109. Serum CO2 19 decreased. Electrolytes unremarkable, including magnesium. Ethanol level negative. Acetaminophen level negative. Salicylate level negative. Slight ALT elevation otherwise liver functions normal. COVID negative. UDS positive for marijuana otherwise negative. Urine hCG negative. 08/31/24 17:20 09/01/24 05:10 Labs: Lab Results 08/31/24 08/31/24 08/31/24 Range/Units 16:44 16:48 17:20 WBC 7.8 (4.5-11.0) X10^3/uL RBC 4.45 (4.0-5.2) X10^6/uL Hgb 13.7 (12.0-16.0) g/dL Hct 41.0 (36-46) % MCV 92.2 (80-100) fL MCH 30.9 (26-34) PG MCHC 33.5 (30-36) % RDW 14.9 H (11.6-14.8) % Plt Count 211 (150-400) X10^3/uL Neut % (Auto) 57.3 (50-75) % Lymph % (Auto) 31.2 (25-40) % [place] % (Auto) 5.3 (3-14) % Eos % (Auto) 5.3 H (2-4) % Baso % (Auto) 0.9 (0-2) % Neut # (Auto) 4500 (8000-7263) /uL Lymph # (Auto) 2400 (8079-8383) /uL [place] # (Auto) 400 (0-900) /uL Eos # (Auto) 400 (0-450) /uL Baso # (Auto) 100 (0-100) /uL Sodium 144 (137-145) mmol/L Potassium 4.0 (3.4-5.1) mmol/L Chloride 113 H (98-107) mmol/L Carbon Dioxide 19 L (22-32) mmol/L BUN 13 (7-17) mg/dL Creatinine 1.09 H (0.52-1.04) mg/dL Estimated GFR > 60 (>60) mL/min BUN/Creatinine Ratio 11.9 (6-22) Glucose 109 H (70-99) mg/dL Calcium 9.0 (8.4-10.2) mg/dL Magnesium (1.6-2.3) mg/dL Total Bilirubin 0.3 (0.2-1.3) mg/dL AST 33 (14-36) IU/L ALT 41 H (<35) IU/L Alkaline Phosphatase 57 (38-126) U/L Ammonia 26 (9-30) umol/L Total Protein 6.5 (6.3-8.2) g/dL Albumin 4.3 (3.5-5.0) g/dL Globulin 2.2 (1.7-4.1) g/dL Albumin/Globulin Ratio 2.0 (1.0-2.8) TSH 0.711 (0.47-4.68) uIU/mL Free T4 0.77 L (0.78-2.19) ng/dL Salicylates < 1.0 (<20) mg/dL U Opiates 300ng/mL cut Negative (Negative) Ur Oxycodone Screen Negative (Negative) Urine Methadone Screen Negative (Negative) Acetaminophen < 10 (10-30) ug/mL Ur Barbiturates Screen Negative (Negative) U Tricyclic Antidepress Negative (Negative) Ur Phencyclidine Scrn Negative (Negative) Ur Amphetamines Screen Negative (Negative) U Methamphetamines Scrn Negative (Negative) Ur MDMA Scrn (Ecstasy) Negative (Negative) U Benzodiazepines Scrn Negative (Negative) Urine Cocaine Screen Negative (Negative) U Marijuana (THC) Screen Positive H (Negative) Urine pH Normal (Normal) Urine Specific [place] Normal (Normal) Ethyl Alcohol < 10 ( - 10) mg/dL Ur Creatinine Normal (Normal) SARS-CoV-2 (PCR) Negative (Negative) 08/31/24 09/01/24 Range/Units 23:00 05:10 WBC (4.5-11.0) X10^3/uL RBC (4.0-5.2) X10^6/uL Hgb (12.0-16.0) g/dL Hct (36-46) % MCV (80-100) fL MCH (26-34) PG MCHC (30-36) % RDW (11.6-14.8) % Plt Count (150-400) X10^3/uL Neut % (Auto) (50-75) % Lymph % (Auto) (25-40) % [place] % (Auto) (3-14) % Eos % (Auto) (2-4) % Baso % (Auto) (0-2) % Neut # (Auto) (5200-4635) /uL Lymph # (Auto) (2750-6300) /uL [place] # (Auto) (0-900) /uL Eos # (Auto) (0-450) /uL Baso # (Auto) (0-100) /uL Sodium 141 (137-145) mmol/L Potassium 3.5 (3.4-5.1) mmol/L Chloride 115 H (98-107) mmol/L Carbon Dioxide 17 L (22-32) mmol/L BUN 10 (7-17) mg/dL Creatinine 0.65 (0.52-1.04) mg/dL Estimated GFR > 60 (>60) mL/min BUN/Creatinine Ratio 15.4 (6-22) Glucose 101 H (70-99) mg/dL Calcium 8.4 (8.4-10.2) mg/dL Magnesium 2.1 2.0 (1.6-2.3) mg/dL Total Bilirubin (0.2-1.3) mg/dL AST (14-36) IU/L ALT (<35) IU/L Alkaline Phosphatase (38-126) U/L Ammonia 85 H 118 H (9-30) umol/L Total Protein (6.3-8.2) g/dL Albumin (3.5-5.0) g/dL Globulin (1.7-4.1) g/dL Albumin/Globulin Ratio (1.0-2.8) TSH (0.47-4.68) uIU/mL Free T4 (0.78-2.19) ng/dL Salicylates (<20) mg/dL U Opiates 300ng/mL cut (Negative) Ur Oxycodone Screen (Negative) Urine Methadone Screen (Negative) Acetaminophen (10-30) ug/mL Ur Barbiturates Screen (Negative) U Tricyclic Antidepress (Negative) Ur Phencyclidine Scrn (Negative) Ur Amphetamines Screen (Negative) U Methamphetamines Scrn (Negative) Ur MDMA Scrn (Ecstasy) (Negative) U Benzodiazepines Scrn (Negative) Urine Cocaine Screen (Negative) U Marijuana (THC) Screen (Negative) Urine pH (Normal) Urine Specific [place] (Normal) Ethyl Alcohol ( - 10) mg/dL Ur Creatinine (Normal) SARS-CoV-2 (PCR) (Negative) Point of Care Testing Test Results Negative Urine Dip Bedside Urine Glucose Negative Bedside Urine Bilirubin - Negative Bedside Urine Ketone - Negative Urine Specific [place] 1.015 Bedside Urine Occult Blood - Negative Bedside Urine pH 5.5 Bedside Urine Protein - Negative Bedside Urine Urobilinogen - Negative Bedside Urine Nitrite - Negative Bedside Urine Leukocytes - Negative Esterase ECG Data Attestation: I personally reviewed and interpreted this ECG as follows: Interpretation: 1648, normal sinus rhythm rate of 100. No obvious ST segment elevation. Normal QRS and QTC. KS 126, QRS 80, QTC 433. 1855, normal sinus rhythm with rate of 99, no obvious ST segment elevation. Normal QRS and QTC. KS 130, QRS 84, QTC 441. 2055, normal sinus rhythm with rate of 95, no obvious ST segment elevation. Normal QRS and QTC. KS 132, QRS 82, QTC 452. 2301, normal sinus rhythm with rate of 95, no obvious ST segment elevation. Normal QRS and QTC. KS 128, QRS 84, QTC 447. MDM Narrative Medical decision making narrative: 19-year-old female with non accidental ingestion of medications. Poison control was contacted, recommended oral charcoal, and serial q2 hour EKGs. Initial screening labs sent. Initial EKG without QT prolongation or widening of the QRS. No seizure activity. Patient with normal mentation thus far, no respiratory distress. No dystonic reaction like symptoms. HCG negative. 2344, serial EKGs x4 showed no widening of the QRS, did show some incremental increasing QTC x3 studies, but decreased on fourth study, poison control called back, no further EKGs needed. Ammonia elevated, valproic acid is a send out lab here. Repeat ammonia pending. Ammonia initially 85, now further increased to 118. We will reconsult poison control. Case discussed with poison control who recommended L-carnitine parenteral dose 100 milligrams/kilogram IV over 30 minutes with maximum dose of 6000 mg, then would start 15 milligrams/kilogram IV dose every 4 hours, likely until VPA levels and ammonia levels falling. They are aware that we did not have VPA level capability here. We will query pharmacy if we carry L-carnitine, could not find it in order set. Pharmacy reports no L-carnitine available here. We will re-consult poison control regarding toxicology capable facilities that might carry L-carnitine. Case again discussed with poison control, on their [address] [facility] reported that they carried L-carnitine, no response from [facility] to know if they carry it. We will query larger regional centers regarding L-carnitine. Patient aware of need for higher level of Toxicology care, L-carnitine, with capability of serial VPA level measurements. 0630, case discussed with ED charge nurse at [facility] who will query availability of L-carnitine at their facility. 0650, case discussed with ED provider [facility], they do carry the drug but they are saturated. Consider [facility]. Consider also we could carry your their drug which would be 6000 mg IV for the initial first dose if that is possible. Pharmacy was able to speak with pharmacy at [facility], they might be able to get the medication over here but it might take 3 hours. Patient will still need further monitoring with valproic acid levels that are not available here. Consider transfer to [facility]. We will query [facility]. 9555, case discussed with [facility] intake and then with ED physician Dr Spears, accepts patient for transfer ED to ED. Discharge Plan Departure Patient Disposition: [facility] Clinical Impression: Suicidal ideation, History of bipolar disorder, Valproic acid toxicity, Drug ingestion, Intentional overdose of gabapentin Prescriptions: No Action aripiprazole 10 mg tablet 10 mg PO BEDTIME Qty: 30 0RF Abilify Maintena 400 mg suspension,extended rel recon 400 mg IM QMONTH Qty: 1 3RF quetiapine 100 mg tablet 100 mg PO BEDTIME PRN (Reason: anxiety) Qty: 30 2RF divalproex 500 mg tablet,delayed release (DR/EC) 500 mg PO BID Qty: 60 3RF levothyroxine 50 mcg tablet 50 mcg PO DAILY Qty: 30 11RF aripiprazole [Abilify] 5 mg tablet 5 mg PO DAILY Qty: 30 11RF topiramate [Topamax] 100 mg tablet 100 mg PO BID Qty: 60 0RF Rx Instructions: thru outside provider prednisone 20 mg tablet PO ondansetron 4 mg tablet,disintegrating 4 mg PO Q8H PRN (Reason: nausea and vomiting) Qty: 30 4RF albuterol sulfate 90 mcg/actuation HFA aerosol inhaler 2 puff inhalation Q6H PRN (Reason: shortness of breath or wheezing) Qty: 8.5 0RF testosterone 20.25 mg/1.25 gram (1.62 %) gel in metered-dose pump 2 pump topical DAILY Referrals: Gabe Ayala DO [Primary Care Provider] -
--- NOTE | 2024-08-31 20:55 | EKG_ITS ---
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
--- NOTE | 2024-08-31 22:55 | EKG_ITS ---
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
[2024-08-31 23:23] LABS: Ammonia (NH3) 85 umol/L (9-30); Magnesium 2.1 mg/dL (1.6-2.3)
[2024-09-01] VITALS (18 sets, daily range): BP systolic 91–102; BP diastolic 46–59; PULSE 77–99; RESP 19–24; TEMP 36.6; O2SAT 97–99
--- NOTE | 2024-09-01 02:53 | PC.NURSE ---
Assumed care at 1900 from RN Sukhwinder Britton. Pt drowsy but arousable, calm and cooperative; answers all orientation questions appropriately, endorses SI but no current plan. Continuous 1:1 monitoring. Pt offered nutrition/hydration/toileting every 2-3 hrs throughout shift. Intermittent nausea reported, but no further emesis since the 100 ml reported shortly before 1900. Pt eating sandwiches and drinking water, able to make needs known. @2205 Aamen from [facility] called for followup regarding pt condition, VS, lab values, and EKG results. Recommends no further EKGs unless pt condition changes, and repeat of Valproic acid, Mag, and ammonia now and at 0500 along with BMP.
--- NOTE | 2024-09-01 04:34 | PC.NURSE ---
Poison control called for an update on patient. Officer advised Valproic Acid is a send out and values won't be available for ten days. Increased ammonia levels discussed. Officer informed next valproic acid, ammonia and magnesium draw scheduled for 05:00 am. Poison control recommendation to give patient L-cartinine (levo) 100mg/kg/30min w/a max dose of 6,00mg if ammonia level continues to increase w/next draw. Pt is 72.6 kg. 6,000 mg dose is appropriate. Maintenance dose of 15mg/kg/Q4hr to follow and continue to titrate according to ammonia and valproic acid levels.
[2024-09-01 05:39] LABS: Ammonia (NH3) 118 umol/L (9-30); BUN Creatinine Ratio 15.4 (6-22); Blood Urea Nitrogen 10 mg/dL (7-17); Calcium 8.4 mg/dL (8.4-10.2); Carbon Dioxide 17 mmol/L (22-32); Chloride 115 mmol/L (98-107); Estimated Glomerular Filt Rate > 60 mL/min (>60); Glucose 101 mg/dL (70-99); HEMOLYSIS < 15 (0-50); Potassium 3.5 mmol/L (3.4-5.1); Sodium 141 mmol/L (137-145)
[2024-09-01] MEDS: SODIUM CHLORIDE 0.9% 1,000 ML 1000 ML IV (08:20)
--- NOTE | 2024-09-01 08:55 | PC.NURSE ---
Prior to departure by [employer], flight nurse asked about vape pen or weapons. Asa said he had a vape pen in his pants pocket. Vape pen was removed by [facility] staff and placed in a labled bag and placed in ER locked patiet belongings cabinet.
[2024-09-01 22:40] LABS: Valproic Acid (Depakene) Total 148 ug/mL (50-100)
[2024-09-01 23:10] LABS: Valproic Acid (Depakene) Total 147 ug/mL (50-100)
[2024-09-02 04:08] LABS: Valproic Acid (Depakene) Total 100 ug/mL (50-100)
== END 2024-09-01 08:50 | disposition short-term general hospital (02) ==
PROVIDERS: Family Medicine; Emergency Provider Emergency Medicine; PCP Family Medicine
DX: T42.6X2A Poisoning by other antiepileptic and sedative-hypnotic drugs, intentional self-harm, initial encounter (principal); F31.9 Bipolar disorder, unspecified; R94.31 Abnormal electrocardiogram [ECG] [EKG]
CPT/HCPCS: 36415; 80048; 80053; 80164; 80305; 80320; 80329; 81003; 81025; 82140; 83735; 84439; 84443; 85025; 87635; 93005; 96360; 99285; G0480

== ENCOUNTER 2024-10-07 10:06 | Emergency (ER) | payer OTHER, SELFPAY ==
[2024-10-07 10:12] VITALS: BP 138/72; PULSE 83; RESP 20; TEMP 36.6; O2SAT 96; BMI 32.2
[2024-10-07 13:50] LABS: Add Manual Diff / Slide Review NO; Basophils Absolute Auto 100 /uL (0-100); Basophils Percent Auto 0.7 % (0-2); Eosinophils Absolute Auto 100 /uL (0-450); Eosinophils Percent Auto 1.5 % (2-4); Hematocrit 47.4 % (36-46); Hemoglobin 15.7 g/dL (12.0-16.0); Lymphocytes Absolute Auto 2200 /uL (1100-4500); Lymphocytes Percent Auto 29.3 % (25-40); Mean Corpuscular HGB Conc 33.2 % (30-36); Mean Corpuscular Hemoglobin 30.9 PG (26-34); Monocytes Absolute Auto 500 /uL (0-900); Neutrophils Absolute Auto 4800 /uL (1500-7000); Neutrophils Percent Auto 62.5 % (50-75); Platelet Count 293 X10^3/uL (150-400); Red Cell Distribution Width 14.8 % (11.6-14.8); White Blood Cell Count 7.7 X10^3/uL (4.5-11.0)
--- NOTE | 2024-10-07 13:51 | ED_ITS ---
HPI - Alcohol <Alina Cadena PA-C - Last Filed: 10/07/24 17:53> General Chief Complaint: Toxicology Problem Stated Complaint: needs to go to Detox Time Seen by Provider: 10/07/24 10:57 Source: patient Mode of arrival: Ambulatory History of Present Illness HPI narrative: Lb Garcia is a pleasant 19-year-old biologic female, he/him pronouns on testosterone gel, with a past medical history of type 1 bipolar disorder, GERD, depression, PTSD, self-harm, chronic low back pain and nausea, alcohol use disorder who presents to the emergency department for alcohol detox. Patient previously went to rehab earlier this year and was sober for 4 months however they relapsed in September due to boredom and stress. Patient has been drinking about 7 shots of vodka throughout the day every day. Last night a family friend encouraged the patient to seek detox which is what brings him to the emergency department today. Last drink was at midnight last night. He is starting to feel some nausea which he states is chronic and slight shakiness of the hands but otherwise no other symptoms. No history of alcohol withdrawal or seizures. Only current prescription medications are Zofran. He does use marijuana and vape. No vomiting, chest pain, shortness of breath, fevers, chills, confusion. No SI/HI. Related Data Home Medications ?Medication ?Instructions ?Recorded ?Confirmed prednisone 20 mg tablet mg PO 07/22/24 09/08/24 testosterone 2 pump topical DAILY 5 09/08/24 Previous Rx's ?Medication ?Instructions ?Recorded albuterol sulfate 90 mcg/actuation 2 puff inhalation Q 6H PRN 02/27/24 aerosol inhaler shortness of breath or wheez ing #8.5 grams aripiprazole 400 mg intramuscular 400 mg IM QMONTH #1 ea 05/17/24 suspension,extended release (Abilify Maintena) topiramate 100 mg tablet (Topamax) 100 mg PO BID #60 t abs 07/08/24 ondansetron 4 mg disintegrating 4 mg PO Q8H PRN nausea and 07/22/24 tablet vomiting #30 tabs levothyroxine 50 mcg tablet 50 mcg PO DAILY #30 tabs 0 07/26/24 Allergies Allergy/AdvReac Type Severity Reaction Status Date / Time testosterone Allergy Intermediate Rash Verified 10/07/24 10:13 adhesive Allergy Mild Rash Verified 10/07/24 10:13 Mars And Derivatives Allergy Unknown mouth Verified 10/07/24 10:13 sores, nausea Review of Systems <Alina Cadena PA-C - Last Filed: 10/07/24 17:53> Review of Systems ROS Unobtainable: All systems reviewed & are unremarkable except as noted in HPI and below Patient History <Alina Cadena PA-C - Last Filed: 10/07/24 17:53> Medical History Alcohol use disorder, severe, in early remission Hypothyroidism Birdseye use Cyst of ovary Primary dysmenorrhea Abnormal uterine bleeding (AUB) Inhalant use disorder, mild, abuse Marijuana dependence Vapes nicotine containing substance Alcohol addiction Bipolar 1 disorder Gender dysphoria Bulimia (~2020) History of bipolar disorder (~2017) Anorexia nervosa (~2019) Migraines (~2018) Fractures Chronic back pain (~2014) History of recurrent ear infection (~2014) Painful menstrual periods (~2017) History of self-harm ADHD (~2009) CHAMP (generalized anxiety disorder) (~2009) PTSD (post-traumatic stress disorder) (~2008) Major depression, single episode Family History Father Mental health problem Anxiety PTSD (post-traumatic stress disorder) Depression Substance use Mother Mental health problem Gastroparesis Gastritis History of bipolar disorder Depression History of anorexia nervosa History of bulimia PTSD (post-traumatic stress disorder) Anxiety Sister Mental health problem Autism PTSD (post-traumatic stress disorder) Anxiety ADHD Sister Mental health problem ADHD Grandmother Thyroid disorder History of anorexia nervosa Social History household members: friend(s) Smoking Status: Current every day smoker alcohol intake: former Smoking Status: Current every day smoker tobacco type: vaping alcohol intake frequency: 3 or more drinks per day Alcohol type: hard liquor Exam <Alina Cadena PA-C - Last Filed: 10/07/24 17:53> Narrative Exam Narrative: GENERAL: 19 year old patient appears stated age. Well-developed patient, in no acute distress. HEAD: Atraumatic. Normocephalic. EYES: Extraocular motions intact. No scleral icterus. No injection or drainage. NECK: Trachea midline. Cervical ROM intact. CARDIOVASCULAR: Regular rate and rhythm. RESPIRATORY: ?Nonlabored respirations. ?Speaking in clear, full sentences. ?Clear to auscultation. Breath sounds equal bilaterally. No wheezes, rales, or rhonchi. ? GASTROINTESTINAL: Abdomen soft, non-tender, nondistended. EXTREMITIES: No edema or joint tenderness. NEURO: AOx3. ?Clear speech. ?Moves all 4 extremities appropriately. Slight active tremor of bilateral hands. Steady gait. Psych: Good insight and judgment, provides clear history, no SI or HI. SKIN: No rash or erythema of visible areas Initial Vital Signs Initial Vital Signs: Vital Signs Temperature 98 F 10/07/24 10:12 Pulse Rate 83 10/07/24 10:12 Respiratory Rate 20 10/07/24 10:12 Blood Pressure 138/72 10/07/24 10:12 Pulse Oximetry 96 10/07/24 10:12 Oxygen Delivery Method Room Air 10/07/24 10:12 <Gonzalez Ruiz MD - Last Filed: 10/11/24 07:51> Initial Vital Signs Initial Vital Signs: Vital Signs Temperature 98 F 10/07/24 10:12 Pulse Rate 83 10/07/24 10:12 Respiratory Rate 20 10/07/24 10:12 Blood Pressure 138/72 10/07/24 10:12 Pulse Oximetry 96 10/07/24 10:12 Oxygen Delivery Method Room Air 10/07/24 10:12 Course <Alina Cadena PA-C - Last Filed: 10/07/24 17:53> Orders Ordered: Discontinued Medications Ondansetron HCl (Ondansetron 4 Mg Odt) 4 mg SL NOW ONE Stop: 10/07/24 13:52 Last Admin: 10/07/24 13:56 Dose: 4 mg Documented By: MARICHUY Vital Signs Vital signs: Vital Signs - 8 hr 10/07/24 10:12 10/07/24 17:37 Temperature 98 F Pulse Rate 83 75 Respiratory Rate 20 16 Blood Pressure 138/72 132/78 Pulse Oximetry 96 96 Oxygen Delivery Method Room Air Room Air <Gonzalez Ruiz MD - Last Filed: 10/11/24 07:51> Orders Ordered: Discontinued Medications Ondansetron HCl (Ondansetron 4 Mg Odt) 4 mg SL NOW ONE Stop: 10/07/24 13:52 Last Admin: 10/07/24 13:56 Dose: 4 mg Documented By: MARICHUY Vital Signs Vital signs: Vital Signs - 8 hr 10/07/24 10:12 10/07/24 17:37 Temperature 98 F Pulse Rate 83 75 Respiratory Rate 20 16 Blood Pressure 138/72 132/78 Pulse Oximetry 96 96 Oxygen Delivery Method Room Air Room Air MDM - Alcohol <Alina Cadena PA-C - Last Filed: 10/07/24 17:53> Medical Records Attestation: I reviewed the patient's medical records. Lab Data 10/07/24 13:27 10/07/24 13:27 Labs: Lab Results 10/07/24 10/07/24 10/07/24 Range/Units 13:27 14:11 14:14 WBC 7.7 (4.5-11.0) X10^3/uL RBC 5.10 (4.0-5.2) X10^6/uL Hgb 15.7 (12.0-16.0) g/dL Hct 47.4 H (36-46) % MCV 93.0 (80-100) fL MCH 30.9 (26-34) PG MCHC 33.2 (30-36) % RDW 14.8 (11.6-14.8) % Plt Count 293 (150-400) X10^3/uL Neut % (Auto) 62.5 (50-75) % Lymph % (Auto) 29.3 (25-40) % [place] % (Auto) 6.0 (3-14) % Eos % (Auto) 1.5 L (2-4) % Baso % (Auto) 0.7 (0-2) % Neut # (Auto) 4800 (6028-6159) /uL Lymph # (Auto) 2200 (8599-5856) /uL [place] # (Auto) 500 (0-900) /uL Eos # (Auto) 100 (0-450) /uL Baso # (Auto) 100 (0-100) /uL Sodium 140 (137-145) mmol/L Potassium 4.6 (3.4-5.1) mmol/L Chloride 103 (98-107) mmol/L Carbon Dioxide 25 (22-32) mmol/L BUN 13 (7-17) mg/dL Creatinine 0.81 (0.52-1.04) mg/dL Estimated GFR > 60 (>60) mL/min BUN/Creatinine Ratio 16.0 (6-22) Glucose 93 (70-99) mg/dL Calcium 9.8 (8.4-10.2) mg/dL Magnesium 2.1 (1.6-2.3) mg/dL Total Bilirubin 0.9 (0.2-1.3) mg/dL AST 29 (14-36) IU/L ALT 27 (<35) IU/L Alkaline Phosphatase 102 (38-126) U/L Total Protein 7.9 (6.3-8.2) g/dL Albumin 5.0 (3.5-5.0) g/dL Globulin 2.9 (1.7-4.1) g/dL Albumin/Globulin Ratio 1.7 (1.0-2.8) TSH 1.16 (0.47-4.68) uIU/mL Urine RBC 1-5/hpf (0-5/HPF) Urine WBC 1-5/hpf (0-5/HPF) Ur Squamous Epith Cells 5-10 /hpf H (0-5/HPF) Urine Bacteria Occasional (0-1) (None) Ur Culture Indicated? Cult not indicated Vol Urine Centrifuged 10ml (spun) U Opiates 300ng/mL cut Negative (Negative) Ur Oxycodone Screen Negative (Negative) Urine Methadone Screen Negative (Negative) Ur Barbiturates Screen Negative (Negative) U Tricyclic Antidepress Negative (Negative) Ur Phencyclidine Scrn Negative (Negative) Ur Amphetamines Screen Negative (Negative) U Methamphetamines Scrn Negative (Negative) Ur MDMA Scrn (Ecstasy) Negative (Negative) U Benzodiazepines Scrn Negative (Negative) Urine Cocaine Screen Negative (Negative) U Marijuana (THC) Screen Positive H (Negative) Urine pH Normal (Normal) Urine Specific [place] Normal (Normal) Ethyl Alcohol < 10 (<10) mg/dL Ur Creatinine Normal (Normal) Point of Care Testing Test Results Negative Urine Dip Bedside Urine Glucose Negative Bedside Urine Bilirubin - Negative Bedside Urine Ketone - Negative Urine Specific [place] 1.015 Bedside Urine Occult Blood - Negative Bedside Urine pH 6.5 Bedside Urine Protein +/- 15 Bedside Urine Urobilinogen - Negative Bedside Urine Nitrite - Negative Bedside Urine Leukocytes - Negative Esterase MDM Narrative Medical decision making narrative: 19-year-old biologic female, he/him pronouns on testosterone gel, with a past medical history of type 1 bipolar disorder, GERD, depression, PTSD, self-harm, chronic low back pain and nausea, alcohol use disorder who presents to the emergency department for alcohol detox. Differential diagnosis includes but isn't limited to alcohol detox, alcohol withdrawal, etc. On exam the patient is in no acute distress, nontoxic-appearing, all vital signs within normal limits. There experiencing mild nausea and mild subjective hand tremors however overall feeling well. We will obtain baseline labs including electrolytes, Zofran, patient will be a voluntary admission for alcohol detox. Labs overall reassuring with normal WBC count 7.7. Normal electrolytes sodium 140, potassium 4.6, chloride 103, magnesium 2.1. Normal renal function BUN 13 creatinine 0.81. LFTs within normal limits. UA with some contamination is signs of infection. You drug screen positive for marijuana as expected, negative alcohol level. Patient is medically cleared and appropriate for alcohol detox facility voluntary. Patient accepted to [facility]. Patient agreeable to transfer, diet ordered, no concerns at this time. Stable for transfer. <Gonzalez Ruiz MD - Last Filed: 10/11/24 07:51> Lab Data Labs: Lab Results 10/07/24 10/07/24 10/07/24 Range/Units 13:27 14:11 14:14 WBC 7.7 (4.5-11.0) X10^3/uL RBC 5.10 (4.0-5.2) X10^6/uL Hgb 15.7 (12.0-16.0) g/dL Hct 47.4 H (36-46) % MCV 93.0 (80-100) fL MCH 30.9 (26-34) PG MCHC 33.2 (30-36) % RDW 14.8 (11.6-14.8) % Plt Count 293 (150-400) X10^3/uL Neut % (Auto) 62.5 (50-75) % Lymph % (Auto) 29.3 (25-40) % [place] % (Auto) 6.0 (3-14) % Eos % (Auto) 1.5 L (2-4) % Baso % (Auto) 0.7 (0-2) % Neut # (Auto) 4800 (8718-0803) /uL Lymph # (Auto) 2200 (4848-8971) /uL [place] # (Auto) 500 (0-900) /uL Eos # (Auto) 100 (0-450) /uL Baso # (Auto) 100 (0-100) /uL Sodium 140 (137-145) mmol/L Potassium 4.6 (3.4-5.1) mmol/L Chloride 103 (98-107) mmol/L Carbon Dioxide 25 (22-32) mmol/L BUN 13 (7-17) mg/dL Creatinine 0.81 (0.52-1.04) mg/dL Estimated GFR > 60 (>60) mL/min BUN/Creatinine Ratio 16.0 (6-22) Glucose 93 (70-99) mg/dL Calcium 9.8 (8.4-10.2) mg/dL Magnesium 2.1 (1.6-2.3) mg/dL Total Bilirubin 0.9 (0.2-1.3) mg/dL AST 29 (14-36) IU/L ALT 27 (<35) IU/L Alkaline Phosphatase 102 (38-126) U/L Total Protein 7.9 (6.3-8.2) g/dL Albumin 5.0 (3.5-5.0) g/dL Globulin 2.9 (1.7-4.1) g/dL Albumin/Globulin Ratio 1.7 (1.0-2.8) TSH 1.16 (0.47-4.68) uIU/mL Urine RBC 1-5/hpf (0-5/HPF) Urine WBC 1-5/hpf (0-5/HPF) Ur Squamous Epith Cells 5-10 /hpf H (0-5/HPF) Urine Bacteria Occasional (0-1) (None) Ur Culture Indicated? Cult not indicated Vol Urine Centrifuged 10ml (spun) U Opiates 300ng/mL cut Negative (Negative) Ur Oxycodone Screen Negative (Negative) Urine Methadone Screen Negative (Negative) Ur Barbiturates Screen Negative (Negative) U Tricyclic Antidepress Negative (Negative) Ur Phencyclidine Scrn Negative (Negative) Ur Amphetamines Screen Negative (Negative) U Methamphetamines Scrn Negative (Negative) Ur MDMA Scrn (Ecstasy) Negative (Negative) U Benzodiazepines Scrn Negative (Negative) Urine Cocaine Screen Negative (Negative) U Marijuana (THC) Screen Positive H (Negative) Urine pH Normal (Normal) Urine Specific [place] Normal (Normal) Ethyl Alcohol < 10 (<10) mg/dL Ur Creatinine Normal (Normal) Point of Care Testing Test Results Negative Urine Dip Bedside Urine Glucose Negative Bedside Urine Bilirubin - Negative Bedside Urine Ketone - Negative Urine Specific [place] 1.015 Bedside Urine Occult Blood - Negative Bedside Urine pH 6.5 Bedside Urine Protein +/- 15 Bedside Urine Urobilinogen - Negative Bedside Urine Nitrite - Negative Bedside Urine Leukocytes - Negative Esterase Discharge Plan Departure Patient Disposition: Xfer Psychiatric Hosp Clinical Impression: Alcohol use disorder Prescriptions: No Action Abilify Maintena 400 mg suspension,extended rel recon 400 mg IM QMONTH Qty: 1 3RF levothyroxine 50 mcg tablet 50 mcg PO DAILY Qty: 30 11RF topiramate [Topamax] 100 mg tablet 100 mg PO BID Qty: 60 0RF Rx Instructions: thru outside provider prednisone 20 mg tablet PO ondansetron 4 mg tablet,disintegrating 4 mg PO Q8H PRN (Reason: nausea and vomiting) Qty: 30 4RF albuterol sulfate 90 mcg/actuation HFA aerosol inhaler 2 puff inhalation Q6H PRN (Reason: shortness of breath or wheezing) Qty: 8.5 0RF testosterone 20.25 mg/1.25 gram (1.62 %) gel in metered-dose pump 2 pump topical DAILY Referrals: Gabe Ayala DO [Primary Care Provider, Family Practice] ED Sign-out <Gonzalez Ruiz MD - Last Filed: 10/11/24 07:51> Cosign ED Attending Shawn Attestation: I was immediately available in the department for consultation. ?This documentation has been reviewed and I agree with assessment and plan. Supervised by Gonzalez Ruiz MD
[2024-10-07] MEDS: ONDANSETRON 4 MG ODT SL (13:56)
[2024-10-07 13:59] LABS: Alanine Aminotransferase 27 IU/L (<35); Albumin Globulin Ratio 1.7 (1.0-2.8); Alkaline Phosphatase 102 U/L (38-126); Aspartate Aminotransferase 29 IU/L (14-36); Bilirubin Total 0.9 mg/dL (0.2-1.3); Blood Urea Nitrogen 13 mg/dL (7-17); Calcium 9.8 mg/dL (8.4-10.2); Carbon Dioxide 25 mmol/L (22-32); Chloride 103 mmol/L (98-107); Estimated Glomerular Filt Rate > 60 mL/min (>60); Ethanol (ETOH) < 10 mg/dL (<10); Globulin 2.9 g/dL (1.7-4.1); Glucose 93 mg/dL (70-99); HEMOLYSIS < 15 (0-50); Magnesium 2.1 mg/dL (1.6-2.3); Potassium 4.6 mmol/L (3.4-5.1); Sodium 140 mmol/L (137-145); Total Protein 7.9 g/dL (6.3-8.2)
--- NOTE | 2024-10-07 14:26 | CM.SWNOTE ---
ED SHAREPOINT SOLUTIONS DEVELOPER Assessment Note: SHAREPOINT SOLUTIONS DEVELOPER - Nursing Program Director Assessment SHAREPOINT SOLUTIONS DEVELOPER/Nursing Program Director Assessment Time Spent with Patient Start date 10/07/24 Visit Start Time 14:00 End date 10/07/24 Visit End Time 14:12 Total time Care 12 minutes, 20min total Management spent on patient visit-in minutes Mental Health Screening Include Onset, Duration, Intensity Presenting Problem Preferred name: Asa (Aye-sah) Pronouns: He/Him/His Patient presents to the ED via self requesting ETOH detox. Patient explains they have been drinking approximately 7 shots of vodka per day for the past few months. Last drink was at midnight on 10/07/24. Precipitating Event( Patient explains they are unemployed and are bored. s) State they have been self-medicating because they experience a lot of anxiety during the day and no other ways of coping. Patient Strengths Patient is communicative and seeking help. Current Behavioral None currently. Health Provider(s) Include Facility, Provider, Ph. # Psych. Hx Mental Patient has hx of Bipolar 1, Dependency Disorder, ADHD, Health and Chemical PTSD, ETOH and substance use disorder, Anxiety, Gender Dependency Dysphoria, SI, and hx of suicidal attempts. Patient endorses that they were 4 months sober. Family Hx of None reported. Behavioral Abuse [facility] - July [facility], [facility] Treatment in [place] - June 2024. Patient was date(s)/location) voluntary at [facility] in May 2024, voluntary at [place] in January and March 2024 and at [facility] in 2021. Psychosocial Patient is 19 y/o transgender male (He/Him/His) who information & resides in [place] with a friend. Support Systems School/Work Currently unemployed, had a prospective job at [employer] . Legal Concerns Legal Matters - None reported. Outstanding Issues Mental Status Orientation (Person/ AOx3 Place/Time) Affect (Congruent Flat, cooperative, congruent with mood with Mood?) Thought Content - None reported, none identified during assessment. Specify/Describe Obsessions, Delusions, Hallucinations Thought Processes ( Logical, coherent Logical-Coherent- Goal Directed- Detailed-Tangential- Circumstantial- Logical-Disorganized -Thought Blocking) Speech (Normal-Slow- Normal Tzppwgj-Ejfhj-Lygo- Loud-Pressured) Motor (Normal- Normal Perabgpwl-Zhyf-Wyshi ) Insight (Good-Fair- Fair Poor/Limited) Judgement (Good-Fair Good -Poor/Limited) Impulse Control ( Impaired Adequate-Impaired) Memory (Immediate- Intact Recent-Remote, Impaired-Intact) Concentration ( Intact Intact-Impaired) Attention (Intact- Intact Impaired) Behavior ( Appropriate Appropriate- Inappropriate) Additional Comment Patient is calm, cooperative and communicative during assessment. Risk Assessment Suicidal Ideation ( No Plan) Homicidal Ideation ( No Plan) Intervention Intervention Reviewed chart and discussed with ED Provider pt's medical status and discharge needs. ED SHAREPOINT SOLUTIONS DEVELOPER meets with patient. Patient endorses maladaptive coping skills via drinking approximately 7 shots of vodka a day. Patient explains they are currently unemployed and have been self-medicating with vodka to cope with their boredom and anxiety throughout the day. Patient acknowledges they have an extensive mental health background and do not feel that is stable at this time. ED SHAREPOINT SOLUTIONS DEVELOPER and patient discuss goals of care. Patient explains they are agreeable to receive inpatient behavioral health/detox at this time. At this time, it is the opinion of this SHAREPOINT SOLUTIONS DEVELOPER that patient would benefit from inpatient detox for ETOH withdrawal and MH stabilization. SHAREPOINT SOLUTIONS DEVELOPER informs ED provider, JOSE Cadena, who indicates agreement. SHAREPOINT SOLUTIONS DEVELOPER informs MARVIN Le. Plan RA Plan Once patient is medically clear, ED staff will attempt to find inpatient placement for patient. Patient stated a preference for a detox facility that can also assist with co-occurring diagnoses when withdrawal period is complete. AMINATA Pinzon
[2024-10-07 14:30] LABS: TSH w/ Reflex to FT4 1.16 uIU/mL (0.47-4.68)
[2024-10-07 14:34] LABS: Ur Creatinine Normal (Normal); Ur Specific Gravity Normal (Normal); Urine Amphetamines Negative (Negative); Urine Barbiturates Negative (Negative); Urine Benzodiazepines Negative (Negative); Urine Cocaine Negative (Negative); Urine MDMA Negative (Negative); Urine Methadone Negative (Negative); Urine Opiates Negative (Negative); Urine Oxycodone Negative (Negative); Urine Phencyclidine Negative (Negative); Urine THC Positive (Negative); Urine Tricyclic Antidepressant Negative (Negative); Urine pH Normal (Normal)
[2024-10-07 14:35] LABS: Bacteria Urine Occasional (0-1); Culture Indicated Urine Cult Not Indicated; RBC Urine 1-5/HPF (0-5/HPF); Squamous Epithelial Cell Urine 5-10 /HPF (0-5/HPF); Urine Volume 10mL (spun); WBC Urine 1-5/HPF (0-5/HPF)
--- NOTE | 2024-10-07 16:07 | CM.SWNOTE ---
ED SILICA SPRAY MIXER Note: ED SILICA SPRAY MIXER initiated bed search for inpatient treatment. SILICA SPRAY MIXER calls [facility], it was reported that there are beds available. SILICA SPRAY MIXER sent packet for review. SILICA SPRAY MIXER received call from [facility], Intake reports patient is accepted for inpatient treatment, they are requesting patient to arrive at their facility after 1900. Provider: ALISHA Chacon RN-RN Report#: [phone] SILICA SPRAY MIXER called [facility] and coordinated BLS transport for patient from ED at 1800, to arrive at facility at 1999. ED SILICA SPRAY MIXER notified MARVIN Mendieta and [facility]. Plan: Anticipating transfer to [facility] via [facility] at 1800 with an arrival at 1999. ED staff to coordinate transfer. AMINATA Pinzon
[2024-10-07 17:37] VITALS: BP 132/78; PULSE 75; RESP 16; O2SAT 96
== END 2024-10-07 18:10 ==
PROVIDERS: Emergency Provider Physician Assistant; PCP Family Medicine
DX: F10.21 Alcohol dependence, in remission (principal)
CPT/HCPCS: 36415; 80053; 80305; 80320; 81003; 81015; 81025; 83735; 84443; 85025; 87086; 99284